=== PATIENT | male | born 1945 | race African-American/Black ===

== ENCOUNTER 2017-04-01 08:53 | Inpatient (IN) | payer MEDICARE, MEDICAID ==
[~2017-04-01] VITALS: Ht 190.5 cm; Wt 85.7 kg
[~2017-04-01 08:53] MED LIST: AMLO5TAB4 PO; ASPI-1158 PO; COR25 PO; LOSA50TA20 PO
[2017-04-01] MEDS ORDERED: MORPHINE SULFATE 4 MG/ML CPJ (NOT FOR IM USE) IV STA ×2 (09:10→12:54)
[2017-04-01] MEDS ORDERED: SODIUM CHLORIDE 0.9% 500 ML IV ONE (09:10)
[2017-04-01] MEDS ORDERED: ONDANSETRON HCL 4MG/2ML VIAL IV STA ×2 (09:10→12:54)
[2017-04-01 09:37] LABS: HEMATOCRIT. 37.6 % (42.0-52.0); HEMOGLOBIN. 12.5 g/dL (14.0-18.0); MEAN CORPUSCULAR HEMOGLOBIN 30.2 pg (28.0-32.0); MEAN PLATELET VOLUME 8.5 fl (7.4-10.4); PLATELET 148 x1000/uL (130-400); RED BLOOD CELL COUNT 4.13 mill/uL (4.7-6.1); RED CELL DISTRIBUTION WIDTH 14.4 % (11.6-14.6)
[2017-04-01 09:43] LABS: PROTHROMBIN TIME 10.1 sec
[2017-04-01 09:52] LABS: CARBON DIOXIDE 26 mEq/L (21-32); CHLORIDE 104 mEq/L (98-107); TROPONIN I < 0.02 ng/mL (0.00-0.04)
[2017-04-01 10:02] LABS: PLATELET ESTIMATE NORMAL
[2017-04-01] MEDS ORDERED: SODIUM CHLORIDE 0.9% 10ML VIAL ONE (10:37)
[2017-04-01] MEDS ORDERED: IOHEXOL-350 100 ML BOTTLE ONE (10:37)
[2017-04-01 11:32] LABS: CLARITY URINE CLEAR (CLEAR); COLOR URINE YELLOW (YELLOW); GLUCOSE URINE NEGATIVE (NEGATIVE); KETONES URINE NEGATIVE (NEGATIVE); LEUKOCYTE ESTERASE URINE NEGATIVE (NEGATIVE); NITRITE URINE NEGATIVE (NEGATIVE); OCCULT BLOOD URINE NEGATIVE (NEGATIVE); PH URINE 5.5 (4.5-8.0); PROTEIN URINE NEGATIVE (NEGATIVE); SPECIFIC GRAVITY URINE 1.029 (1.005-1.030)
[2017-04-01] MEDS ORDERED: ACETAMINOPHEN 650MG SUPP PR PRN (13:30)
[2017-04-01] MEDS ORDERED: ONDANSETRON HCL 4MG/2ML VIAL IV PRN (13:30)
[2017-04-01] MEDS ORDERED: HYDRALAZINE 20MG/ML VIAL IV PRN (13:30)
[2017-04-01] MEDS ORDERED: HYDROMORPHONE HCL/PF 2MG/ML CPJ IV PRN (13:30)
[2017-04-01 16:30] VITALS: BP 137/83
[2017-04-01] MEDS ORDERED: VALS80TA2 PO (16:47)
[2017-04-01] MEDS ORDERED: SPIR25TA4 PO (16:47)
[2017-04-01] MEDS ORDERED: CARV6.2548 PO (16:47)
[2017-04-01] MEDS ORDERED: TAMS-11 PO (16:47)
[2017-04-01] MEDS ORDERED: FURO40TA5 PO (16:47)
[2017-04-01] MEDS: DEXT 5%/0.45% NACL 1000ML 1,000 ML IV SCH (17:18)
[2017-04-01 20:00] VITALS: BP 115/73
[2017-04-01] MEDS: IPRATROPIUM/ALBUTEROL 0.5-3(2.5)MG/3ML NEB INH SCH (20:57)
[2017-04-02] VITALS: BP 125/76
[2017-04-02] MEDS: IPRATROPIUM/ALBUTEROL 0.5-3(2.5)MG/3ML NEB INH SCH ×3 (02:12→16:45)
[2017-04-02 04:00] VITALS: BP 121/71
[2017-04-02 07:58] LABS: BASOPHILS % 0.2 % (0.0-2.0); EOSINOPHILS % 5.9 % (0.0-5.0); HEMOGLOBIN. 10.6 g/dL (14.0-18.0); LYMPHOCYTES % 25.4 % (20.0-50.0); MEAN CORPUSCULAR HEMOGLOBIN 30.3 pg (28.0-32.0); MEAN CORPUSCULAR VOLUME 91.2 fL (80.0-94.0); MEAN PLATELET VOLUME 8.8 fl (7.4-10.4); NEUTROPHILS % 55.5 % (40.0-76.0); PLATELET 137 x1000/uL (130-400); RED BLOOD CELL COUNT 3.51 mill/uL (4.7-6.1); RED CELL DISTRIBUTION WIDTH 14.5 % (11.6-14.6)
[2017-04-02 08:00] VITALS: BP 121/77
[2017-04-02 08:27] LABS: CHLORIDE 106 mEq/L (98-107)
[2017-04-02 08:35] LABS: CARBON DIOXIDE 23 mEq/L (21-32); HDL CHOLESTEROL 60 mg/dL (40-59); LDL CHOLESTEROL 67 mg/dL (5-100)
[2017-04-02] MEDS ORDERED: LOSARTAN POTASSIUM 50 MG TABLET PO SCH (09:00)
[2017-04-02] MEDS ORDERED: SPIRONOLACTONE 25MG TABLET PO SCH (09:00)
[2017-04-02] MEDS ORDERED: TAMSULOSIN HCL 0.4MG SR CAPSULE PO SCH (09:00)
[2017-04-02] MEDS ORDERED: MEDICATION NOT ON FORMULARY EA (Valsartan (Diovan) 80 MG) PO SCH (09:00)
[2017-04-02] MEDS ORDERED: PANTOPRAZOLE SODIUM 40 MG/VIAL IV SCH (09:00)
[2017-04-02] MEDS ORDERED: FUROSEMIDE 40MG TABLET PO SCH (09:00)
[2017-04-02] MEDS ORDERED: GLYCERIN PEDIATRIC SUPPOSITORY PR PRN (09:15)
[2017-04-02] MEDS: CARVEDILOL 6.25 MG TABLET PO SCH ×2 (09:38→16:27)
[2017-04-02] MEDS: DEXT 5%/0.45% NACL 1000ML 1,000 ML IV SCH (09:40)
[2017-04-02] MEDS ORDERED: GLYCERIN ADULT SUPPOSITORY PR PRN (10:00)
[2017-04-02 12:00] VITALS: BP 120/79
[2017-04-02 16:00] VITALS: BP 116/80
[2017-04-02 16:45] VITALS: BP 117/72
== END 2017-04-02 17:04 | disposition home or self-care (01) | DRG 390 ==
LOC: ER 09:02 → 7WST 13:25 → EDBEDREQSVC 13:28 → EDBEDREQ 13:28 → ENRESERV 14:16 → 7WST 16:30
PROVIDERS: ADMIT Internal Medicine Nephrology; ATTEND Internal Medicine Nephrology
DX: K56.60 Unspecified intestinal obstruction (principal); E78.00 Pure hypercholesterolemia, unspecified; E78.5 Hyperlipidemia, unspecified; F17.200 Nicotine dependence, unspecified, uncomplicated; I11.0 Hypertensive heart disease with heart failure; I25.10 Atherosclerotic heart disease of native coronary artery without angina pectoris; I50.9 Heart failure, unspecified; K59.00 Constipation, unspecified; J44.9 Chronic obstructive pulmonary disease, unspecified; Z86.79 Personal history of other diseases of the circulatory system; Z88.8 Allergy status to other drugs, medicaments and biological substances; I25.2 Old myocardial infarction; Z90.49 Acquired absence of other specified parts of digestive tract; Z79.899 Other long term (current) drug therapy; Z90.81 Acquired absence of spleen; Z95.1 Presence of aortocoronary bypass graft; Z95.810 Presence of automatic (implantable) cardiac defibrillator
CPT/HCPCS: 36415; 71275; 74000; 74174; 80053; 80061; 81003; 83690; 84484; 85025; 85610; 87040; 93005; 93306; 93970; 94640; 94664; 96361; 96374; 96375; 96376; 99285; A4216; C9113; J1170; J2270; J2405; J7030; J7040; J7620; Q9967

== ENCOUNTER 2017-12-26 12:57 | Emergency (ER) | payer MEDICARE, MEDICAID ==
[~2017-12-26] VITALS: Ht 190.5 cm; Wt 90.0 kg
[~2017-12-26 12:57] MED LIST changes: -AMLO5TAB4 PO; -ASPI-1158 PO; +BUDE6HFA INH; +CARV6.2548 PO; -COR25 PO; +FURO40TA5 PO; +IBUP-2030 PO; +LOSA25TA12 PO; -LOSA50TA20 PO; +RIVA1TAB PO; +SPIR25TA4 PO; +TAMS0.4C31 PO
[2017-12-26] MEDS ORDERED: IPRATROPIUM BROMIDE (0.02%) 0.5MG/2.5ML NEB HHN STA (13:23)
[2017-12-26] MEDS ORDERED: METHYLPREDNISOLONE SOD SUCC 125 MG/2 ML VIAL IV STA (13:23)
[2017-12-26] MEDS: ALBUTEROL (0.083%) 2.5MG/3ML NEB HHN SCH ×3 (13:23→14:30)
[2017-12-26 13:58] LABS: CHLORIDE 108 mEq/L (98-107)
[2017-12-26 14:00] LABS: INR 1.3; PROTHROMBIN TIME 13.4 sec (9.4-11.6)
[2017-12-26 14:04] LABS: BASOPHILS % 0.6 % (0.0-2.0); HEMATOCRIT. 36.7 % (42.0-52.0); HEMOGLOBIN. 11.8 g/dL (14.0-18.0); LYMPHOCYTES % 25.5 % (20.0-50.0); MEAN CORPUSCULAR HEMOGLOBIN 28.9 pg (28.0-32.0); MEAN CORPUSCULAR VOLUME 89.5 fL (80.0-94.0); MEAN PLATELET VOLUME 9.2 fl (7.4-10.4); MONOCYTES % 7.9 % (2.0-8.0); PLATELET 235 x1000/uL (130-400); RED CELL DISTRIBUTION WIDTH 14.3 % (11.6-14.6)
[2017-12-26 15:53] LABS: CLARITY URINE CLEAR (CLEAR); COLOR URINE YELLOW (YELLOW); KETONES URINE NEGATIVE (NEGATIVE); LEUKOCYTE ESTERASE URINE NEGATIVE (NEGATIVE); NITRITE URINE NEGATIVE (NEGATIVE); OCCULT BLOOD URINE TRACE (NEGATIVE); PH URINE 6.5 (4.5-8.0); PROTEIN URINE NEGATIVE (NEGATIVE); SPECIFIC GRAVITY URINE 1.019 (1.005-1.030)
[2017-12-26] MEDS ORDERED: IOHEXOL-350 100 ML BOTTLE ONE (18:25)
[2017-12-26 21:40] VITALS: BP 135/77
== END 2017-12-26 22:00 | disposition home or self-care (01) ==
LOC: ER 14:10
DX: J44.1 Chronic obstructive pulmonary disease with (acute) exacerbation (principal); R10.9 Unspecified abdominal pain; D64.9 Anemia, unspecified; E83.51 Hypocalcemia; I11.0 Hypertensive heart disease with heart failure; I44.0 Atrioventricular block, first degree; I50.9 Heart failure, unspecified; K80.20 Calculus of gallbladder without cholecystitis without obstruction; J90 Pleural effusion, not elsewhere classified; N20.0 Calculus of kidney; N40.0 Benign prostatic hyperplasia without lower urinary tract symptoms; E87.8 Other disorders of electrolyte and fluid balance, not elsewhere classified; F17.200 Nicotine dependence, unspecified, uncomplicated; Z90.81 Acquired absence of spleen; Z86.718 Personal history of other venous thrombosis and embolism; Z95.810 Presence of automatic (implantable) cardiac defibrillator
CPT/HCPCS: 36415; 71045; 71275; 74176; 80053; 81003; 83880; 84484; 85025; 85610; 93005; 94640; 96374; 99285; J2930; J7611; Q9967

== ENCOUNTER 2018-10-11 08:41 | Inpatient (IN) | payer MEDICARE, MEDICAID ==
[~2018-10-11] VITALS: Ht 190.5 cm; Wt 88.5 kg
[~2018-10-11 08:41] MED LIST changes: -SPIR25TA4 PO; +SPIR25TA6 PO
[2018-10-11] MEDS ORDERED: ASPIRIN 81MG TABLET PO ONE (10:00)
[2018-10-11] MEDS ORDERED: IPRATROPIUM BROMIDE (0.02%) 0.5MG/2.5ML NEB HHN STA ×2 (10:29→13:34)
[2018-10-11] MEDS ORDERED: ALBUTEROL (0.083%) 2.5MG/3ML NEB HHN STA ×2 (10:29→13:34)
[2018-10-11 10:59] LABS: BASOPHILS % 0.8 % (0.0-2.0); EOSINOPHILS % 1.9 % (0.0-5.0); HEMATOCRIT. 41.7 % (42.0-52.0); HEMOGLOBIN. 13.5 g/dL (14.0-18.0); MEAN CORPUSCULAR HEMOGLOBIN 29.5 pg (28.0-32.0); MEAN CORPUSCULAR VOLUME 91.4 fL (80.0-94.0); MEAN PLATELET VOLUME 9.2 fl (7.4-10.4); MONOCYTES % 10.2 % (2.0-8.0); NEUTROPHILS % 66.1 % (40.0-76.0); PLATELET 211 x1000/uL (130-400); RED BLOOD CELL COUNT 4.56 mill/uL (4.7-6.1); RED CELL DISTRIBUTION WIDTH 15.1 % (11.6-14.6)
[2018-10-11 11:30] LABS: CHLORIDE 105 mEq/L (98-107)
[2018-10-11] MEDS ORDERED: METHYLPREDNISOLONE SOD SUCC 125 MG/2 ML VIAL IV STA (13:34)
[2018-10-11] MEDS ORDERED: MAGNESIUM CITRATE 300ML SOLUTION PO ONE (14:00)
[2018-10-11] MEDS ORDERED: DOCUSATE SODIUM 100MG CAPSULE PO PRN (14:30)
[2018-10-11] MEDS ORDERED: ONDANSETRON HCL 4MG/2ML INJ IV PRN (14:30)
[2018-10-11] MEDS ORDERED: ENOXAPARIN 40MG/0.4ML SYR SUBCUT SCH (14:30)
[2018-10-11] MEDS ORDERED: ACETAMINOPHEN 325MG TABLET PO PRN (14:30)
[2018-10-11] MEDS ORDERED: CLONIDINE 0.1MG TABLET PO PRN (14:30)
[2018-10-11] MEDS ORDERED: LEVOFLOXACIN 500MG PREMIX 100 ML IV NR (18:00)
[2018-10-11] MEDS ORDERED: IPRATROPIUM/ALBUTEROL 0.5-3(2.5)MG/3ML NEB INH NR (18:00)
[2018-10-11] MEDS ORDERED: FUROSEMIDE 40MG TABLET PO NR (18:00)
[2018-10-11] MEDS ORDERED: LOSARTAN POTASSIUM 25 MG TABLET PO NR (18:00)
[2018-10-11] MEDS ORDERED: SPIRONOLACTONE 25MG TABLET PO NR (18:00)
[2018-10-11] MEDS: IPRATROPIUM/ALBUTEROL 0.5-3(2.5)MG/3ML NEB INH SCH (20:10)
[2018-10-11] MEDS ORDERED: ZOLPIDEM TARTRATE 5MG TABLET PO PRN (21:15)
[2018-10-11 21:16] VITALS: BP 126/85
[2018-10-11] MEDS: CARVEDILOL 6.25 MG TABLET PO SCH (23:10)
[2018-10-11] MEDS ORDERED: RIVAROXABAN 10 MG TABLET PO SCH (23:16)
[2018-10-11 23:25] VITALS: BP 126/85
[2018-10-12] MEDS: METHYLPREDNISOLONE SOD SUCC 125 MG/2 ML VIAL IV SCH ×2 (00:06→06:56)
[2018-10-12] MEDS: LOSARTAN POTASSIUM 25 MG TABLET PO SCH ×2 (00:06→08:55)
[2018-10-12] MEDS: FUROSEMIDE 40MG TABLET PO SCH ×2 (00:06→08:55)
[2018-10-12] MEDS: SPIRONOLACTONE 25MG TABLET PO SCH ×2 (00:07→08:55)
[2018-10-12] MEDS: IPRATROPIUM/ALBUTEROL 0.5-3(2.5)MG/3ML NEB INH SCH ×2 (01:31→10:11)
[2018-10-12 04:00] VITALS: BP 133/74
[2018-10-12 07:07] LABS: HEMATOCRIT. 38.3 % (42.0-52.0); HEMOGLOBIN. 12.4 g/dL (14.0-18.0); MEAN CORPUSCULAR HEMOGLOBIN 29.2 pg (28.0-32.0); MEAN CORPUSCULAR VOLUME 89.8 fL (80.0-94.0); MEAN PLATELET VOLUME 9.1 fl (7.4-10.4); PLATELET 206 x1000/uL (130-400); RED BLOOD CELL COUNT 4.26 mill/uL (4.7-6.1); RED CELL DISTRIBUTION WIDTH 14.7 % (11.6-14.6)
[2018-10-12 07:17] LABS: CHLORIDE 105 mEq/L (98-107)
[2018-10-12 07:31] LABS: HDL CHOLESTEROL 66 mg/dL (40-59); LDL CHOLESTEROL 99 mg/dL (5-100)
[2018-10-12] MEDS ORDERED: RIVAROXABAN 20 MG TABLET PO SCH ×2 (07:45→17:00)
[2018-10-12 08:00] VITALS: BP 125/84
[2018-10-12] MEDS: CARVEDILOL 6.25 MG TABLET PO SCH (08:55)
[2018-10-12] MEDS ORDERED: LEVOFLOXACIN 500MG PREMIX 100 ML IV SCH ×2 (14:00→19:00)
[2018-10-12 14:18] LABS: PLATELET ESTIMATE NORMAL
== END 2018-10-12 11:00 | disposition left against medical advice (07) | DRG 191 ==
LOC: ER 08:41 → 5WST 13:57 → EDBEDREQ 13:59 → ENRESERV 21:56
PROVIDERS: ADMIT Internal Medicine Nephrology; ATTEND Internal Medicine Nephrology
DX: J44.1 Chronic obstructive pulmonary disease with (acute) exacerbation (principal); E44.0 Moderate protein-calorie malnutrition; I11.0 Hypertensive heart disease with heart failure; I50.9 Heart failure, unspecified; K59.00 Constipation, unspecified; N40.0 Benign prostatic hyperplasia without lower urinary tract symptoms; K80.20 Calculus of gallbladder without cholecystitis without obstruction; Z53.21 Procedure and treatment not carried out due to patient leaving prior to being seen by health care provider; Z86.711 Personal history of pulmonary embolism; Z87.891 Personal history of nicotine dependence; Z90.81 Acquired absence of spleen; Z95.0 Presence of cardiac pacemaker; Z87.81 Personal history of (healed) traumatic fracture; Z68.24 Body mass index [BMI] 24.0-24.9, adult; Z88.8 Allergy status to other drugs, medicaments and biological substances
CPT/HCPCS: 36415; 71045; 74176; 76775; 80061; 83880; 84484; 93005; 93970; 96374; 96375; 97162; 99291; J1956; J2930; J7611; J7620

== ENCOUNTER 2019-01-03 05:37 | Inpatient (IN) | payer MEDICARE, MEDICAID ==
[~2019-01-03] VITALS: Ht 190.5 cm; Wt 88.0 kg
[2019-01-03] MEDS ORDERED: ALBUTEROL (0.083%) 2.5MG/3ML NEB HHN ONE ×2 (06:15→09:00)
[2019-01-03] MEDS ORDERED: HYDROCODONE/ACETAMINOPHEN 5/325MG TABLET PO ONE (06:15)
[2019-01-03] MEDS ORDERED: LORAZEPAM 0.5MG TABLET PO ONE (06:15)
[2019-01-03 06:16] LABS: BASOPHILS % 0.9 % (0.0-2.0); EOSINOPHILS % 1.8 % (0.0-5.0); HEMATOCRIT. 36.9 % (42.0-52.0); LYMPHOCYTES % 23.8 % (20.0-50.0); MEAN CORPUSCULAR HEMOGLOBIN 29.2 pg (28.0-32.0); MEAN CORPUSCULAR VOLUME 89.8 fL (80.0-94.0); MONOCYTES % 7.6 % (2.0-8.0); NEUTROPHILS % 65.9 % (40.0-76.0); PLATELET 193 x1000/uL (130-400); RED BLOOD CELL COUNT 4.11 mill/uL (4.7-6.1); RED CELL DISTRIBUTION WIDTH 15.1 % (11.6-14.6)
[2019-01-03 06:21] LABS: CHLORIDE 106 mEq/L (98-107)
[2019-01-03] MEDS ORDERED: METHYLPREDNISOLONE SOD SUCC 125 MG/2 ML VIAL IV ONE (07:00)
[2019-01-03] MEDS ORDERED: FUROSEMIDE 40MG/4ML VIAL IVP ONE (09:00)
[2019-01-03] MEDS ORDERED: CLONIDINE 0.1MG TABLET PO PRN (10:15)
[2019-01-03] MEDS ORDERED: ACETAMINOPHEN 325MG TABLET PO PRN (10:15)
[2019-01-03] MEDS ORDERED: IPRATROPIUM/ALBUTEROL 0.5-3(2.5)MG/3ML NEB INH SCH (10:15)
[2019-01-03] MEDS ORDERED: ONDANSETRON HCL 4MG/2ML INJ IV PRN (10:15)
[2019-01-03] MEDS ORDERED: HYDROCODONE/ACETAMINOPHEN 5/325MG TABLET PO PRN (10:15)
[2019-01-03] MEDS: AMLODIPINE 5MG TABLET PO SCH (11:00)
[2019-01-03 11:02] VITALS: BP 147/97
[2019-01-03] MEDS ORDERED: POTASSIUM CHLORIDE 20MEQ TABLET SR PO NR (11:30)
[2019-01-03] MEDS: TAMSULOSIN HCL 0.4MG SR CAPSULE PO SCH (11:45)
[2019-01-03] MEDS: ENOXAPARIN 40MG/0.4ML SYR SUBCUT SCH (11:45)
[2019-01-03] MEDS: METHYLPREDNISOLONE SOD SUCC 40 MG/ML VIAL IV SCH ×2 (13:17→21:17)
[2019-01-03] MEDS: AZITHROMYCIN 500 MG in DEXT 5% WATER 250 ML IV SCH (13:17)
[2019-01-03 13:28] LABS: BG BASE EXCESS 2.1 mmol/L (-2.0-2.0); BG CARBOXYHEMOGLOBIN 0.1 % (0.5-1.5); BG DEOXYHEMOGLOBIN 5.5 % (0.0-5.0); BG FRACTION INSPIRED OXYGEN 21; BG HCO3 ACT 24.7 mmol/L (22.0-26.0); BG METHEMOGLOBIN 0.2 % (0.0-1.5); BG OXYGEN SATURATION 94.5 % (92.0-98.5); BG OXYHEMOGLOBIN 94.2 % (94.0-97.0); BG PCO2 32.5 mmHg (35.0-45.0); BG PH 7.499 (7.350-7.450); BG PO2 67.5 mmHg (75.0-100.0); BG SAMPLE SITE RIGHT RADIAL; BG TOTAL HEMOGLOBIN 13.2 g/dL (12.0-18.0); BG VENT MODE ROOM AIR
[2019-01-03] MEDS: IPRATROPIUM/ALBUTEROL 0.5-3(2.5)MG/3ML NEB INH SCH ×2 (15:35→22:03)
[2019-01-03] MEDS ORDERED: RIVAROXABAN 15 MG TABLET PO SCH (17:00)
[2019-01-03 17:01] VITALS: BP 121/93
[2019-01-03] MEDS: LORAZEPAM 0.5MG TABLET PO PRN (17:22)
[2019-01-03] MEDS ORDERED: MAGNESIUM CITRATE 300ML SOLUTION PO NR (18:30)
[2019-01-03 20:00] VITALS: BP 127/89
[2019-01-03] MEDS: CARVEDILOL 6.25 MG TABLET PO SCH (21:18)
[2019-01-04] VITALS (7 sets, daily range): BP systolic 93–125; BP diastolic 50–99
[2019-01-04] MEDS: IPRATROPIUM/ALBUTEROL 0.5-3(2.5)MG/3ML NEB INH SCH ×3 (01:32→07:33)
[2019-01-04] MEDS: METHYLPREDNISOLONE SOD SUCC 40 MG/ML VIAL IV SCH ×3 (06:17→20:26)
[2019-01-04] MEDS: FUROSEMIDE 40MG TABLET PO SCH (08:48)
[2019-01-04] MEDS: CARVEDILOL 6.25 MG TABLET PO SCH ×2 (08:48→20:26)
[2019-01-04] MEDS: TAMSULOSIN HCL 0.4MG SR CAPSULE PO SCH ×2 (08:48→08:54)
[2019-01-04] MEDS: AMLODIPINE 5MG TABLET PO SCH (08:48)
[2019-01-04 08:58] LABS: HEMATOCRIT. 37.4 % (42.0-52.0); HEMOGLOBIN. 12.2 g/dL (14.0-18.0); MEAN CORPUSCULAR HEMOGLOBIN 29.1 pg (28.0-32.0); MEAN CORPUSCULAR VOLUME 89.4 fL (80.0-94.0); MEAN PLATELET VOLUME 8.6 fl (7.4-10.4); PLATELET 185 x1000/uL (130-400); RED BLOOD CELL COUNT 4.18 mill/uL (4.7-6.1); RED CELL DISTRIBUTION WIDTH 15.3 % (11.6-14.6)
[2019-01-04 09:06] LABS: CHLORIDE 106 mEq/L (98-107)
[2019-01-04] MEDS ORDERED: IPRATROPIUM/ALBUTEROL 0.5-3(2.5)MG/3ML NEB HHN PRN (09:15)
[2019-01-04 09:16] LABS: HDL CHOLESTEROL 69 mg/dL (40-59)
[2019-01-04 09:17] LABS: LDL CHOLESTEROL 92 mg/dL (5-100)
[2019-01-04 09:36] LABS: BG BASE EXCESS -0.4 mmol/L (-2.0-2.0); BG CARBOXYHEMOGLOBIN 0.5 % (0.5-1.5); BG DEOXYHEMOGLOBIN 3.1 % (0.0-5.0); BG FRACTION INSPIRED OXYGEN 21; BG HCO3 ACT 21.7 mmol/L (22.0-26.0); BG METHEMOGLOBIN 0.3 % (0.0-1.5); BG OXYGEN SATURATION 96.9 % (92.0-98.5); BG OXYHEMOGLOBIN 96.1 % (94.0-97.0); BG PCO2 28.3 mmHg (35.0-45.0); BG PH 7.503 (7.350-7.450); BG PO2 81.9 mmHg (75.0-100.0); BG SAMPLE SITE RIGHT BRACHIAL; BG TOTAL HEMOGLOBIN 12.6 g/dL (12.0-18.0); BG VENT MODE ROOM AIR
[2019-01-04 09:52] LABS: PLATELET ESTIMATE NORMAL
[2019-01-04] MEDS: IPRATROPIUM/ALBUTEROL 0.5-3(2.5)MG/3ML NEB HHN SCH ×3 (11:16→21:06)
[2019-01-04] MEDS: ENOXAPARIN 40MG/0.4ML SYR SUBCUT SCH (12:00)
[2019-01-04] MEDS: AZITHROMYCIN 500 MG in DEXT 5% WATER 250 ML IV SCH (12:50)
[2019-01-04] MEDS: LORAZEPAM 0.5MG TABLET PO PRN ×2 (14:23→21:49)
[2019-01-04] MEDS ORDERED: HYDROMORPHONE HCL/PF 2MG/ML CPJ IV PRN (15:30)
[2019-01-04 18:12] LABS: CREATINE KINASE 96 IU/L (39-308)
[2019-01-04 18:13] LABS: CREATINE KINASE MB FRACTION 1.2 ng/mL (0.5-3.6)
[2019-01-04] MEDS ORDERED: LACTULOSE 20G/30ML UDC PO PRN (21:30)
[2019-01-05] VITALS: BP 117/85
[2019-01-05 04:00] VITALS: BP 118/73
[2019-01-05] MEDS: METHYLPREDNISOLONE SOD SUCC 40 MG/ML VIAL IV SCH (04:55)
[2019-01-05 07:14] LABS: HEMATOCRIT. 39.3 % (42.0-52.0); HEMOGLOBIN. 12.8 g/dL (14.0-18.0); MEAN CORPUSCULAR HEMOGLOBIN 29.2 pg (28.0-32.0); MEAN CORPUSCULAR VOLUME 89.9 fL (80.0-94.0); MEAN PLATELET VOLUME 8.8 fl (7.4-10.4); PLATELET 203 x1000/uL (130-400); RED BLOOD CELL COUNT 4.37 mill/uL (4.7-6.1); RED CELL DISTRIBUTION WIDTH 15.2 % (11.6-14.6)
[2019-01-05 08:00] VITALS: BP 108/70
[2019-01-05] MEDS: LORAZEPAM 0.5MG TABLET PO PRN ×2 (08:25→16:24)
[2019-01-05] MEDS: FUROSEMIDE 40MG TABLET PO SCH ×2 (08:25→16:24)
[2019-01-05] MEDS: CARVEDILOL 6.25 MG TABLET PO SCH (08:26)
[2019-01-05] MEDS: TAMSULOSIN HCL 0.4MG SR CAPSULE PO SCH (08:26)
[2019-01-05] MEDS: AMLODIPINE 5MG TABLET PO SCH (08:27)
[2019-01-05] MEDS: IPRATROPIUM/ALBUTEROL 0.5-3(2.5)MG/3ML NEB HHN SCH ×4 (09:26→20:30)
[2019-01-05] MEDS ORDERED: FUROSEMIDE 40MG/4ML VIAL IVP SCH (09:30)
[2019-01-05 09:43] LABS: PLATELET ESTIMATE NORMAL
[2019-01-05] MEDS: PREDNISONE 20MG TABLET PO SCH (09:52)
[2019-01-05 12:00] VITALS: BP 106/77
[2019-01-05] MEDS: ENOXAPARIN 40MG/0.4ML SYR SUBCUT SCH (12:57)
[2019-01-05 16:00] VITALS: BP 100/63
[2019-01-05] MEDS: AZITHROMYCIN 500 MG in DEXT 5% WATER 250 ML IV SCH (16:23)
[2019-01-05 20:00] VITALS: BP 110/72
[2019-01-05] MEDS: CARVEDILOL 12.5MG TABLET PO SCH (20:55)
[2019-01-06] VITALS: BP 105/63
[2019-01-06] MEDS: LORAZEPAM 0.5MG TABLET PO PRN (03:11)
[2019-01-06 04:00] VITALS: BP 121/73
[2019-01-06] MEDS: IPRATROPIUM/ALBUTEROL 0.5-3(2.5)MG/3ML NEB HHN SCH ×4 (05:53→17:00)
[2019-01-06 08:00] VITALS: BP 116/67
[2019-01-06] MEDS: PREDNISONE 20MG TABLET PO SCH (08:40)
[2019-01-06] MEDS: CARVEDILOL 12.5MG TABLET PO SCH (08:40)
[2019-01-06] MEDS: FUROSEMIDE 40MG TABLET PO SCH (08:40)
[2019-01-06] MEDS: TAMSULOSIN HCL 0.4MG SR CAPSULE PO SCH (08:40)
[2019-01-06] MEDS: ENOXAPARIN 40MG/0.4ML SYR SUBCUT SCH (13:30)
[2019-01-06] MEDS ORDERED: AZITHROMYCIN 500 MG in DEXT 5% WATER 250 ML IV SCH (14:00)
[2019-01-06 15:56] VITALS: BP 95/71
[2019-01-06] MEDS ORDERED: AMIODARONE HCL 200 MG TABLET PO SCH (18:10)
[2019-01-07] MEDS ORDERED: AZITHROMYCIN 500 MG TABLET PO SCH (09:00)
[2019-01-09] MEDS ORDERED: PREDNISONE 10MG TABLET PO SCH (09:00)
[2019-01-13] MEDS ORDERED: PREDNISONE 20MG TABLET PO SCH (09:00)
[2019-01-17] MEDS ORDERED: PREDNISONE 10MG TABLET PO SCH (09:00)
== END 2019-01-06 17:20 | disposition home or self-care (01) | DRG 291 ==
LOC: ER 05:37 → 8WST 08:48 → ENRESERV 09:59
PROVIDERS: ADMIT Internal Medicine Nephrology; ATTEND Internal Medicine Nephrology
DX: I11.0 Hypertensive heart disease with heart failure (principal); J96.00 Acute respiratory failure, unspecified whether with hypoxia or hypercapnia; J44.1 Chronic obstructive pulmonary disease with (acute) exacerbation; E46 Unspecified protein-calorie malnutrition; J84.9 Interstitial pulmonary disease, unspecified; N17.9 Acute kidney failure, unspecified; I50.43 Acute on chronic combined systolic (congestive) and diastolic (congestive) heart failure; I42.9 Cardiomyopathy, unspecified; E87.6 Hypokalemia; I25.10 Atherosclerotic heart disease of native coronary artery without angina pectoris; R74.0 Nonspecific elevation of levels of transaminase and lactic acid dehydrogenase [LDH]; I48.91 Unspecified atrial fibrillation; I27.20 Pulmonary hypertension, unspecified; E11.9 Type 2 diabetes mellitus without complications; I07.1 Rheumatic tricuspid insufficiency; Z88.8 Allergy status to other drugs, medicaments and biological substances; Z79.899 Other long term (current) drug therapy; Z95.810 Presence of automatic (implantable) cardiac defibrillator; Z87.891 Personal history of nicotine dependence; Z79.01 Long term (current) use of anticoagulants; Z95.0 Presence of cardiac pacemaker; Z86.711 Personal history of pulmonary embolism; Z86.718 Personal history of other venous thrombosis and embolism; Z68.24 Body mass index [BMI] 24.0-24.9, adult
CPT/HCPCS: 36415; 36600; 71045; 78582; 80048; 80061; 82375; 82550; 82553; 82805; 83880; 84484; 93005; 93306; 93970; 94640; 96374; 96375; 97162; 97166; 99291; A9558; J0456; J1170; J1650; J1940; J2920; J2930; J7050; J7060; J7512; J7611; J7620

== ENCOUNTER 2019-01-22 05:55 | Inpatient (IN) | payer MEDICARE, MEDICAID ==
[~2019-01-22] VITALS: Ht 193 cm; Wt 92.1 kg
[2019-01-22] MEDS ORDERED: METHYLPREDNISOLONE SOD SUCC 125 MG/2 ML VIAL IV STA (06:20)
[2019-01-22] MEDS ORDERED: ALBUTEROL (0.083%) 2.5MG/3ML NEB HHN STA (06:20)
[2019-01-22 06:35] LABS: HEMATOCRIT. 37.3 % (42.0-52.0); HEMOGLOBIN. 12.5 g/dL (14.0-18.0); MEAN CORPUSCULAR HEMOGLOBIN 29.8 pg (28.0-32.0); MEAN CORPUSCULAR VOLUME 89.2 fL (80.0-94.0); PLATELET 212 x1000/uL (130-400); RED BLOOD CELL COUNT 4.18 mill/uL (4.7-6.1); RED CELL DISTRIBUTION WIDTH 15.5 % (11.6-14.6)
[2019-01-22 06:39] LABS: CHLORIDE 112 mEq/L (98-107)
[2019-01-22 07:14] LABS: ATYPICAL LYMPHOCYTES 4
[2019-01-22 07:15] LABS: PLATELET ESTIMATE NORMAL
[2019-01-22] MEDS ORDERED: ASPIRIN 81MG TABLET PO ONE (07:45)
[2019-01-22 14:00] VITALS: BP 103/74
[2019-01-22] MEDS ORDERED: ACETAMINOPHEN 325MG TABLET PO PRN (14:45)
[2019-01-22] MEDS ORDERED: CLONIDINE 0.1MG TABLET PO PRN (14:45)
[2019-01-22] MEDS ORDERED: DIPHENHYDRAMINE 50MG/ML VIAL IV PRN (14:45)
[2019-01-22] MEDS: LOSARTAN POTASSIUM 25 MG TABLET PO SCH (15:00)
[2019-01-22] MEDS: CARVEDILOL 6.25 MG TABLET PO SCH ×2 (15:00→22:04)
[2019-01-22] MEDS ORDERED: LACTULOSE 20G/30ML UDC PO PRN (15:00)
[2019-01-22] MEDS ORDERED: FUROSEMIDE 40MG/4ML VIAL IVP SCH (15:00)
[2019-01-22 16:26] VITALS: BP 118/81
[2019-01-22 16:52] LABS: BG CARBOXYHEMOGLOBIN 1.3 % (0.5-1.5); BG DEOXYHEMOGLOBIN 2.8 % (0.0-5.0); BG FRACTION INSPIRED OXYGEN 21; BG HCO3 ACT 17.1 mmol/L (22.0-26.0); BG METHEMOGLOBIN 0.2 % (0.0-1.5); BG OXYGEN SATURATION 97.2 % (92.0-98.5); BG OXYHEMOGLOBIN 95.7 % (94.0-97.0); BG PCO2 24.7 mmHg (35.0-45.0); BG PH 7.457 (7.350-7.450); BG PO2 91.6 mmHg (75.0-100.0); BG SAMPLE SITE RIGHT BRACHIAL; BG TOTAL HEMOGLOBIN 13.5 g/dL (12.0-18.0); BG VENT MODE ROOM AIR
[2019-01-22] MEDS: IPRATROPIUM/ALBUTEROL 0.5-3(2.5)MG/3ML NEB HHN SCH ×2 (17:07→21:01)
[2019-01-22] MEDS: APIXABAN 5 MG TABLET PO SCH (17:52)
[2019-01-22] MEDS: METHYLPREDNISOLONE SOD SUCC 40 MG/ML VIAL IV SCH (17:52)
[2019-01-22 20:00] VITALS: BP 124/87
[2019-01-22] MEDS: FAMOTIDINE 20MG TABLET PO SCH (22:03)
[2019-01-23] VITALS: BP 114/81
[2019-01-23] MEDS: METHYLPREDNISOLONE SOD SUCC 40 MG/ML VIAL IV SCH ×4 (00:08→17:59)
[2019-01-23] MEDS: IPRATROPIUM/ALBUTEROL 0.5-3(2.5)MG/3ML NEB HHN SCH ×6 (01:01→21:36)
[2019-01-23 04:00] VITALS: BP 116/68
[2019-01-23 07:04] LABS: HEMATOCRIT. 35.3 % (42.0-52.0); HEMOGLOBIN. 11.9 g/dL (14.0-18.0); MEAN CORPUSCULAR HEMOGLOBIN 29.9 pg (28.0-32.0); MEAN CORPUSCULAR VOLUME 88.6 fL (80.0-94.0); MEAN PLATELET VOLUME 8.7 fl (7.4-10.4); PLATELET 197 x1000/uL (130-400); RED BLOOD CELL COUNT 3.98 mill/uL (4.7-6.1); RED CELL DISTRIBUTION WIDTH 15.4 % (11.6-14.6)
[2019-01-23 07:15] LABS: CHLORIDE 112 mEq/L (98-107)
[2019-01-23 07:23] LABS: LDL CHOLESTEROL 75 mg/dL (5-100); PHOSPHORUS 3.6 mg/dL (2.5-4.9)
[2019-01-23 07:24] LABS: HDL CHOLESTEROL 72 mg/dL (40-59)
[2019-01-23 08:00] VITALS: BP 119/82
[2019-01-23] MEDS: APIXABAN 5 MG TABLET PO SCH ×3 (09:00→17:59)
[2019-01-23] MEDS: FUROSEMIDE 40MG/4ML VIAL IVP SCH ×3 (09:00→18:00)
[2019-01-23] MEDS: LOSARTAN POTASSIUM 25 MG TABLET PO SCH ×2 (09:00→12:31)
[2019-01-23] MEDS: FAMOTIDINE 20MG TABLET PO SCH ×3 (09:00→20:49)
[2019-01-23] MEDS: CARVEDILOL 6.25 MG TABLET PO SCH ×3 (09:00→20:49)
[2019-01-23] MEDS ORDERED: AZITHROMYCIN 500 MG in DEXT 5% WATER 250 ML IV SCH (10:00)
[2019-01-23 12:00] VITALS: BP 128/88
[2019-01-23 12:34] LABS: HEPATITIS B SURFACE ANTIGEN NEGATIVE
[2019-01-23 13:02] LABS: HEPATITIS A AB IGM NEGATIVE (NEGATIVE)
[2019-01-23 16:00] VITALS: BP 114/77
[2019-01-23 17:46] LABS: PLATELET ESTIMATE NORMAL
[2019-01-23 20:00] VITALS: BP 110/79
[2019-01-24] VITALS: BP 109/80
[2019-01-24] MEDS: METHYLPREDNISOLONE SOD SUCC 40 MG/ML VIAL IV SCH ×3 (00:42→17:43)
[2019-01-24] MEDS: IPRATROPIUM/ALBUTEROL 0.5-3(2.5)MG/3ML NEB HHN SCH ×6 (01:18→21:11)
[2019-01-24 06:17] LABS: HEMATOCRIT. 37.6 % (42.0-52.0); HEMOGLOBIN. 12.1 g/dL (14.0-18.0); MEAN CORPUSCULAR HEMOGLOBIN 28.9 pg (28.0-32.0); MEAN CORPUSCULAR VOLUME 89.5 fL (80.0-94.0); MEAN PLATELET VOLUME 9.1 fl (7.4-10.4); PLATELET 178 x1000/uL (130-400); RED CELL DISTRIBUTION WIDTH 15.5 % (11.6-14.6)
[2019-01-24 06:54] LABS: PHOSPHORUS 4.4 mg/dL (2.5-4.9)
[2019-01-24 08:00] VITALS: BP 126/84
[2019-01-24] MEDS: LOSARTAN POTASSIUM 25 MG TABLET PO SCH (09:07)
[2019-01-24] MEDS: CARVEDILOL 6.25 MG TABLET PO SCH ×2 (09:07→20:35)
[2019-01-24] MEDS: FAMOTIDINE 20MG TABLET PO SCH ×2 (09:07→20:35)
[2019-01-24] MEDS: APIXABAN 5 MG TABLET PO SCH ×2 (09:07→17:43)
[2019-01-24] MEDS: AZITHROMYCIN 500 MG TABLET PO SCH (09:08)
[2019-01-24] MEDS: FUROSEMIDE 40MG/4ML VIAL IVP SCH (09:08)
[2019-01-24 12:00] VITALS: BP 109/76
[2019-01-24 15:28] LABS: PLATELET ESTIMATE NORMAL
[2019-01-24 19:58] VITALS: BP 112/77
[2019-01-25] MEDS: IPRATROPIUM/ALBUTEROL 0.5-3(2.5)MG/3ML NEB HHN SCH ×7 (00:40→23:57)
[2019-01-25] MEDS: METHYLPREDNISOLONE SOD SUCC 40 MG/ML VIAL IV SCH (01:40)
[2019-01-25 03:59] VITALS: BP 90/55
[2019-01-25 07:23] LABS: HEMATOCRIT. 35.7 % (42.0-52.0); HEMOGLOBIN. 11.6 g/dL (14.0-18.0); MEAN CORPUSCULAR HEMOGLOBIN 29.3 pg (28.0-32.0); MEAN CORPUSCULAR VOLUME 89.9 fL (80.0-94.0); MEAN PLATELET VOLUME 9.1 fl (7.4-10.4); PLATELET 168 x1000/uL (130-400); RED BLOOD CELL COUNT 3.97 mill/uL (4.7-6.1); RED CELL DISTRIBUTION WIDTH 15.9 % (11.6-14.6)
[2019-01-25] MEDS ORDERED: METHYLPREDNISOLONE SOD SUCC 40 MG/ML VIAL IV SCH (09:00)
[2019-01-25] MEDS: AZITHROMYCIN 500 MG TABLET PO SCH (09:02)
[2019-01-25] MEDS: PREDNISONE 20MG TABLET PO SCH (09:02)
[2019-01-25] MEDS: FAMOTIDINE 20MG TABLET PO SCH ×2 (09:03→20:47)
[2019-01-25] MEDS: FUROSEMIDE 40MG TABLET PO SCH (09:03)
[2019-01-25] MEDS: LOSARTAN POTASSIUM 25 MG TABLET PO SCH (09:03)
[2019-01-25] MEDS: CARVEDILOL 6.25 MG TABLET PO SCH ×2 (09:03→20:48)
[2019-01-25] MEDS: APIXABAN 5 MG TABLET PO SCH ×2 (09:04→17:10)
[2019-01-25 12:06] VITALS: BP 100/77
[2019-01-25 14:12] LABS: PLATELET ESTIMATE NORMAL
[2019-01-25] MEDS ORDERED: ACETYLCYSTEINE 100MG/ML 10% VIAL 4ML INH SCH (15:00)
[2019-01-25] MEDS: ACETYLCYSTEINE 100MG/ML 10% VIAL 4ML INH SCH ×2 (15:01→23:57)
[2019-01-25 15:37] VITALS: BP 104/71
[2019-01-25 20:17] VITALS: BP 110/73
[2019-01-26 00:14] VITALS: BP 101/66
[2019-01-26 04:00] VITALS: BP 97/57
[2019-01-26] MEDS: IPRATROPIUM/ALBUTEROL 0.5-3(2.5)MG/3ML NEB HHN SCH ×3 (04:11→11:55)
[2019-01-26 08:00] VITALS: BP 111/82
[2019-01-26] MEDS: CARVEDILOL 6.25 MG TABLET PO SCH (08:06)
[2019-01-26] MEDS: FUROSEMIDE 40MG TABLET PO SCH (08:06)
[2019-01-26] MEDS: APIXABAN 5 MG TABLET PO SCH (08:09)
[2019-01-26] MEDS: PREDNISONE 20MG TABLET PO SCH (08:09)
[2019-01-26] MEDS: FAMOTIDINE 20MG TABLET PO SCH (08:09)
[2019-01-26] MEDS: LOSARTAN POTASSIUM 25 MG TABLET PO SCH (08:10)
[2019-01-26] MEDS: AZITHROMYCIN 500 MG TABLET PO SCH (08:12)
[2019-01-26] MEDS: ACETYLCYSTEINE 100MG/ML 10% VIAL 4ML INH SCH (08:16)
[2019-01-26 11:35] VITALS: BP 111/82
[2019-01-26 12:00] VITALS: BP 101/73
== END 2019-01-26 14:08 | disposition home or self-care (01) | DRG 291 ==
LOC: ER 05:55 → 6WST 07:38 → EDBEDREQ 07:41 → ENRESERV 13:11 → 6WST 14:16
PROVIDERS: ADMIT Internal Medicine Nephrology; ATTEND Internal Medicine Nephrology
DX: I11.0 Hypertensive heart disease with heart failure (principal); J96.20 Acute and chronic respiratory failure, unspecified whether with hypoxia or hypercapnia; J44.1 Chronic obstructive pulmonary disease with (acute) exacerbation; N17.9 Acute kidney failure, unspecified; I50.43 Acute on chronic combined systolic (congestive) and diastolic (congestive) heart failure; I42.9 Cardiomyopathy, unspecified; D64.9 Anemia, unspecified; E11.9 Type 2 diabetes mellitus without complications; F17.200 Nicotine dependence, unspecified, uncomplicated; I27.29 Other secondary pulmonary hypertension; K76.1 Chronic passive congestion of liver; K80.20 Calculus of gallbladder without cholecystitis without obstruction; K80.80 Other cholelithiasis without obstruction; Z79.51 Long term (current) use of inhaled steroids; Z79.899 Other long term (current) drug therapy; Z86.711 Personal history of pulmonary embolism; Z86.718 Personal history of other venous thrombosis and embolism; Z86.79 Personal history of other diseases of the circulatory system; Z95.810 Presence of automatic (implantable) cardiac defibrillator; Z95.828 Presence of other vascular implants and grafts; Z88.8 Allergy status to other drugs, medicaments and biological substances; Z90.49 Acquired absence of other specified parts of digestive tract
CPT/HCPCS: 36415; 36600; 71045; 76700; 78227; 80048; 80061; 80076; 80307; 80329; 82375; 82805; 83735; 83880; 84100; 84484; 86705; 86709; 86803; 87340; 93005; 93970; 94640; 96374; 99285; A9537; C1893; J0456; J1940; J2920; J2930; J7050; J7060; J7512; J7608; J7611; J7620

== ENCOUNTER 2019-02-24 05:37 | Inpatient (IN) | payer MEDICARE, MEDICAID ==
[~2019-02-24] VITALS: Ht 193 cm; Wt 94.3 kg
[~2019-02-24 05:37] MED LIST changes: -BUDE6HFA INH; -FURO40TA5 PO; -IBUP-2030 PO; -LOSA25TA12 PO; -RIVA1TAB PO; -SPIR25TA6 PO; -TAMS0.4C31 PO
[2019-02-24 06:55] LABS: CHLORIDE 107 mEq/L (98-107)
[2019-02-24 07:00] LABS: HEMATOCRIT. 41.6 % (42.0-52.0); HEMOGLOBIN. 13.7 g/dL (14.0-18.0); MEAN CORPUSCULAR HEMOGLOBIN 29.9 pg (28.0-32.0); MEAN CORPUSCULAR VOLUME 90.5 fL (80.0-94.0); MEAN PLATELET VOLUME 8.3 fl (7.4-10.4); PLATELET 166 x1000/uL (130-400); RED CELL DISTRIBUTION WIDTH 17.2 % (11.6-14.6)
[2019-02-24] MEDS ORDERED: FUROSEMIDE 40MG/4ML VIAL IVP NR (07:15)
[2019-02-24 08:17] LABS: NUCLEATED RED BLOOD CELLS 2 /100 WBC; PLATELET ESTIMATE NORMAL
[2019-02-24] MEDS ORDERED: IOHEXOL-350 100 ML BOTTLE ONE (09:08)
[2019-02-24] MEDS ORDERED: ACETAMINOPHEN 325MG TABLET PO PRN (10:15)
[2019-02-24] MEDS ORDERED: GUAIFENESIN 200MG/10ML SUGAR FREE UDC PO PRN (10:15)
[2019-02-24] MEDS ORDERED: ALBUTEROL (0.5%) 2.5MG/0.5ML NEB HHN ONE (10:15)
[2019-02-24] MEDS ORDERED: MAGNESIUM/ALUMINUM HYDROXIDE/SIMETHICONE 30ML UDC PO PRN (10:15)
[2019-02-24] MEDS ORDERED: CLONIDINE 0.1MG TABLET PO PRN (10:15)
[2019-02-24] MEDS ORDERED: METHYLPREDNISOLONE SOD SUCC 40 MG/ML VIAL IV SCH (10:15)
[2019-02-24] MEDS ORDERED: DOCUSATE SODIUM 100MG CAPSULE PO PRN (10:15)
[2019-02-24] MEDS ORDERED: ONDANSETRON HCL 4MG/2ML INJ IV PRN (10:15)
[2019-02-24] MEDS ORDERED: METHYLPREDNISOLONE SOD SUCC 125 MG/2 ML VIAL IV NR (10:30)
[2019-02-24] MEDS ORDERED: FUROSEMIDE 20MG/2ML VIAL IVP SCH (10:30)
[2019-02-24] MEDS ORDERED: ENOXAPARIN 40MG/0.4ML SYR SUBCUT SCH (10:45)
[2019-02-24] MEDS ORDERED: LOSARTAN POTASSIUM 25 MG TABLET PO NR (11:00)
[2019-02-24] MEDS ORDERED: ALBUTEROL (0.083%) 2.5MG/3ML NEB ONE (11:30)
[2019-02-24 13:30] VITALS: BP 135/89
[2019-02-24 16:00] VITALS: BP 118/80
[2019-02-24 17:16] VITALS: BP 135/89
[2019-02-24] MEDS: FUROSEMIDE 40MG/4ML VIAL IVP SCH (18:02)
[2019-02-24] MEDS: CARVEDILOL 6.25 MG TABLET PO SCH (18:07)
[2019-02-24 20:00] VITALS: BP 120/80
[2019-02-24] MEDS ORDERED: FURO40TA5 PO (20:00)
[2019-02-24] MEDS ORDERED: PRED10TA PO (20:09)
[2019-02-24] MEDS ORDERED: POTA20TA82 MT (20:09)
[2019-02-24] MEDS ORDERED: FAMO-135 PO (20:09)
[2019-02-24] MEDS ORDERED: LOSA25TA26 PO (20:09)
[2019-02-24] MEDS: IPRATROPIUM/ALBUTEROL 0.5-3(2.5)MG/3ML NEB HHN SCH (20:52)
[2019-02-24] MEDS: FAMOTIDINE 20MG TABLET PO SCH (22:32)
[2019-02-25] MEDS: IPRATROPIUM/ALBUTEROL 0.5-3(2.5)MG/3ML NEB HHN SCH ×6 (00:05→20:26)
[2019-02-25 00:33] VITALS: BP 135/78
[2019-02-25 04:00] VITALS: BP 127/72
[2019-02-25] MEDS: FUROSEMIDE 40MG/4ML VIAL IVP SCH ×2 (06:51→17:19)
[2019-02-25 08:04] LABS: HEMATOCRIT. 35.8 % (42.0-52.0); HEMOGLOBIN. 11.9 g/dL (14.0-18.0); MEAN CORPUSCULAR HEMOGLOBIN 29.8 pg (28.0-32.0); MEAN CORPUSCULAR VOLUME 89.2 fL (80.0-94.0); PLATELET 158 x1000/uL (130-400); RED BLOOD CELL COUNT 4.01 mill/uL (4.7-6.1); RED CELL DISTRIBUTION WIDTH 16.8 % (11.6-14.6)
[2019-02-25 08:07] LABS: BG BASE EXCESS 2.8 mmol/L (-2.0-2.0); BG CARBOXYHEMOGLOBIN 1.1 % (0.5-1.5); BG DEOXYHEMOGLOBIN 2.4 % (0.0-5.0); BG HCO3 ACT 25.9 mmol/L (22.0-26.0); BG METHEMOGLOBIN 0.3 % (0.0-1.5); BG OXYGEN SATURATION 97.6 % (92.0-98.5); BG OXYHEMOGLOBIN 96.2 % (94.0-97.0); BG PCO2 35.2 mmHg (35.0-45.0); BG PH 7.485 (7.350-7.450); BG PO2 93.1 mmHg (75.0-100.0); BG SAMPLE SITE RIGHT BRACHIAL; BG TOTAL HEMOGLOBIN 13.5 g/dL (12.0-18.0); BG VENT MODE ROOM AIR
[2019-02-25 08:11] LABS: CHLORIDE 105 mEq/L (98-107)
[2019-02-25 08:42] VITALS: BP 122/80
[2019-02-25] MEDS: LOSARTAN POTASSIUM 25 MG TABLET PO SCH (08:46)
[2019-02-25] MEDS: CARVEDILOL 6.25 MG TABLET PO SCH (08:47)
[2019-02-25] MEDS: SPIRONOLACTONE 25MG TABLET PO SCH (08:48)
[2019-02-25] MEDS ORDERED: ENOXAPARIN 40MG/0.4ML SYR SUBCUT SCH (09:00)
[2019-02-25 12:30] VITALS: BP 111/78
[2019-02-25 12:47] LABS: PLATELET ESTIMATE NORMAL
[2019-02-25] MEDS: POTASSIUM CHLORIDE 20MEQ TABLET SR PO SCH (15:07)
[2019-02-25 16:11] VITALS: BP 112/67
[2019-02-25] MEDS: APIXABAN 5 MG TABLET PO SCH (17:19)
[2019-02-25 20:00] VITALS: BP 124/84
[2019-02-25] MEDS: FAMOTIDINE 20MG TABLET PO SCH (21:10)
[2019-02-25] MEDS: CARVEDILOL 12.5MG TABLET PO SCH (21:13)
[2019-02-26] VITALS: BP 101/66
[2019-02-26 04:00] VITALS: BP 102/81
[2019-02-26] MEDS: IPRATROPIUM/ALBUTEROL 0.5-3(2.5)MG/3ML NEB HHN SCH ×4 (04:28→14:04)
[2019-02-26] MEDS: FUROSEMIDE 40MG/4ML VIAL IVP SCH (06:58)
[2019-02-26 07:34] LABS: HEMATOCRIT. 35.6 % (42.0-52.0); HEMOGLOBIN. 11.9 g/dL (14.0-18.0); MEAN CORPUSCULAR VOLUME 89.5 fL (80.0-94.0); MEAN PLATELET VOLUME 8.8 fl (7.4-10.4); PLATELET 141 x1000/uL (130-400); RED BLOOD CELL COUNT 3.98 mill/uL (4.7-6.1); RED CELL DISTRIBUTION WIDTH 16.8 % (11.6-14.6)
[2019-02-26 07:39] LABS: CHLORIDE 105 mEq/L (98-107)
[2019-02-26 08:30] VITALS: BP 112/80
[2019-02-26] MEDS: CARVEDILOL 12.5MG TABLET PO SCH (08:43)
[2019-02-26] MEDS: LOSARTAN POTASSIUM 25 MG TABLET PO SCH (08:43)
[2019-02-26] MEDS: APIXABAN 5 MG TABLET PO SCH (08:44)
[2019-02-26] MEDS: SPIRONOLACTONE 25MG TABLET PO SCH (08:44)
[2019-02-26] MEDS: POTASSIUM CHLORIDE 20MEQ TABLET SR PO SCH (08:45)
[2019-02-26 09:03] VITALS: BP 112/80
[2019-02-26] MEDS ORDERED: POTASSIUM CHLORIDE 20MEQ TABLET SR PO NR ×2 (09:15→09:30)
[2019-02-26 09:31] VITALS: BP 112/80
[2019-02-26 12:11] VITALS: BP 105/74
[2019-02-26 13:00] LABS: PLATELET ESTIMATE NORMAL
== END 2019-02-26 15:20 | disposition home or self-care (01) | DRG 291 ==
LOC: ER 05:37 → 8WST 07:44 → EDBEDREQ 07:47 → ENRESERV 12:02
PROVIDERS: ADMIT Internal Medicine Nephrology; ATTEND Internal Medicine Nephrology
DX: I13.0 Hypertensive heart and chronic kidney disease with heart failure and stage 1 through stage 4 chronic kidney disease, or unspecified chronic kidney disease (principal); I50.43 Acute on chronic combined systolic (congestive) and diastolic (congestive) heart failure; J44.1 Chronic obstructive pulmonary disease with (acute) exacerbation; I42.9 Cardiomyopathy, unspecified; R74.0 Nonspecific elevation of levels of transaminase and lactic acid dehydrogenase [LDH]; I34.0 Nonrheumatic mitral (valve) insufficiency; N18.2 Chronic kidney disease, stage 2 (mild); K80.20 Calculus of gallbladder without cholecystitis without obstruction; E11.22 Type 2 diabetes mellitus with diabetic chronic kidney disease; I48.2 Chronic atrial fibrillation; D64.9 Anemia, unspecified; I27.20 Pulmonary hypertension, unspecified; K59.00 Constipation, unspecified; Z86.711 Personal history of pulmonary embolism; Z95.828 Presence of other vascular implants and grafts; Z95.0 Presence of cardiac pacemaker; Z87.891 Personal history of nicotine dependence; Z86.718 Personal history of other venous thrombosis and embolism; Z86.79 Personal history of other diseases of the circulatory system; Z91.19 Patient's noncompliance with other medical treatment and regimen; Z88.8 Allergy status to other drugs, medicaments and biological substances
CPT/HCPCS: 36415; 36600; 71045; 71275; 80048; 82375; 82805; 83880; 84484; 85379; 93005; 93306; 93970; 94640; 96374; 99285; J1650; J1940; J2930; J7611; J7620; Q9967

== ENCOUNTER 2019-03-10 06:08 | Inpatient (IN) | payer MEDICARE, MEDICAID ==
[~2019-03-10] VITALS: Ht 193 cm; Wt 95.3 kg
[~2019-03-10 06:08] MED LIST changes: +FAMO-135 PO; +FURO40TA5 PO; +LOSA25TA26 PO; +POTA20TA82 MT; +PRED10TA PO
[2019-03-10] MEDS ORDERED: MAGNESIUM 2 G PREMIX 50 ML IV STA (06:16)
[2019-03-10] MEDS ORDERED: METHYLPREDNISOLONE SOD SUCC 125 MG/2 ML VIAL IV STA (06:16)
[2019-03-10] MEDS ORDERED: ALBUTEROL (0.083%) 2.5MG/3ML NEB HHN STA (06:16)
[2019-03-10] MEDS ORDERED: IPRATROPIUM BROMIDE (0.02%) 0.5MG/2.5ML NEB HHN STA (06:16)
[2019-03-10 06:54] LABS: HEMATOCRIT. 37.9 % (42.0-52.0); HEMOGLOBIN. 12.6 g/dL (14.0-18.0); MEAN CORPUSCULAR HEMOGLOBIN 30.4 pg (28.0-32.0); MEAN PLATELET VOLUME 8.9 fl (7.4-10.4); PLATELET 184 x1000/uL (130-400); RED BLOOD CELL COUNT 4.16 mill/uL (4.7-6.1); RED CELL DISTRIBUTION WIDTH 17.7 % (11.6-14.6)
[2019-03-10 07:00] LABS: CHLORIDE 106 mEq/L (98-107)
[2019-03-10] MEDS ORDERED: FUROSEMIDE 20MG/2ML VIAL IVP ONE (07:15)
[2019-03-10 07:41] LABS: NUCLEATED RED BLOOD CELLS 1 /100 WBC; PLATELET ESTIMATE NORMAL
[2019-03-10] MEDS ORDERED: LEVOFLOXACIN 500MG PREMIX 100 ML IV SCH (08:00)
[2019-03-10] MEDS ORDERED: ONDANSETRON HCL 4MG/2ML INJ IV PRN (08:00)
[2019-03-10] MEDS ORDERED: IPRATROPIUM/ALBUTEROL 0.5-3(2.5)MG/3ML NEB INH PRN (08:00)
[2019-03-10] MEDS ORDERED: HYDROMORPHONE HCL/PF 2MG/ML CPJ IV PRN (08:00)
[2019-03-10] MEDS ORDERED: ACETAMINOPHEN 325MG TABLET PO PRN (08:00)
[2019-03-10] MEDS ORDERED: DOCUSATE SODIUM 100MG CAPSULE PO PRN (08:00)
[2019-03-10] MEDS ORDERED: CLONIDINE 0.1MG TABLET PO PRN (08:00)
[2019-03-10] MEDS ORDERED: PREDNISONE 10MG TABLET PO SCH (09:00)
[2019-03-10 12:00] VITALS: BP 134/78
[2019-03-10 12:17] VITALS: BP 134/78
[2019-03-10 12:36] LABS: CLARITY URINE CLEAR (CLEAR); COLOR URINE YELLOW (YELLOW); KETONES URINE NEGATIVE (NEGATIVE); LEUKOCYTE ESTERASE URINE NEGATIVE (NEGATIVE); NITRITE URINE NEGATIVE (NEGATIVE); OCCULT BLOOD URINE NEGATIVE (NEGATIVE); PH URINE 6.5 (4.5-8.0); PROTEIN URINE NEGATIVE (NEGATIVE); SPECIFIC GRAVITY URINE 1.004 (1.005-1.030); UROBILINOGEN URINE 0.2 E.U./dL (0.2-1.0)
[2019-03-10 12:49] LABS: *AMPHETAMINES SCREEN URINE NEGATIVE (NEGATIVE); *BARBITURATES SCREEN URINE NEGATIVE (NEGATIVE); *BENZODIAZEPINES SCREEN URINE NEGATIVE (NEGATIVE); *COCAINE SCREEN URINE PRESUMTIVE POSITIVE (NEGATIVE); METHADONE URINE SCREEN NEGATIVE (NEGATIVE); OPIATES URINE SCREEN NEGATIVE (NEGATIVE)
[2019-03-10 12:50] LABS: CANNABINOID URINE SCREEN NEGATIVE (NEGATIVE); PHENCYCLIDINE URINE SCREEN NEGATIVE (NEGATIVE)
[2019-03-10] MEDS: POTASSIUM CHLORIDE 20MEQ TABLET SR PO SCH (13:18)
[2019-03-10] MEDS: ENOXAPARIN 40MG/0.4ML SYR SUBCUT SCH (13:18)
[2019-03-10] MEDS: PREDNISONE 10MG TABLET PO SCH ×2 (13:19→17:38)
[2019-03-10] MEDS: METOLAZONE 2.5MG TABLET PO SCH (13:19)
[2019-03-10] MEDS: LOSARTAN POTASSIUM 25 MG TABLET PO SCH (13:23)
[2019-03-10] MEDS: LEVOFLOXACIN 500MG PREMIX 100 ML IV SCH (14:45)
[2019-03-10 16:00] VITALS: BP 124/79
[2019-03-10] MEDS: FUROSEMIDE 40MG/4ML VIAL IV SCH (17:36)
[2019-03-10 20:00] VITALS: BP 133/97
[2019-03-10] MEDS: IPRATROPIUM/ALBUTEROL 0.5-3(2.5)MG/3ML NEB HHN SCH (20:50)
[2019-03-10] MEDS: BUDESONIDE 0.5MG/2ML NEB HHN SCH (20:51)
[2019-03-10] MEDS: CARVEDILOL 6.25 MG TABLET PO SCH (21:14)
[2019-03-10] MEDS: FAMOTIDINE 20MG TABLET PO SCH (21:14)
[2019-03-11] VITALS: BP 127/86
[2019-03-11] MEDS: IPRATROPIUM/ALBUTEROL 0.5-3(2.5)MG/3ML NEB HHN SCH ×4 (02:33→21:27)
[2019-03-11 04:00] VITALS: BP 122/83
[2019-03-11 07:11] LABS: HEMATOCRIT. 35.8 % (42.0-52.0); HEMOGLOBIN. 11.7 g/dL (14.0-18.0); MEAN CORPUSCULAR VOLUME 91.3 fL (80.0-94.0); MEAN PLATELET VOLUME 9.9 fl (7.4-10.4); PLATELET 200 x1000/uL (130-400); RED BLOOD CELL COUNT 3.92 mill/uL (4.7-6.1); RED CELL DISTRIBUTION WIDTH 17.6 % (11.6-14.6)
[2019-03-11] MEDS: BUDESONIDE 0.5MG/2ML NEB HHN SCH ×2 (07:30→21:27)
[2019-03-11 07:51] LABS: CHLORIDE 104 mEq/L (98-107)
[2019-03-11 08:00] VITALS: BP 110/72
[2019-03-11 08:10] LABS: HDL CHOLESTEROL 57 mg/dL (40-59)
[2019-03-11 08:12] LABS: LDL CHOLESTEROL 97 mg/dL (5-100)
[2019-03-11] MEDS: LOSARTAN POTASSIUM 25 MG TABLET PO SCH (08:58)
[2019-03-11] MEDS: METOLAZONE 2.5MG TABLET PO SCH (08:58)
[2019-03-11] MEDS: POTASSIUM CHLORIDE 20MEQ TABLET SR PO SCH (08:58)
[2019-03-11] MEDS: PREDNISONE 10MG TABLET PO SCH ×2 (08:58→17:47)
[2019-03-11] MEDS: CARVEDILOL 6.25 MG TABLET PO SCH (08:59)
[2019-03-11] MEDS: ENOXAPARIN 40MG/0.4ML SYR SUBCUT SCH (08:59)
[2019-03-11] MEDS: LEVOFLOXACIN 500MG PREMIX 100 ML IV SCH (11:22)
[2019-03-11] MEDS: FUROSEMIDE 40MG/4ML VIAL IV SCH ×2 (11:29→17:47)
[2019-03-11 11:42] LABS: PLATELET ESTIMATE NORMAL
[2019-03-11 12:00] VITALS: BP 110/71
[2019-03-11 16:00] VITALS: BP 118/79
[2019-03-11 20:00] VITALS: BP 113/69
[2019-03-11] MEDS: FAMOTIDINE 20MG TABLET PO SCH (20:48)
[2019-03-11] MEDS: CARVEDILOL 12.5MG TABLET PO SCH (20:48)
[2019-03-12] VITALS: BP 121/68
[2019-03-12] MEDS: IPRATROPIUM/ALBUTEROL 0.5-3(2.5)MG/3ML NEB HHN SCH ×4 (01:44→21:35)
[2019-03-12 04:00] VITALS: BP 114/76
[2019-03-12 06:25] LABS: HEMATOCRIT. 34.2 % (42.0-52.0); HEMOGLOBIN. 11.5 g/dL (14.0-18.0); MEAN CORPUSCULAR HEMOGLOBIN 30.5 pg (28.0-32.0); MEAN CORPUSCULAR VOLUME 90.3 fL (80.0-94.0); MEAN PLATELET VOLUME 8.8 fl (7.4-10.4); PLATELET 185 x1000/uL (130-400); RED BLOOD CELL COUNT 3.79 mill/uL (4.7-6.1); RED CELL DISTRIBUTION WIDTH 17.5 % (11.6-14.6)
[2019-03-12 06:34] LABS: CHLORIDE 99 mEq/L (98-107)
[2019-03-12 08:00] VITALS: BP 153/60
[2019-03-12] MEDS: BUDESONIDE 0.5MG/2ML NEB HHN SCH ×2 (08:56→21:35)
[2019-03-12] MEDS: METOLAZONE 2.5MG TABLET PO SCH (09:02)
[2019-03-12] MEDS: FUROSEMIDE 40MG/4ML VIAL IV SCH ×2 (09:02→15:53)
[2019-03-12] MEDS: PREDNISONE 10MG TABLET PO SCH ×2 (09:02→16:49)
[2019-03-12] MEDS: CARVEDILOL 12.5MG TABLET PO SCH ×2 (09:03→21:29)
[2019-03-12] MEDS: LOSARTAN POTASSIUM 25 MG TABLET PO SCH (09:03)
[2019-03-12] MEDS: ENOXAPARIN 40MG/0.4ML SYR SUBCUT SCH (09:03)
[2019-03-12] MEDS ORDERED: POTASSIUM CHLORIDE 20MEQ TABLET SR PO SCH (11:15)
[2019-03-12 12:00] VITALS: BP 109/76
[2019-03-12 14:00] LABS: NUCLEATED RED BLOOD CELLS 1 /100 WBC; PLATELET ESTIMATE NORMAL
[2019-03-12] MEDS: LEVOFLOXACIN 500MG PREMIX 100 ML IV SCH (16:50)
[2019-03-12] MEDS ORDERED: MAGNESIUM CITRATE 300ML SOLUTION PO NR (17:00)
[2019-03-12] MEDS ORDERED: APIX5TAB MT (18:11)
[2019-03-12] MEDS ORDERED: CARV3.1242 MT (18:11)
[2019-03-12 20:00] VITALS: BP 115/76
[2019-03-12] MEDS: FAMOTIDINE 20MG TABLET PO SCH (21:29)
[2019-03-12] MEDS ORDERED: ZOLPIDEM TARTRATE 5MG TABLET PO PRN (21:45)
[2019-03-13] VITALS: BP 107/60
[2019-03-13] MEDS: IPRATROPIUM/ALBUTEROL 0.5-3(2.5)MG/3ML NEB HHN SCH ×4 (03:02→21:00)
[2019-03-13 07:58] VITALS: BP 118/86
[2019-03-13] MEDS: BUDESONIDE 0.5MG/2ML NEB HHN SCH (08:45)
[2019-03-13] MEDS: METOLAZONE 2.5MG TABLET PO SCH (09:20)
[2019-03-13] MEDS: CARVEDILOL 12.5MG TABLET PO SCH (09:20)
[2019-03-13] MEDS: LOSARTAN POTASSIUM 50 MG TABLET PO SCH (09:20)
[2019-03-13] MEDS: ENOXAPARIN 40MG/0.4ML SYR SUBCUT SCH (09:21)
[2019-03-13] MEDS: PREDNISONE 10MG TABLET PO SCH ×2 (09:21→19:08)
[2019-03-13 09:48] LABS: BG BASE EXCESS 6.8 mmol/L (-2.0-2.0); BG CARBOXYHEMOGLOBIN 0.5 % (0.5-1.5); BG DEOXYHEMOGLOBIN 5.3 % (0.0-5.0); BG FRACTION INSPIRED OXYGEN 21; BG HCO3 ACT 30.9 mmol/L (22.0-26.0); BG METHEMOGLOBIN 0.2 % (0.0-1.5); BG OXYGEN SATURATION 94.7 % (92.0-98.5); BG PCO2 42.1 mmHg (35.0-45.0); BG PH 7.484 (7.350-7.450); BG PO2 74.8 mmHg (75.0-100.0); BG SAMPLE SITE RIGHT RADIAL; BG TOTAL HEMOGLOBIN 13.9 g/dL (12.0-18.0); BG VENT MODE ROOM AIR
[2019-03-13] MEDS: FUROSEMIDE 40MG/4ML VIAL IV SCH (09:50)
[2019-03-13] MEDS: LEVOFLOXACIN 500MG PREMIX 100 ML IV SCH (10:01)
[2019-03-13 11:26] VITALS: BP 83/54
[2019-03-13 12:54] VITALS: BP 107/71
[2019-03-13 15:37] VITALS: BP 110/68
[2019-03-13 20:00] VITALS: BP 101/62
[2019-03-13] MEDS: CARVEDILOL 6.25 MG TABLET PO SCH (21:00)
[2019-03-13] MEDS: FAMOTIDINE 20MG TABLET PO SCH (21:46)
[2019-03-14] VITALS: BP 108/63
[2019-03-14] MEDS: IPRATROPIUM/ALBUTEROL 0.5-3(2.5)MG/3ML NEB HHN SCH ×2 (02:28→13:24)
[2019-03-14 04:00] VITALS: BP 110/73
[2019-03-14 06:02] LABS: CHLORIDE 94 mEq/L (98-107)
[2019-03-14] MEDS ORDERED: POTASSIUM CHLORIDE 20MEQ TABLET SR PO NR (07:00)
[2019-03-14] MEDS: CARVEDILOL 6.25 MG TABLET PO SCH (08:25)
[2019-03-14] MEDS: LOSARTAN POTASSIUM 50 MG TABLET PO SCH (08:25)
[2019-03-14] MEDS: PREDNISONE 10MG TABLET PO SCH (08:25)
[2019-03-14] MEDS: ENOXAPARIN 40MG/0.4ML SYR SUBCUT SCH (08:29)
[2019-03-14] MEDS ORDERED: FUROSEMIDE 40MG TABLET PO SCH (09:00)
[2019-03-14] MEDS ORDERED: POTASSIUM CHLORIDE 20MEQ TABLET SR PO SCH (09:45)
[2019-03-14] MEDS: LEVOFLOXACIN 500MG PREMIX 100 ML IV SCH (11:31)
[2019-03-14 12:00] VITALS: BP 98/70
== END 2019-03-14 16:45 | disposition home or self-care (01) | DRG 682 ==
LOC: ER 06:08 → 7WST 07:34 → EDBEDREQ 07:38 → ENRESERV 10:57
PROVIDERS: ADMIT Internal Medicine Nephrology; ATTEND Internal Medicine Nephrology
DX: N17.9 Acute kidney failure, unspecified (principal); J96.20 Acute and chronic respiratory failure, unspecified whether with hypoxia or hypercapnia; I50.43 Acute on chronic combined systolic (congestive) and diastolic (congestive) heart failure; I13.0 Hypertensive heart and chronic kidney disease with heart failure and stage 1 through stage 4 chronic kidney disease, or unspecified chronic kidney disease; J68.0 Bronchitis and pneumonitis due to chemicals, gases, fumes and vapors; D68.59 Other primary thrombophilia; I42.9 Cardiomyopathy, unspecified; N18.9 Chronic kidney disease, unspecified; F17.210 Nicotine dependence, cigarettes, uncomplicated; F14.10 Cocaine abuse, uncomplicated; I27.20 Pulmonary hypertension, unspecified; I95.9 Hypotension, unspecified; E11.22 Type 2 diabetes mellitus with diabetic chronic kidney disease; F10.10 Alcohol abuse, uncomplicated; I25.10 Atherosclerotic heart disease of native coronary artery without angina pectoris; I08.3 Combined rheumatic disorders of mitral, aortic and tricuspid valves; R74.0 Nonspecific elevation of levels of transaminase and lactic acid dehydrogenase [LDH]; E87.5 Hyperkalemia; K76.1 Chronic passive congestion of liver; Z79.01 Long term (current) use of anticoagulants; Z79.899 Other long term (current) drug therapy; Z86.718 Personal history of other venous thrombosis and embolism; Z95.828 Presence of other vascular implants and grafts; Z95.810 Presence of automatic (implantable) cardiac defibrillator; Z86.711 Personal history of pulmonary embolism; Z86.79 Personal history of other diseases of the circulatory system; Z88.8 Allergy status to other drugs, medicaments and biological substances; Z91.19 Patient's noncompliance with other medical treatment and regimen
CPT/HCPCS: 36415; 36600; 71045; 80048; 80061; 80305; 82375; 82805; 83735; 83880; 84484; 84550; 93306; 93923; 93970; 94640; 96374; 97161; 97166; 99285; J1170; J1650; J1940; J1956; J2405; J2930; J3475; J7050; J7512; J7611; J7620; J7626

== ENCOUNTER 2019-04-24 11:44 | Inpatient (IN) | payer MEDICARE, MEDICAID ==
[~2019-04-24] VITALS: Ht 193 cm; Wt 89.4 kg
[~2019-04-24 11:44] MED LIST changes: +APIX5TAB MT; +CARV3.1242 MT; -CARV6.2548 PO
[2019-04-24] MEDS ORDERED: IPRATROPIUM BROMIDE (0.02%) 0.5MG/2.5ML NEB HHN STA (12:29)
[2019-04-24] MEDS ORDERED: METHYLPREDNISOLONE SOD SUCC 125 MG/2 ML VIAL IV STA (12:29)
[2019-04-24] MEDS ORDERED: ALBUTEROL (0.083%) 2.5MG/3ML NEB HHN STA (12:29)
[2019-04-24] MEDS ORDERED: MAGNESIUM 2 G PREMIX 50 ML IV ONE (12:30)
[2019-04-24] MEDS ORDERED: ASPIRIN 81MG TABLET PO ONE (12:30)
[2019-04-24] MEDS ORDERED: FUROSEMIDE 40MG/4ML VIAL IV ONE (12:30)
[2019-04-24 12:55] LABS: HEMATOCRIT. 37.2 % (42.0-52.0); HEMOGLOBIN. 12.5 g/dL (14.0-18.0); MEAN CORPUSCULAR HEMOGLOBIN 30.6 pg (28.0-32.0); MEAN CORPUSCULAR VOLUME 91.1 fL (80.0-94.0); MEAN PLATELET VOLUME 8.8 fl (7.4-10.4); PLATELET 263 x1000/uL (130-400); RED BLOOD CELL COUNT 4.09 mill/uL (4.7-6.1); RED CELL DISTRIBUTION WIDTH 17.2 % (11.6-14.6)
[2019-04-24 13:01] LABS: CHLORIDE 109 mEq/L (98-107)
[2019-04-24 13:06] LABS: PARTIAL THROMBOPLASTIN TIME 24.7 sec (23.4-31.0)
[2019-04-24 13:17] LABS: PLATELET ESTIMATE NORMAL
[2019-04-24] MEDS ORDERED: HYDROMORPHONE HCL/PF 2MG/ML CPJ IV PRN (14:30)
[2019-04-24] MEDS ORDERED: DOCUSATE SODIUM 100MG CAPSULE PO PRN (14:30)
[2019-04-24] MEDS ORDERED: CLONIDINE 0.1MG TABLET PO PRN (14:30)
[2019-04-24] MEDS ORDERED: ACETAMINOPHEN 325MG TABLET PO PRN (14:30)
[2019-04-24] MEDS ORDERED: ONDANSETRON HCL 4MG/2ML INJ IV PRN (14:30)
[2019-04-24] MEDS ORDERED: IPRATROPIUM/ALBUTEROL 0.5-3(2.5)MG/3ML NEB HHN PRN (15:45)
[2019-04-24 16:20] VITALS: BP 120/80
[2019-04-24 16:23] VITALS: BP 120/70
[2019-04-24] MEDS: POTASSIUM CHLORIDE 20MEQ TABLET SR PO SCH (17:00)
[2019-04-24] MEDS: ENOXAPARIN 40MG/0.4ML SYR SUBCUT SCH (17:24)
[2019-04-24] MEDS: PREDNISONE 10MG TABLET PO SCH (17:24)
[2019-04-24] MEDS: FUROSEMIDE 40MG/4ML VIAL IV SCH (17:42)
[2019-04-24 20:00] VITALS: BP 117/74
[2019-04-24] MEDS: BUDESONIDE 0.5MG/2ML NEB HHN SCH (20:40)
[2019-04-24] MEDS: IPRATROPIUM/ALBUTEROL 0.5-3(2.5)MG/3ML NEB INH SCH (20:41)
[2019-04-24] MEDS: CARVEDILOL 3.125 MG TABLET PO SCH (21:02)
[2019-04-24] MEDS: FAMOTIDINE 20MG TABLET PO SCH (21:03)
[2019-04-24] MEDS: GUAIFENESIN 600MG ER TABLET PO SCH (21:05)
[2019-04-25] VITALS: BP 103/52
[2019-04-25] MEDS: ZOLPIDEM TARTRATE 5MG TABLET PO PRN ×2 (00:17→21:46)
[2019-04-25] MEDS: IPRATROPIUM/ALBUTEROL 0.5-3(2.5)MG/3ML NEB INH SCH ×4 (02:19→20:44)
[2019-04-25 04:00] VITALS: BP 110/74
[2019-04-25 05:39] LABS: CHLORIDE 108 mEq/L (98-107); HEMATOCRIT. 36.9 % (42.0-52.0); HEMOGLOBIN. 12.1 g/dL (14.0-18.0); MEAN CORPUSCULAR HEMOGLOBIN 30.2 pg (28.0-32.0); MEAN CORPUSCULAR VOLUME 91.6 fL (80.0-94.0); MEAN PLATELET VOLUME 8.2 fl (7.4-10.4); PLATELET 233 x1000/uL (130-400); RED BLOOD CELL COUNT 4.02 mill/uL (4.7-6.1); RED CELL DISTRIBUTION WIDTH 16.5 % (11.6-14.6)
[2019-04-25 05:46] LABS: LDL CHOLESTEROL 88 mg/dL (5-100)
[2019-04-25 05:47] LABS: HDL CHOLESTEROL 74 mg/dL (40-59)
[2019-04-25] MEDS: FUROSEMIDE 40MG/4ML VIAL IV SCH ×2 (06:36→18:14)
[2019-04-25 08:00] VITALS: BP 117/78
[2019-04-25 08:41] LABS: CLARITY URINE CLEAR (CLEAR); COLOR URINE YELLOW (YELLOW); KETONES URINE NEGATIVE (NEGATIVE); LEUKOCYTE ESTERASE URINE NEGATIVE (NEGATIVE); NITRITE URINE NEGATIVE (NEGATIVE); OCCULT BLOOD URINE NEGATIVE (NEGATIVE); PH URINE 5.5 (4.5-8.0); PROTEIN URINE NEGATIVE (NEGATIVE); SPECIFIC GRAVITY URINE 1.017 (1.005-1.030)
[2019-04-25] MEDS: GUAIFENESIN 600MG ER TABLET PO SCH ×2 (08:46→21:40)
[2019-04-25] MEDS: CARVEDILOL 3.125 MG TABLET PO SCH ×2 (08:46→21:40)
[2019-04-25] MEDS: FAMOTIDINE 20MG TABLET PO SCH ×2 (08:46→21:40)
[2019-04-25] MEDS: PREDNISONE 10MG TABLET PO SCH ×2 (08:46→17:38)
[2019-04-25] MEDS: METOLAZONE 5MG TABLET PO SCH (08:47)
[2019-04-25] MEDS: LOSARTAN POTASSIUM 50 MG TABLET PO SCH (08:47)
[2019-04-25 08:55] LABS: *AMPHETAMINES SCREEN URINE NEGATIVE (NEGATIVE); *BARBITURATES SCREEN URINE NEGATIVE (NEGATIVE); *BENZODIAZEPINES SCREEN URINE NEGATIVE (NEGATIVE); *COCAINE SCREEN URINE PRESUMTIVE POSITIVE (NEGATIVE)
[2019-04-25 08:56] LABS: CANNABINOID URINE SCREEN NEGATIVE (NEGATIVE); METHADONE URINE SCREEN NEGATIVE (NEGATIVE); OPIATES URINE SCREEN NEGATIVE (NEGATIVE); PHENCYCLIDINE URINE SCREEN NEGATIVE (NEGATIVE)
[2019-04-25] MEDS: POTASSIUM CHLORIDE 20MEQ TABLET SR PO SCH ×2 (09:00→17:00)
[2019-04-25] MEDS: BUDESONIDE 0.5MG/2ML NEB HHN SCH ×3 (09:45→20:44)
[2019-04-25 12:00] VITALS: BP 120/75
[2019-04-25 12:26] LABS: PLATELET ESTIMATE NORMAL
[2019-04-25 16:00] VITALS: BP 116/70
[2019-04-25] MEDS ORDERED: LORAZEPAM 1MG TABLET PO PRN (16:00)
[2019-04-25] MEDS: ENOXAPARIN 40MG/0.4ML SYR SUBCUT SCH (17:38)
[2019-04-25 20:00] VITALS: BP 146/77
[2019-04-26] VITALS (7 sets, daily range): BP systolic 109–134; BP diastolic 67–81
[2019-04-26] MEDS: IPRATROPIUM/ALBUTEROL 0.5-3(2.5)MG/3ML NEB INH SCH ×3 (01:59→12:28)
[2019-04-26] MEDS: FUROSEMIDE 40MG/4ML VIAL IV SCH ×2 (06:20→17:29)
[2019-04-26] MEDS: BUDESONIDE 0.5MG/2ML NEB HHN SCH (07:24)
[2019-04-26] MEDS ORDERED: CARVEDILOL 6.25 MG TABLET PO SCH (09:30)
[2019-04-26] MEDS: POTASSIUM CHLORIDE 20MEQ TABLET SR PO SCH ×2 (09:43→17:28)
[2019-04-26] MEDS: PREDNISONE 10MG TABLET PO SCH (09:45)
[2019-04-26] MEDS: METOLAZONE 5MG TABLET PO SCH (09:45)
[2019-04-26] MEDS: GUAIFENESIN 600MG ER TABLET PO SCH (09:45)
[2019-04-26] MEDS: FAMOTIDINE 20MG TABLET PO SCH (09:45)
[2019-04-26] MEDS: LOSARTAN POTASSIUM 50 MG TABLET PO SCH (09:45)
[2019-04-26] MEDS: ENOXAPARIN 40MG/0.4ML SYR SUBCUT SCH (17:29)
== END 2019-04-26 20:50 | disposition home or self-care (01) | DRG 189 ==
LOC: ER 11:44 → 8WST 13:17 → ENRESERV 13:28
PROVIDERS: ADMIT Internal Medicine Nephrology; ATTEND Internal Medicine Nephrology
DX: J96.00 Acute respiratory failure, unspecified whether with hypoxia or hypercapnia (principal); I50.43 Acute on chronic combined systolic (congestive) and diastolic (congestive) heart failure; E43 Unspecified severe protein-calorie malnutrition; J44.1 Chronic obstructive pulmonary disease with (acute) exacerbation; I42.9 Cardiomyopathy, unspecified; F14.10 Cocaine abuse, uncomplicated; E11.9 Type 2 diabetes mellitus without complications; F17.210 Nicotine dependence, cigarettes, uncomplicated; I11.0 Hypertensive heart disease with heart failure; I27.20 Pulmonary hypertension, unspecified; Z95.810 Presence of automatic (implantable) cardiac defibrillator; Z91.19 Patient's noncompliance with other medical treatment and regimen; Z90.81 Acquired absence of spleen; Z68.24 Body mass index [BMI] 24.0-24.9, adult; Z79.899 Other long term (current) drug therapy; Z86.711 Personal history of pulmonary embolism; Z86.718 Personal history of other venous thrombosis and embolism; Z95.828 Presence of other vascular implants and grafts; Z86.79 Personal history of other diseases of the circulatory system; Z88.8 Allergy status to other drugs, medicaments and biological substances
CPT/HCPCS: 36415; 71045; 78582; 80061; 80305; 81003; 83605; 83880; 84484; 93005; 93970; 94640; 97161; 97166; 99285; A9558; J1650; J1940; J2930; J3475; J7512; J7620; J7626

== ENCOUNTER 2019-05-11 19:46 | Emergency (ER) | payer MEDICARE, MEDICAID ==
[~2019-05-11] VITALS: Ht 193 cm; Wt 91.0 kg
[2019-05-11 23:00] VITALS: BP 131/86
[2019-05-11] MEDS ORDERED: KETOROLAC 60MG/2ML VIAL IM SCH (23:00)
== END 2019-05-12 01:32 | disposition home or self-care (01) ==
LOC: ER 19:46
DX: M25.552 Pain in left hip (principal); M19.90 Unspecified osteoarthritis, unspecified site; I11.0 Hypertensive heart disease with heart failure; I50.9 Heart failure, unspecified; J44.9 Chronic obstructive pulmonary disease, unspecified; Z95.1 Presence of aortocoronary bypass graft; Z95.0 Presence of cardiac pacemaker; Z88.8 Allergy status to other drugs, medicaments and biological substances
CPT/HCPCS: 73502; 99283

== ENCOUNTER 2019-05-15 11:50 | Emergency (ER) | payer MEDICARE, MEDICAID ==
[~2019-05-15] VITALS: Ht 180.3 cm; Wt 90.0 kg
[2019-05-15] MEDS ORDERED: ALBUTEROL (0.083%) 2.5MG/3ML NEB HHN STA (12:02)
[2019-05-15] MEDS ORDERED: NITROGLYCERIN 0.4MG TABLET SL SL PRN (12:15)
[2019-05-15] MEDS ORDERED: ASPIRIN 81MG TABLET PO ONE (12:15)
[2019-05-15 12:28] LABS: CHLORIDE 107 mEq/L (98-107)
[2019-05-15 12:34] LABS: HEMATOCRIT. 39.3 % (42.0-52.0); HEMOGLOBIN. 12.7 g/dL (14.0-18.0); MEAN CORPUSCULAR HEMOGLOBIN 29.7 pg (28.0-32.0); MEAN CORPUSCULAR VOLUME 92.1 fL (80.0-94.0); MEAN PLATELET VOLUME 8.2 fl (7.4-10.4); PLATELET 228 x1000/uL (130-400); RED BLOOD CELL COUNT 4.27 mill/uL (4.7-6.1); RED CELL DISTRIBUTION WIDTH 16.5 % (11.6-14.6)
[2019-05-15 12:58] LABS: PLATELET ESTIMATE NORMAL
[2019-05-15] MEDS ORDERED: CLONIDINE 0.1MG TABLET PO PRN (13:30)
[2019-05-15] MEDS ORDERED: ONDANSETRON HCL 4MG/2ML INJ IV PRN (13:30)
[2019-05-15] MEDS ORDERED: IPRATROPIUM/ALBUTEROL 0.5-3(2.5)MG/3ML NEB HHN SCH (13:30)
[2019-05-15] MEDS ORDERED: ENOXAPARIN 40MG/0.4ML SYR SUBCUT SCH (13:30)
[2019-05-15] MEDS ORDERED: MAGNESIUM/ALUMINUM HYDROXIDE/SIMETHICONE 30ML UDC PO PRN (13:30)
[2019-05-15] MEDS ORDERED: ACETAMINOPHEN 325MG TABLET PO PRN (13:30)
[2019-05-15 16:13] VITALS: BP 133/77
[2019-05-16] MEDS ORDERED: ASPIRIN 325MG EC TABLET PO SCH (09:00)
== END 2019-05-15 16:15 | disposition left against medical advice (07) ==
LOC: ER 13:18 → EDBEDREQTM 14:10 → CANRESERV 14:39 → ENRESERV 14:39 → CANRESERV 14:44 → ENRESERV 14:44 → CANBEDREQ 16:08 → ER 16:15
DX: R07.89 Other chest pain (principal); I20.0 Unstable angina; J44.9 Chronic obstructive pulmonary disease, unspecified; I11.0 Hypertensive heart disease with heart failure; I50.9 Heart failure, unspecified; Z95.0 Presence of cardiac pacemaker; Z95.1 Presence of aortocoronary bypass graft; Z79.899 Other long term (current) drug therapy; Z88.8 Allergy status to other drugs, medicaments and biological substances
CPT/HCPCS: 36415; 71045; 80053; 83880; 84484; 85025; 93005; 94640; 99284; J7611

== ENCOUNTER 2019-05-24 19:27 | Inpatient (IN) | payer MEDICARE, MEDICAID ==
[~2019-05-24] VITALS: Ht 193 cm; Wt 89.8 kg
[~2019-05-24 19:27] MED LIST changes: -APIX5TAB MT; +APIX5TAB PO; -CARV3.1242 MT; +CARV3.1242 PO; -POTA20TA82 MT; +POTA20TA82 PO
[2019-05-24] MEDS ORDERED: FUROSEMIDE 40MG/4ML VIAL IV ONE (20:30)
[2019-05-24 20:41] LABS: BASOPHILS % 0.9 % (0.0-2.0); EOSINOPHILS % 1.7 % (0.0-5.0); HEMOGLOBIN. 12.6 g/dL (14.0-18.0); LYMPHOCYTES % 23.4 % (20.0-50.0); MEAN CORPUSCULAR HEMOGLOBIN 30.5 pg (28.0-32.0); MEAN CORPUSCULAR VOLUME 92.3 fL (80.0-94.0); MEAN PLATELET VOLUME 7.8 fl (7.4-10.4); MONOCYTES % 11.4 % (2.0-8.0); NEUTROPHILS % 62.6 % (40.0-76.0); PLATELET 288 x1000/uL (130-400); RED BLOOD CELL COUNT 4.12 mill/uL (4.7-6.1)
[2019-05-24 20:45] LABS: CHLORIDE 109 mEq/L (98-107)
[2019-05-24] MEDS ORDERED: DEXAMETHASONE 10 MG/ML VIAL IV ONE (20:45)
[2019-05-24] MEDS ORDERED: DEXAMETHASONE 10 MG/ML VIAL ONE (21:01)
[2019-05-24] MEDS ORDERED: ONDANSETRON HCL 4MG/2ML INJ IV PRN (23:00)
[2019-05-24] MEDS ORDERED: DIPHENHYDRAMINE 50MG/ML VIAL IV PRN (23:00)
[2019-05-24] MEDS ORDERED: ACETAMINOPHEN 325MG TABLET PO PRN (23:00)
[2019-05-24] MEDS ORDERED: NA PHOS,M-B/NA PHOS,DI-BA ENEMA 118ML PR PRN (23:00)
[2019-05-24] MEDS ORDERED: CLONIDINE 0.1MG TABLET PO PRN (23:00)
[2019-05-24] MEDS ORDERED: GUAIFENESIN 200MG/10ML SUGAR FREE UDC PO PRN (23:00)
[2019-05-24 23:33] LABS: PHOSPHORUS 3.6 mg/dL (2.5-4.9)
[2019-05-25] MEDS ORDERED: POTASSIUM CHLORIDE 20MEQ TABLET SR PO SCH (00:54)
[2019-05-25 04:00] VITALS: BP 125/61
[2019-05-25 08:00] VITALS: BP 118/65
[2019-05-25] MEDS: DOCUSATE SODIUM 100MG CAPSULE PO PRN ×2 (08:56→21:11)
[2019-05-25] MEDS: CARVEDILOL 6.25 MG TABLET PO SCH ×2 (08:56→21:00)
[2019-05-25] MEDS: LOSARTAN POTASSIUM 50 MG TABLET PO SCH (08:56)
[2019-05-25] MEDS ORDERED: ENOXAPARIN 30MG/0.3ML SYR SUBCUT SCH (09:00)
[2019-05-25] MEDS ORDERED: ENOXAPARIN 40MG/0.4ML SYR SUBCUT SCH (09:00)
[2019-05-25] MEDS: FUROSEMIDE 40MG/4ML VIAL IVP SCH (09:43)
[2019-05-25] MEDS: FAMOTIDINE 20MG TABLET PO SCH ×2 (10:17→21:11)
[2019-05-25 10:46] LABS: BG BASE EXCESS -3.2 mmol/L (-2.0-2.0); BG DEOXYHEMOGLOBIN 1.8 % (0.0-5.0); BG FRACTION INSPIRED OXYGEN 21; BG METHEMOGLOBIN 0.2 % (0.0-1.5); BG OXYGEN SATURATION 98.2 % (92.0-98.5); BG PCO2 30.8 mmHg (35.0-45.0); BG PO2 111.2 mmHg (75.0-100.0); BG SAMPLE SITE RIGHT RADIAL; BG TOTAL HEMOGLOBIN 13.7 g/dL (12.0-18.0); BG VENT MODE ROOM AIR
[2019-05-25 12:00] VITALS: BP 112/82
[2019-05-25 12:28] LABS: HEMATOCRIT. 38.1 % (42.0-52.0); HEMOGLOBIN. 12.5 g/dL (14.0-18.0); MEAN CORPUSCULAR HEMOGLOBIN 30.5 pg (28.0-32.0); MEAN CORPUSCULAR VOLUME 92.8 fL (80.0-94.0); MEAN PLATELET VOLUME 8.3 fl (7.4-10.4); PLATELET 269 x1000/uL (130-400); RED CELL DISTRIBUTION WIDTH 16.1 % (11.6-14.6)
[2019-05-25 12:43] LABS: CHLORIDE 107 mEq/L (98-107)
[2019-05-25 12:49] LABS: PHOSPHORUS 3.8 mg/dL (2.5-4.9)
[2019-05-25 16:00] VITALS: BP 122/69
[2019-05-25] MEDS: ENOXAPARIN 40MG/0.4ML SYR SUBCUT SCH (18:04)
[2019-05-25 18:41] LABS: *AMPHETAMINES SCREEN URINE NEGATIVE (NEGATIVE); *BARBITURATES SCREEN URINE NEGATIVE (NEGATIVE)
[2019-05-25 18:42] LABS: *BENZODIAZEPINES SCREEN URINE NEGATIVE (NEGATIVE); *COCAINE SCREEN URINE PRESUMTIVE POSITIVE (NEGATIVE); CANNABINOID URINE SCREEN NEGATIVE (NEGATIVE); METHADONE URINE SCREEN NEGATIVE (NEGATIVE); OPIATES URINE SCREEN NEGATIVE (NEGATIVE); PHENCYCLIDINE URINE SCREEN NEGATIVE (NEGATIVE)
[2019-05-25 20:00] VITALS: BP 112/76
[2019-05-25 21:37] LABS: PLATELET ESTIMATE NORMAL
[2019-05-26] VITALS: BP 102/62
[2019-05-26 04:00] VITALS: BP 111/76
[2019-05-26 06:29] LABS: HEMATOCRIT. 34.8 % (42.0-52.0); HEMOGLOBIN. 11.5 g/dL (14.0-18.0); MEAN CORPUSCULAR HEMOGLOBIN 30.4 pg (28.0-32.0); MEAN CORPUSCULAR VOLUME 91.7 fL (80.0-94.0); MEAN PLATELET VOLUME 8.2 fl (7.4-10.4); PLATELET 243 x1000/uL (130-400); RED CELL DISTRIBUTION WIDTH 15.8 % (11.6-14.6)
[2019-05-26] MEDS: IPRATROPIUM/ALBUTEROL 0.5-3(2.5)MG/3ML NEB HHN PRN ×3 (06:37→20:14)
[2019-05-26 06:52] LABS: CHLORIDE 106 mEq/L (98-107)
[2019-05-26 08:00] VITALS: BP 143/71
[2019-05-26] MEDS: FAMOTIDINE 20MG TABLET PO SCH ×2 (09:29→20:24)
[2019-05-26] MEDS: LOSARTAN POTASSIUM 50 MG TABLET PO SCH (09:29)
[2019-05-26] MEDS: CARVEDILOL 6.25 MG TABLET PO SCH ×2 (09:29→20:24)
[2019-05-26] MEDS: FUROSEMIDE 40MG/4ML VIAL IVP SCH (09:42)
[2019-05-26 12:00] VITALS: BP 100/74
[2019-05-26 16:00] VITALS: BP 110/79
[2019-05-26] MEDS: ENOXAPARIN 40MG/0.4ML SYR SUBCUT SCH (17:01)
[2019-05-26 20:00] VITALS: BP 107/63
[2019-05-26] MEDS: ZOLPIDEM TARTRATE 5MG TABLET PO PRN (20:24)
[2019-05-26] MEDS: AMIODARONE HCL 200 MG TABLET PO SCH (20:24)
[2019-05-27] VITALS: BP 110/62
[2019-05-27 04:00] VITALS: BP 109/77
[2019-05-27] MEDS: IPRATROPIUM/ALBUTEROL 0.5-3(2.5)MG/3ML NEB HHN PRN (04:15)
[2019-05-27 07:34] LABS: CHLORIDE 109 mEq/L (98-107)
[2019-05-27 08:00] VITALS: BP 112/75
[2019-05-27 08:09] LABS: HEMATOCRIT. 38.2 % (42.0-52.0); HEMOGLOBIN. 12.5 g/dL (14.0-18.0); MEAN CORPUSCULAR HEMOGLOBIN 30.3 pg (28.0-32.0); MEAN CORPUSCULAR VOLUME 92.7 fL (80.0-94.0); MEAN PLATELET VOLUME 8.5 fl (7.4-10.4); PLATELET 271 x1000/uL (130-400); RED BLOOD CELL COUNT 4.12 mill/uL (4.7-6.1); RED CELL DISTRIBUTION WIDTH 16.1 % (11.6-14.6)
[2019-05-27 08:56] LABS: PLATELET ESTIMATE NORMAL
[2019-05-27] MEDS: AMIODARONE HCL 200 MG TABLET PO SCH ×2 (09:07→22:13)
[2019-05-27] MEDS: LOSARTAN POTASSIUM 50 MG TABLET PO SCH (09:07)
[2019-05-27] MEDS: FAMOTIDINE 20MG TABLET PO SCH ×2 (09:08→21:00)
[2019-05-27] MEDS: CARVEDILOL 6.25 MG TABLET PO SCH ×2 (09:08→21:00)
[2019-05-27] MEDS: FUROSEMIDE 40MG/4ML VIAL IVP SCH (10:16)
[2019-05-27 12:00] VITALS: BP 107/78
[2019-05-27 16:00] VITALS: BP 112/73
[2019-05-27] MEDS: ENOXAPARIN 40MG/0.4ML SYR SUBCUT SCH (17:20)
[2019-05-27] MEDS: ZOLPIDEM TARTRATE 5MG TABLET PO PRN (22:13)
[2019-05-28 00:23] VITALS: BP 116/78
[2019-05-28 04:00] VITALS: BP 112/77
[2019-05-28 08:10] VITALS: BP 109/75
[2019-05-28] MEDS: FAMOTIDINE 20MG TABLET PO SCH (09:02)
[2019-05-28] MEDS: LOSARTAN POTASSIUM 50 MG TABLET PO SCH (09:02)
[2019-05-28] MEDS: AMIODARONE HCL 200 MG TABLET PO SCH (09:02)
[2019-05-28] MEDS: CARVEDILOL 6.25 MG TABLET PO SCH (09:02)
[2019-05-28] MEDS: FUROSEMIDE 40MG/4ML VIAL IVP SCH (09:26)
[2019-05-28 10:46] LABS: PLATELET ESTIMATE NORMAL
[2019-05-28 11:53] LABS: BASOPHILS % 0.7 % (0.0-2.0); EOSINOPHILS % 2.1 % (0.0-5.0); HEMATOCRIT. 40.3 % (42.0-52.0); HEMOGLOBIN. 13.2 g/dL (14.0-18.0); LYMPHOCYTES % 24.3 % (20.0-50.0); MEAN CORPUSCULAR HEMOGLOBIN 30.2 pg (28.0-32.0); MEAN CORPUSCULAR VOLUME 92.4 fL (80.0-94.0); MEAN PLATELET VOLUME 8.1 fl (7.4-10.4); MONOCYTES % 10.5 % (2.0-8.0); NEUTROPHILS % 62.4 % (40.0-76.0); PLATELET 274 x1000/uL (130-400); RED BLOOD CELL COUNT 4.36 mill/uL (4.7-6.1); RED CELL DISTRIBUTION WIDTH 15.7 % (11.6-14.6)
[2019-05-28 12:06] VITALS: BP 116/67
[2019-05-28 12:25] LABS: CHLORIDE 106 mEq/L (98-107)
[2019-05-28] MEDS ORDERED: FUROSEMIDE 20MG/2ML VIAL IVP SCH (13:45)
[2019-05-28 13:49] LABS: BG BASE EXCESS 2.2 mmol/L (-2.0-2.0); BG CARBOXYHEMOGLOBIN 0.9 % (0.5-1.5); BG DEOXYHEMOGLOBIN 4.9 % (0.0-5.0); BG FRACTION INSPIRED OXYGEN 21; BG HCO3 ACT 25.1 mmol/L (22.0-26.0); BG METHEMOGLOBIN 0.4 % (0.0-1.5); BG OXYHEMOGLOBIN 93.8 % (94.0-97.0); BG PH 7.486 (7.350-7.450); BG PO2 72.5 mmHg (75.0-100.0); BG SAMPLE SITE RIGHT BRACHIAL; BG VENT MODE ROOM AIR
[2019-05-28] MEDS: IPRATROPIUM/ALBUTEROL 0.5-3(2.5)MG/3ML NEB HHN PRN (15:49)
[2019-05-28 16:22] VITALS: BP 120/72
[2019-05-28] MEDS: ENOXAPARIN 40MG/0.4ML SYR SUBCUT SCH (16:36)
[2019-05-28 17:44] VITALS: BP 120/72
== END 2019-05-28 19:20 | disposition home or self-care (01) | DRG 190 ==
LOC: ER 19:27 → 7WST 23:32 → EDBEDREQ 05-25 00:12 → EDBEDREQTM 05-25 00:12 → ENRESERV 05-25 02:08
PROVIDERS: ADMIT Internal Medicine Nephrology; ATTEND Internal Medicine Nephrology
DX: J44.1 Chronic obstructive pulmonary disease with (acute) exacerbation (principal); I50.23 Acute on chronic systolic (congestive) heart failure; I47.2 Ventricular tachycardia; I42.9 Cardiomyopathy, unspecified; I11.0 Hypertensive heart disease with heart failure; E83.42 Hypomagnesemia; E87.6 Hypokalemia; D64.9 Anemia, unspecified; I27.20 Pulmonary hypertension, unspecified; I48.91 Unspecified atrial fibrillation; G47.00 Insomnia, unspecified; F17.210 Nicotine dependence, cigarettes, uncomplicated; Z85.038 Personal history of other malignant neoplasm of large intestine; Z86.711 Personal history of pulmonary embolism; Z91.19 Patient's noncompliance with other medical treatment and regimen; Z95.810 Presence of automatic (implantable) cardiac defibrillator; Z88.8 Allergy status to other drugs, medicaments and biological substances; Z79.899 Other long term (current) drug therapy; Z95.1 Presence of aortocoronary bypass graft
CPT/HCPCS: 36415; 36600; 71045; 80048; 80076; 80305; 82375; 82805; 83735; 83880; 84100; 84484; 93005; 93970; 94640; 96374; 96375; 97162; 97165; 99285; J1100; J1650; J1940; J7620

== ENCOUNTER 2019-06-06 12:02 | Inpatient (IN) | payer MEDICARE, MEDICAID ==
[~2019-06-06] VITALS: Ht 193 cm; Wt 93.0 kg
[2019-06-06] MEDS ORDERED: NITROGLYCERIN 0.4MG TABLET SL SL PRN (12:45)
[2019-06-06 12:48] LABS: HEMATOCRIT. 36.7 % (42.0-52.0); HEMOGLOBIN. 12.2 g/dL (14.0-18.0); MEAN CORPUSCULAR HEMOGLOBIN 30.4 pg (28.0-32.0); MEAN CORPUSCULAR VOLUME 91.4 fL (80.0-94.0); MEAN PLATELET VOLUME 8.3 fl (7.4-10.4); PLATELET 242 x1000/uL (130-400); RED BLOOD CELL COUNT 4.02 mill/uL (4.7-6.1); RED CELL DISTRIBUTION WIDTH 15.4 % (11.6-14.6)
[2019-06-06 12:56] LABS: CHLORIDE 105 mEq/L (98-107)
[2019-06-06 13:09] LABS: PLATELET ESTIMATE NORMAL
[2019-06-06] MEDS ORDERED: ACETAMINOPHEN 325MG TABLET PO ONE (14:15)
[2019-06-06] MEDS ORDERED: IPRATROPIUM/ALBUTEROL 0.5-3(2.5)MG/3ML NEB HHN ONE ×2 (14:15→18:00)
[2019-06-06 20:50] VITALS: BP 128/79
[2019-06-06] MEDS ORDERED: CLONIDINE 0.1MG TABLET PO PRN (21:30)
[2019-06-06] MEDS ORDERED: ONDANSETRON HCL 4MG/2ML INJ IV PRN (21:30)
[2019-06-06] MEDS ORDERED: ACETAMINOPHEN 325MG TABLET PO PRN (21:30)
[2019-06-06] MEDS: ZOLPIDEM TARTRATE 5MG TABLET PO PRN (22:22)
[2019-06-06] MEDS: ENOXAPARIN 40MG/0.4ML SYR SUBCUT SCH (22:22)
[2019-06-07] VITALS: BP 107/71
[2019-06-07 01:18] LABS: CREATINE KINASE 50 IU/L (39-308); CREATINE KINASE MB FRACTION < 1.0 ng/mL (0.5-3.6)
[2019-06-07 04:00] VITALS: BP 118/83
[2019-06-07 08:00] VITALS: BP 121/79
[2019-06-07 08:49] LABS: BG BASE EXCESS 0.1 mmol/L (-2.0-2.0); BG DEOXYHEMOGLOBIN 4.3 % (0.0-5.0); BG FRACTION INSPIRED OXYGEN 21; BG HCO3 ACT 23.7 mmol/L (22.0-26.0); BG METHEMOGLOBIN 0.3 % (0.0-1.5); BG OXYGEN SATURATION 95.6 % (92.0-98.5); BG OXYHEMOGLOBIN 94.4 % (94.0-97.0); BG PCO2 35.4 mmHg (35.0-45.0); BG PH 7.444 (7.350-7.450); BG PO2 82.8 mmHg (75.0-100.0); BG SAMPLE SITE RIGHT BRACHIAL; BG TOTAL HEMOGLOBIN 13.4 g/dL (12.0-18.0); BG VENT MODE ROOM AIR
[2019-06-07] MEDS: CARVEDILOL 3.125 MG TABLET PO SCH ×2 (08:52→21:14)
[2019-06-07] MEDS: FUROSEMIDE 40MG/4ML VIAL IVP SCH (08:52)
[2019-06-07] MEDS: LOSARTAN POTASSIUM 25 MG TABLET PO SCH ×2 (08:52→21:13)
[2019-06-07 10:28] LABS: HEMOGLOBIN. 12.5 g/dL (14.0-18.0); MEAN CORPUSCULAR HEMOGLOBIN 30.2 pg (28.0-32.0); MEAN CORPUSCULAR VOLUME 91.7 fL (80.0-94.0); MEAN PLATELET VOLUME 8.6 fl (7.4-10.4); PLATELET 244 x1000/uL (130-400); RED BLOOD CELL COUNT 4.14 mill/uL (4.7-6.1)
[2019-06-07 10:49] LABS: CHLORIDE 107 mEq/L (98-107)
[2019-06-07 11:16] LABS: CREATINE KINASE 53 IU/L (39-308); CREATINE KINASE MB FRACTION < 1.0 ng/mL (0.5-3.6)
[2019-06-07 11:22] LABS: PLATELET ESTIMATE NORMAL
[2019-06-07 12:00] VITALS: BP 118/84
[2019-06-07] MEDS: IPRATROPIUM/ALBUTEROL 0.5-3(2.5)MG/3ML NEB HHN PRN ×2 (13:31→23:39)
[2019-06-07 15:58] VITALS: BP 117/77
[2019-06-07] MEDS ORDERED: LACTULOSE 20G/30ML UDC PO NR (18:30)
[2019-06-07] MEDS ORDERED: ZOLPIDEM TARTRATE 5MG TABLET PO PRN (18:30)
[2019-06-07 20:00] VITALS: BP 131/77
[2019-06-07] MEDS: ENOXAPARIN 40MG/0.4ML SYR SUBCUT SCH (21:12)
[2019-06-07] MEDS: ZOLPIDEM TARTRATE 5MG TABLET PO PRN (23:30)
[2019-06-08] VITALS: BP 112/72
[2019-06-08 04:00] VITALS: BP 110/63
[2019-06-08 08:00] VITALS: BP 105/81
[2019-06-08] MEDS: CARVEDILOL 3.125 MG TABLET PO SCH (09:00)
[2019-06-08] MEDS: LOSARTAN POTASSIUM 25 MG TABLET PO SCH (09:00)
[2019-06-08] MEDS: FUROSEMIDE 40MG/4ML VIAL IVP SCH (09:45)
== END 2019-06-08 10:51 | disposition left against medical advice (07) | DRG 291 ==
LOC: ER 12:02 → 8WST 16:54 → EDBEDREQ 17:05 → ENRESERV 20:22
PROVIDERS: ADMIT Internal Medicine Nephrology; ATTEND Internal Medicine Nephrology
DX: I13.0 Hypertensive heart and chronic kidney disease with heart failure and stage 1 through stage 4 chronic kidney disease, or unspecified chronic kidney disease (principal); I50.23 Acute on chronic systolic (congestive) heart failure; I24.9 Acute ischemic heart disease, unspecified; E44.0 Moderate protein-calorie malnutrition; I42.9 Cardiomyopathy, unspecified; I50.9 Heart failure, unspecified; J44.9 Chronic obstructive pulmonary disease, unspecified; I48.91 Unspecified atrial fibrillation; I25.10 Atherosclerotic heart disease of native coronary artery without angina pectoris; F14.10 Cocaine abuse, uncomplicated; Z53.29 Procedure and treatment not carried out because of patient's decision for other reasons; N18.2 Chronic kidney disease, stage 2 (mild); Z91.19 Patient's noncompliance with other medical treatment and regimen; Z87.891 Personal history of nicotine dependence; Z95.810 Presence of automatic (implantable) cardiac defibrillator; Z86.718 Personal history of other venous thrombosis and embolism; Z86.711 Personal history of pulmonary embolism; Z95.1 Presence of aortocoronary bypass graft; Z79.899 Other long term (current) drug therapy; Z68.25 Body mass index [BMI] 25.0-25.9, adult
CPT/HCPCS: 36415; 36600; 71045; 80048; 82375; 82550; 82553; 82805; 83880; 84484; 93005; 93970; 94640; 99285; J1650; J1940; J7040; J7620

== ENCOUNTER 2019-06-10 04:39 | Inpatient (IN) | payer MEDICARE, MEDICAID ==
[~2019-06-10] VITALS: Ht 182.9 cm; Wt 93.9 kg
[2019-06-10] MEDS ORDERED: ASPIRIN 325MG EC TABLET PO ONE (06:45)
[2019-06-10 07:32] LABS: CHLORIDE 108 mEq/L (98-107)
[2019-06-10 07:38] LABS: HEMATOCRIT. 37.5 % (42.0-52.0); HEMOGLOBIN. 12.4 g/dL (14.0-18.0); MEAN CORPUSCULAR HEMOGLOBIN 30.4 pg (28.0-32.0); MEAN CORPUSCULAR VOLUME 92.2 fL (80.0-94.0); MEAN PLATELET VOLUME 8.7 fl (7.4-10.4); PLATELET 229 x1000/uL (130-400); RED BLOOD CELL COUNT 4.07 mill/uL (4.7-6.1); RED CELL DISTRIBUTION WIDTH 15.8 % (11.6-14.6)
[2019-06-10 08:11] LABS: NUCLEATED RED BLOOD CELLS 1 /100 WBC
[2019-06-10 08:13] LABS: PLATELET ESTIMATE NORMAL
[2019-06-10 10:00] VITALS: BP 113/81
[2019-06-10] MEDS ORDERED: CLONIDINE 0.1MG TABLET PO PRN (11:00)
[2019-06-10] MEDS ORDERED: DIPHENHYDRAMINE 50MG/ML VIAL IV PRN (11:00)
[2019-06-10] MEDS ORDERED: ONDANSETRON HCL 4MG/2ML INJ IV PRN (11:00)
[2019-06-10] MEDS ORDERED: GUAIFENESIN 200MG/10ML SUGAR FREE UDC PO PRN (11:00)
[2019-06-10] MEDS ORDERED: MAGNESIUM/ALUMINUM HYDROXIDE/SIMETHICONE 30ML UDC PO PRN (11:00)
[2019-06-10] MEDS ORDERED: ACETAMINOPHEN 325MG TABLET PO PRN (11:00)
[2019-06-10 11:43] VITALS: BP 112/84
[2019-06-10] MEDS ORDERED: SODIUM POLYSTYRENE SULFONATE 15 G/60 ML BOT PO NR (12:30)
[2019-06-10] MEDS: IPRATROPIUM/ALBUTEROL 0.5-3(2.5)MG/3ML NEB HHN PRN (13:17)
[2019-06-10] MEDS: FUROSEMIDE 40MG/4ML VIAL IVP SCH (13:19)
[2019-06-10] MEDS: ENOXAPARIN 40MG/0.4ML SYR SUBCUT SCH (13:19)
[2019-06-10 16:09] VITALS: BP 106/73
[2019-06-10] MEDS: METHYLPREDNISOLONE SOD SUCC 40 MG/ML VIAL IV SCH (17:04)
[2019-06-10 20:00] VITALS: BP 114/74
[2019-06-10] MEDS: FAMOTIDINE 20MG TABLET PO SCH (20:21)
[2019-06-10] MEDS: CARVEDILOL 3.125 MG TABLET PO SCH (20:22)
[2019-06-10] MEDS: ZOLPIDEM TARTRATE 5MG TABLET PO PRN (20:22)
[2019-06-11] VITALS: BP 112/71
[2019-06-11] MEDS: METHYLPREDNISOLONE SOD SUCC 40 MG/ML VIAL IV SCH ×3 (00:02→16:07)
[2019-06-11 04:00] VITALS: BP 110/73
[2019-06-11 07:03] LABS: BASOPHILS % 0.6 % (0.0-2.0); EOSINOPHILS % 0.3 % (0.0-5.0); HEMATOCRIT. 38.6 % (42.0-52.0); HEMOGLOBIN. 12.6 g/dL (14.0-18.0); LYMPHOCYTES % 9.5 % (20.0-50.0); MEAN CORPUSCULAR HEMOGLOBIN 29.6 pg (28.0-32.0); MEAN PLATELET VOLUME 8.6 fl (7.4-10.4); MONOCYTES % 2.8 % (2.0-8.0); NEUTROPHILS % 86.8 % (40.0-76.0); PLATELET 230 x1000/uL (130-400); RED BLOOD CELL COUNT 4.24 mill/uL (4.7-6.1); RED CELL DISTRIBUTION WIDTH 15.7 % (11.6-14.6)
[2019-06-11 07:05] LABS: *AMPHETAMINES SCREEN URINE NEGATIVE (NEGATIVE); *BARBITURATES SCREEN URINE NEGATIVE (NEGATIVE); *BENZODIAZEPINES SCREEN URINE NEGATIVE (NEGATIVE); *COCAINE SCREEN URINE PRESUMTIVE POSITIVE (NEGATIVE)
[2019-06-11 07:06] LABS: CANNABINOID URINE SCREEN NEGATIVE (NEGATIVE); METHADONE URINE SCREEN NEGATIVE (NEGATIVE); OPIATES URINE SCREEN NEGATIVE (NEGATIVE); PHENCYCLIDINE URINE SCREEN NEGATIVE (NEGATIVE)
[2019-06-11 07:15] LABS: CHLORIDE 107 mEq/L (98-107)
[2019-06-11 08:00] VITALS: BP 122/70
[2019-06-11] MEDS: CARVEDILOL 3.125 MG TABLET PO SCH ×2 (08:38→20:37)
[2019-06-11] MEDS: ENOXAPARIN 40MG/0.4ML SYR SUBCUT SCH (08:38)
[2019-06-11] MEDS: FUROSEMIDE 40MG/4ML VIAL IVP SCH (08:38)
[2019-06-11 11:34] LABS: BG BASE EXCESS -0.3 mmol/L (-2.0-2.0); BG CARBOXYHEMOGLOBIN 0.7 % (0.5-1.5); BG DEOXYHEMOGLOBIN 3.5 % (0.0-5.0); BG FRACTION INSPIRED OXYGEN 21; BG HCO3 ACT 23.3 mmol/L (22.0-26.0); BG METHEMOGLOBIN 0.3 % (0.0-1.5); BG OXYGEN SATURATION 96.5 % (92.0-98.5); BG OXYHEMOGLOBIN 95.5 % (94.0-97.0); BG PH 7.442 (7.350-7.450); BG PO2 81.9 mmHg (75.0-100.0); BG SAMPLE SITE RIGHT RADIAL; BG TOTAL HEMOGLOBIN 13.4 g/dL (12.0-18.0); BG VENT MODE ROOM AIR
[2019-06-11 12:00] VITALS: BP 117/65
[2019-06-11 16:00] VITALS: BP 116/70
[2019-06-11 20:00] VITALS: BP 112/67
[2019-06-11] MEDS: ZOLPIDEM TARTRATE 5MG TABLET PO PRN (20:37)
[2019-06-11] MEDS: FAMOTIDINE 20MG TABLET PO SCH (20:38)
[2019-06-12] VITALS (7 sets, daily range): BP systolic 85–134; BP diastolic 66–86
[2019-06-12] MEDS: METHYLPREDNISOLONE SOD SUCC 40 MG/ML VIAL IV SCH ×4 (00:08→17:55)
[2019-06-12 07:32] LABS: CHLORIDE 104 mEq/L (98-107)
[2019-06-12 07:33] LABS: BASOPHILS % 0.2 % (0.0-2.0); HEMATOCRIT. 37.4 % (42.0-52.0); HEMOGLOBIN. 12.3 g/dL (14.0-18.0); LYMPHOCYTES % 13.6 % (20.0-50.0); MEAN CORPUSCULAR HEMOGLOBIN 29.8 pg (28.0-32.0); MEAN CORPUSCULAR VOLUME 90.6 fL (80.0-94.0); MEAN PLATELET VOLUME 8.7 fl (7.4-10.4); MONOCYTES % 2.9 % (2.0-8.0); NEUTROPHILS % 83.3 % (40.0-76.0); PLATELET 226 x1000/uL (130-400); RED BLOOD CELL COUNT 4.13 mill/uL (4.7-6.1); RED CELL DISTRIBUTION WIDTH 15.7 % (11.6-14.6)
[2019-06-12] MEDS: CARVEDILOL 3.125 MG TABLET PO SCH ×2 (09:00→20:35)
[2019-06-12] MEDS: FUROSEMIDE 40MG/4ML VIAL IVP SCH (09:00)
[2019-06-12] MEDS: ENOXAPARIN 40MG/0.4ML SYR SUBCUT SCH (10:13)
[2019-06-12] MEDS ORDERED: POTASSIUM CHLORIDE 20MEQ TABLET SR PO SCH (10:30)
[2019-06-12] MEDS ORDERED: POTASSIUM CHLORIDE 20MEQ/PACKET PO NR (11:45)
[2019-06-12] MEDS: IPRATROPIUM/ALBUTEROL 0.5-3(2.5)MG/3ML NEB HHN PRN (16:00)
[2019-06-12] MEDS: FAMOTIDINE 20MG TABLET PO SCH (20:35)
[2019-06-12] MEDS: ZOLPIDEM TARTRATE 5MG TABLET PO PRN (20:42)
[2019-06-13] VITALS: BP 114/75
[2019-06-13] MEDS: METHYLPREDNISOLONE SOD SUCC 40 MG/ML VIAL IV SCH
[2019-06-13 04:00] VITALS: BP 110/74
[2019-06-13] MEDS: IPRATROPIUM/ALBUTEROL 0.5-3(2.5)MG/3ML NEB HHN PRN (04:00)
[2019-06-13 08:00] VITALS: BP 93/66
[2019-06-13] MEDS: CARVEDILOL 3.125 MG TABLET PO SCH ×2 (09:00→10:17)
[2019-06-13] MEDS: ENOXAPARIN 40MG/0.4ML SYR SUBCUT SCH (09:00)
[2019-06-13] MEDS ORDERED: FUROSEMIDE 40MG TABLET PO SCH (09:30)
[2019-06-13 10:10] VITALS: BP 143/117
[2019-06-13 10:52] VITALS: BP 93/66
[2019-06-13 13:38] VITALS: BP 134/81
== END 2019-06-13 13:50 | DRG 313 ==
LOC: ER 04:39 → 7WST 08:34 → EDBEDREQ 08:36 → EDBEDREQTM 08:36 → ENRESERV 08:54
PROVIDERS: ADMIT Internal Medicine Nephrology; ATTEND Internal Medicine Nephrology
DX: R07.89 Other chest pain (principal); E44.0 Moderate protein-calorie malnutrition; I50.20 Unspecified systolic (congestive) heart failure; I42.9 Cardiomyopathy, unspecified; I11.0 Hypertensive heart disease with heart failure; J44.9 Chronic obstructive pulmonary disease, unspecified; D64.9 Anemia, unspecified; E87.5 Hyperkalemia; F14.10 Cocaine abuse, uncomplicated; I25.10 Atherosclerotic heart disease of native coronary artery without angina pectoris; I27.20 Pulmonary hypertension, unspecified; E78.00 Pure hypercholesterolemia, unspecified; Z86.718 Personal history of other venous thrombosis and embolism; Z95.0 Presence of cardiac pacemaker; Z86.711 Personal history of pulmonary embolism; Z95.828 Presence of other vascular implants and grafts; Z59.0 Homelessness; Z79.899 Other long term (current) drug therapy; Z91.19 Patient's noncompliance with other medical treatment and regimen; Z68.28 Body mass index [BMI] 28.0-28.9, adult; Z88.8 Allergy status to other drugs, medicaments and biological substances
CPT/HCPCS: 36415; 36600; 71045; 80048; 80305; 82375; 82805; 83880; 84484; 87070; 93005; 93306; 93970; 94640; 99285; J1650; J1940; J2920; J7620

== ENCOUNTER 2019-07-07 12:27 | Inpatient (IN) | payer MEDICARE, MEDICAID ==
[~2019-07-07] VITALS: Ht 193 cm; Wt 95.3 kg
[2019-07-07 17:36] LABS: HEMATOCRIT. 39.6 % (42.0-52.0); HEMOGLOBIN. 13.2 g/dL (14.0-18.0); MEAN CORPUSCULAR HEMOGLOBIN 30.3 pg (28.0-32.0); MEAN CORPUSCULAR VOLUME 90.9 fL (80.0-94.0); MEAN PLATELET VOLUME 9.4 fl (7.4-10.4); PLATELET 204 x1000/uL (130-400); RED BLOOD CELL COUNT 4.36 mill/uL (4.7-6.1); RED CELL DISTRIBUTION WIDTH 15.9 % (11.6-14.6)
[2019-07-07 17:40] LABS: CHLORIDE 105 mEq/L (98-107)
[2019-07-07] MEDS ORDERED: IPRATROPIUM/ALBUTEROL 0.5-3(2.5)MG/3ML NEB HHN ONE (18:15)
[2019-07-07 18:19] LABS: CLARITY URINE CLEAR (CLEAR); COLOR URINE YELLOW (YELLOW); KETONES URINE NEGATIVE (NEGATIVE); LEUKOCYTE ESTERASE URINE NEGATIVE (NEGATIVE); NITRITE URINE NEGATIVE (NEGATIVE); OCCULT BLOOD URINE NEGATIVE (NEGATIVE); PROTEIN URINE NEGATIVE (NEGATIVE); SPECIFIC GRAVITY URINE 1.005 (1.005-1.030)
[2019-07-07 18:29] LABS: *COCAINE SCREEN URINE NEGATIVE (NEGATIVE)
[2019-07-07 18:30] LABS: *BARBITURATES SCREEN URINE NEGATIVE (NEGATIVE); CANNABINOID URINE SCREEN NEGATIVE (NEGATIVE); METHADONE URINE SCREEN NEGATIVE (NEGATIVE); OPIATES URINE SCREEN NEGATIVE (NEGATIVE); PHENCYCLIDINE URINE SCREEN NEGATIVE (NEGATIVE)
[2019-07-07 18:31] LABS: *AMPHETAMINES SCREEN URINE NEGATIVE (NEGATIVE); *BENZODIAZEPINES SCREEN URINE NEGATIVE (NEGATIVE)
[2019-07-07 19:43] LABS: ATYPICAL LYMPHOCYTES 3; PLATELET ESTIMATE NORMAL
[2019-07-07] MEDS ORDERED: ACETAMINOPHEN 325MG TABLET PO PRN (19:45)
[2019-07-07] MEDS ORDERED: ONDANSETRON HCL 4MG/2ML INJ IV PRN (19:45)
[2019-07-07] MEDS ORDERED: HYDROCODONE/ACETAMINOPHEN 5/325MG TABLET PO PRN (19:45)
[2019-07-07] MEDS ORDERED: CLONIDINE 0.1MG TABLET PO PRN (19:45)
[2019-07-07 23:18] VITALS: BP 128/88
[2019-07-08] VITALS: BP 126/88
[2019-07-08] MEDS: CARVEDILOL 3.125 MG TABLET PO SCH ×2 (00:11→10:00)
[2019-07-08] MEDS: FUROSEMIDE 40MG/4ML VIAL IVP SCH ×2 (00:11→10:01)
[2019-07-08] MEDS ORDERED: LEVOFLOXACIN 500MG PREMIX 100 ML IV NR (01:00)
[2019-07-08] MEDS: LORAZEPAM 1MG TABLET PO PRN ×2 (01:53→16:26)
[2019-07-08] MEDS ORDERED: DOCU-150 PO (02:02)
[2019-07-08] MEDS ORDERED: OMEP40CA34 PO (02:02)
[2019-07-08] MEDS ORDERED: POTASSIUM CHLORIDE 20MEQ TABLET SR PO SCH ×2 (02:45→11:30)
[2019-07-08 04:00] VITALS: BP 97/60
[2019-07-08] MEDS: IPRATROPIUM/ALBUTEROL 0.5-3(2.5)MG/3ML NEB NEB PRN ×2 (05:53→12:50)
[2019-07-08 06:06] LABS: CHLORIDE 107 mEq/L (98-107)
[2019-07-08 07:15] LABS: BASOPHILS % 0.6 % (0.0-2.0); EOSINOPHILS % 5.5 % (0.0-5.0); HEMATOCRIT. 36.7 % (42.0-52.0); HEMOGLOBIN. 11.9 g/dL (14.0-18.0); LYMPHOCYTES % 20.8 % (20.0-50.0); MEAN CORPUSCULAR HEMOGLOBIN 29.2 pg (28.0-32.0); MEAN CORPUSCULAR VOLUME 90.2 fL (80.0-94.0); MEAN PLATELET VOLUME 9.5 fl (7.4-10.4); MONOCYTES % 13.4 % (2.0-8.0); NEUTROPHILS % 59.7 % (40.0-76.0); PLATELET 184 x1000/uL (130-400); RED BLOOD CELL COUNT 4.06 mill/uL (4.7-6.1); RED CELL DISTRIBUTION WIDTH 16.2 % (11.6-14.6)
[2019-07-08 08:00] VITALS: BP 126/77
[2019-07-08] MEDS ORDERED: ENOXAPARIN 40MG/0.4ML SYR SUBCUT SCH (09:00)
[2019-07-08] MEDS ORDERED: FUROSEMIDE 40MG/4ML VIAL IVP SCH (11:30)
[2019-07-08 12:00] VITALS: BP 125/69
[2019-07-08] MEDS: POTASSIUM CHLORIDE 20MEQ/PACKET PO SCH (13:15)
[2019-07-08 13:17] LABS: INR 1.2; PROTHROMBIN TIME 12.1 sec (9.6-11.0)
[2019-07-08] MEDS ORDERED: ENOXAPARIN 60MG/0.6ML SYR SUBCUT SCH (13:30)
[2019-07-08 16:16] VITALS: BP 124/68
[2019-07-08] MEDS: IPRATROPIUM/ALBUTEROL 0.5-3(2.5)MG/3ML NEB HHN SCH ×2 (16:54→20:37)
[2019-07-08 20:06] VITALS: BP 117/67
[2019-07-08] MEDS: CARVEDILOL 6.25 MG TABLET PO SCH (21:02)
[2019-07-08] MEDS: FAMOTIDINE 20MG TABLET PO SCH (21:02)
[2019-07-08] MEDS ORDERED: LEVOFLOXACIN 250MG PREMIX 50 ML IV SCH (23:00)
[2019-07-08] MEDS: ENOXAPARIN 100MG/ML SYR SUBCUT SCH (23:41)
[2019-07-09] VITALS: BP 103/74
[2019-07-09] MEDS: IPRATROPIUM/ALBUTEROL 0.5-3(2.5)MG/3ML NEB HHN SCH ×6 (00:33→20:57)
[2019-07-09] MEDS: LEVOFLOXACIN 250MG PREMIX 50 ML IV SCH ×2 (00:57→20:50)
[2019-07-09 04:00] VITALS: BP 107/78
[2019-07-09 06:56] LABS: CHLORIDE 106 mEq/L (98-107)
[2019-07-09 07:01] LABS: HEMATOCRIT. 35.9 % (42.0-52.0); HEMOGLOBIN. 11.8 g/dL (14.0-18.0); MEAN CORPUSCULAR HEMOGLOBIN 29.4 pg (28.0-32.0); MEAN CORPUSCULAR VOLUME 89.7 fL (80.0-94.0); MEAN PLATELET VOLUME 9.5 fl (7.4-10.4); PLATELET 188 x1000/uL (130-400); RED BLOOD CELL COUNT 4.01 mill/uL (4.7-6.1); RED CELL DISTRIBUTION WIDTH 16.1 % (11.6-14.6)
[2019-07-09 08:00] VITALS: BP 116/81
[2019-07-09] MEDS ORDERED: FUROSEMIDE 40MG/4ML VIAL IVP SCH (09:00)
[2019-07-09] MEDS: ENOXAPARIN 100MG/ML SYR SUBCUT SCH ×3 (09:00→21:00)
[2019-07-09] MEDS: CARVEDILOL 6.25 MG TABLET PO SCH ×2 (09:04→20:50)
[2019-07-09] MEDS: POTASSIUM CHLORIDE 20MEQ/PACKET PO SCH (09:06)
[2019-07-09 09:26] LABS: PLATELET ESTIMATE NORMAL
[2019-07-09 12:00] VITALS: BP 109/61
[2019-07-09 16:00] VITALS: BP 91/71
[2019-07-09] MEDS: LORAZEPAM 1MG TABLET PO PRN (18:19)
[2019-07-09] MEDS: FUROSEMIDE 40MG/4ML VIAL IVP SCH (18:19)
[2019-07-09] MEDS: POTASSIUM CHLORIDE 20MEQ TABLET SR PO SCH (18:20)
[2019-07-09 20:00] VITALS: BP 124/68
[2019-07-09] MEDS: FAMOTIDINE 20MG TABLET PO SCH (20:49)
[2019-07-09] MEDS: GUAIFENESIN 600MG ER TABLET PO SCH (20:50)
[2019-07-09] MEDS: BUDESONIDE 0.5MG/2ML NEB HHN SCH (20:56)
[2019-07-10] VITALS (7 sets, daily range): BP systolic 102–122; BP diastolic 66–83
[2019-07-10] MEDS: IPRATROPIUM/ALBUTEROL 0.5-3(2.5)MG/3ML NEB HHN SCH ×5 (00:50→17:33)
[2019-07-10 06:30] LABS: HEMATOCRIT. 35.8 % (42.0-52.0); HEMOGLOBIN. 11.7 g/dL (14.0-18.0); MEAN CORPUSCULAR HEMOGLOBIN 29.5 pg (28.0-32.0); MEAN CORPUSCULAR VOLUME 90.1 fL (80.0-94.0); MEAN PLATELET VOLUME 9.3 fl (7.4-10.4); PLATELET 186 x1000/uL (130-400); RED BLOOD CELL COUNT 3.98 mill/uL (4.7-6.1); RED CELL DISTRIBUTION WIDTH 15.8 % (11.6-14.6)
[2019-07-10 06:48] LABS: CHLORIDE 107 mEq/L (98-107)
[2019-07-10] MEDS: POTASSIUM CHLORIDE 20MEQ TABLET SR PO SCH ×2 (09:17→18:01)
[2019-07-10] MEDS: GUAIFENESIN 600MG ER TABLET PO SCH ×2 (09:17→20:52)
[2019-07-10] MEDS: ENOXAPARIN 100MG/ML SYR SUBCUT SCH ×2 (09:19→20:53)
[2019-07-10] MEDS: CARVEDILOL 6.25 MG TABLET PO SCH ×2 (09:20→20:52)
[2019-07-10] MEDS: FUROSEMIDE 40MG/4ML VIAL IVP SCH (09:21)
[2019-07-10] MEDS: BUDESONIDE 0.5MG/2ML NEB HHN SCH ×2 (09:56→17:33)
[2019-07-10] MEDS ORDERED: POTASSIUM CHLORIDE 20MEQ/PACKET PO SCH (11:00)
[2019-07-10 15:17] LABS: PLATELET ESTIMATE NORMAL
[2019-07-10] MEDS ORDERED: FUROSEMIDE 40MG TABLET PO SCH (18:00)
[2019-07-10] MEDS: FAMOTIDINE 20MG TABLET PO SCH (20:52)
== END 2019-07-10 21:30 | DRG 682 ==
LOC: ER 13:28 → 7WST 20:24 → EDBEDREQ 20:28 → ENRESERV 22:03
PROVIDERS: ADMIT Internal Medicine Nephrology; ATTEND Internal Medicine Nephrology
PROC: 4B02XTZ Measurement of Cardiac Defibrillator, External Approach (ICD-10-PCS; principal; 2019-07-09)
DX: N17.9 Acute kidney failure, unspecified (principal); J96.01 Acute respiratory failure with hypoxia; I50.43 Acute on chronic combined systolic (congestive) and diastolic (congestive) heart failure; J44.1 Chronic obstructive pulmonary disease with (acute) exacerbation; I16.9 Hypertensive crisis, unspecified; I48.20 Chronic atrial fibrillation, unspecified; I42.9 Cardiomyopathy, unspecified; I42.0 Dilated cardiomyopathy; J44.0 Chronic obstructive pulmonary disease with (acute) lower respiratory infection; I11.0 Hypertensive heart disease with heart failure; E78.5 Hyperlipidemia, unspecified; F14.10 Cocaine abuse, uncomplicated; I27.20 Pulmonary hypertension, unspecified; J20.9 Acute bronchitis, unspecified; E87.6 Hypokalemia; K56.41 Fecal impaction; F41.9 Anxiety disorder, unspecified; K21.9 Gastro-esophageal reflux disease without esophagitis; I25.10 Atherosclerotic heart disease of native coronary artery without angina pectoris; Z59.0 Homelessness; Z86.711 Personal history of pulmonary embolism; Z86.718 Personal history of other venous thrombosis and embolism; Z95.810 Presence of automatic (implantable) cardiac defibrillator; Z79.899 Other long term (current) drug therapy; Z86.79 Personal history of other diseases of the circulatory system; Z91.14 Patient's other noncompliance with medication regimen; Z95.828 Presence of other vascular implants and grafts; Z88.8 Allergy status to other drugs, medicaments and biological substances
CPT/HCPCS: 36415; 71045; 71250; 80048; 80305; 81003; 83735; 83880; 84484; 93005; 94640; 97162; 99285; J1650; J1940; J1956; J7620; J7626

== ENCOUNTER 2019-08-23 09:04 | Inpatient (IN) | payer MEDICARE, MEDICAID ==
[~2019-08-23] VITALS: Ht 182.9 cm; Wt 81.6 kg
[~2019-08-23 09:04] MED LIST changes: +DOCU-150 PO; -FAMO-135 PO; -LOSA25TA26 PO; +OMEP40CA34 PO; -POTA20TA82 PO; -PRED10TA PO; +SULF1TAB48 MT
[2019-08-23] MEDS ORDERED: FUROSEMIDE 40MG/4ML VIAL IV ONE (11:30)
[2019-08-23] MEDS ORDERED: NITROGLYCERIN OINT 1GM/INCH UDPKT TD ONE (11:30)
[2019-08-23 13:05] LABS: HEMATOCRIT. 44.2 % (42.0-52.0); HEMOGLOBIN. 14.5 g/dL (14.0-18.0); MEAN CORPUSCULAR HEMOGLOBIN 27.5 pg (28.0-32.0); MEAN CORPUSCULAR VOLUME 83.9 fL (80.0-94.0); MEAN PLATELET VOLUME 7.9 fl (7.4-10.4); PLATELET 313 x1000/uL (130-400); RED BLOOD CELL COUNT 5.27 mill/uL (4.7-6.1); RED CELL DISTRIBUTION WIDTH 17.8 % (11.6-14.6)
[2019-08-23 13:11] LABS: CHLORIDE 94 mEq/L (98-107)
[2019-08-23 13:12] LABS: INR 1.2
[2019-08-23 13:29] LABS: PLATELET ESTIMATE NORMAL
[2019-08-23] MEDS ORDERED: POTASSIUM CHLORIDE 20MEQ TABLET SR PO ONE (13:45)
[2019-08-23] MEDS ORDERED: ASPIRIN 325MG EC TABLET PO ONE (13:45)
[2019-08-23] MEDS ORDERED: KCL 10MEQ/50ML PREMIX 50 ML IV ONE (13:45)
[2019-08-23] MEDS ORDERED: ACETAMINOPHEN 325MG TABLET PO PRN (14:00)
[2019-08-23] MEDS ORDERED: DOCUSATE SODIUM 100MG CAPSULE PO PRN (14:00)
[2019-08-23] MEDS ORDERED: CLONIDINE 0.1MG TABLET PO PRN (14:00)
[2019-08-23] MEDS ORDERED: DOCUSATE SODIUM 250MG CAPSULE PO PRN (14:00)
[2019-08-23] MEDS ORDERED: ONDANSETRON HCL 4MG/2ML INJ IV PRN (14:00)
[2019-08-23 22:00] VITALS: BP 108/66
[2019-08-23 22:17] LABS: CLARITY URINE CLEAR (CLEAR); COLOR URINE YELLOW (YELLOW); KETONES URINE NEGATIVE (NEGATIVE); LEUKOCYTE ESTERASE URINE NEGATIVE (NEGATIVE); NITRITE URINE NEGATIVE (NEGATIVE); OCCULT BLOOD URINE NEGATIVE (NEGATIVE); PH URINE 6.5 (4.5-8.0); PROTEIN URINE NEGATIVE (NEGATIVE); SPECIFIC GRAVITY URINE 1.009 (1.005-1.030)
[2019-08-23 22:37] LABS: *AMPHETAMINES SCREEN URINE NEGATIVE (NEGATIVE); *BARBITURATES SCREEN URINE NEGATIVE (NEGATIVE); *BENZODIAZEPINES SCREEN URINE NEGATIVE (NEGATIVE); *COCAINE SCREEN URINE PRESUMTIVE POSITIVE (NEGATIVE)
[2019-08-23 22:38] LABS: CANNABINOID URINE SCREEN NEGATIVE (NEGATIVE); METHADONE URINE SCREEN NEGATIVE (NEGATIVE); OPIATES URINE SCREEN NEGATIVE (NEGATIVE); PHENCYCLIDINE URINE SCREEN NEGATIVE (NEGATIVE)
[2019-08-23] MEDS: CARVEDILOL 3.125 MG TABLET PO SCH (23:00)
[2019-08-23] MEDS: FUROSEMIDE 40MG/4ML VIAL IV SCH ×2 (23:00→23:48)
[2019-08-23] MEDS ORDERED: LEVOFLOXACIN 500MG PREMIX 100 ML IV SCH (23:30)
[2019-08-23] MEDS: POTASSIUM CHLORIDE 20MEQ TABLET SR PO SCH (23:48)
[2019-08-23] MEDS: ENOXAPARIN 40MG/0.4ML SYR SUBCUT SCH (23:49)
[2019-08-24 00:49] VITALS: BP 108/66
[2019-08-24 04:00] VITALS: BP 114/75
[2019-08-24] MEDS: FUROSEMIDE 40MG/4ML VIAL IV SCH ×2 (06:32→17:23)
[2019-08-24 08:00] VITALS: BP 107/67
[2019-08-24] MEDS: CARVEDILOL 3.125 MG TABLET PO SCH ×2 (08:52→20:20)
[2019-08-24] MEDS: POTASSIUM CHLORIDE INJ 60 MEQ in DEXT 5% WATER 500 ML IV SCH (09:00)
[2019-08-24] MEDS: METOLAZONE 2.5MG TABLET PO SCH ×2 (09:27→17:23)
[2019-08-24] MEDS: POTASSIUM CHLORIDE 20MEQ TABLET SR PO SCH ×3 (09:27→17:22)
[2019-08-24 12:00] VITALS: BP 110/73
[2019-08-24 15:42] LABS: BG BASE EXCESS 9.2 mmol/L (-2.0-2.0); BG CARBOXYHEMOGLOBIN 0.9 % (0.5-1.5); BG DEOXYHEMOGLOBIN 0.1 % (0.0-5.0); BG FRACTION INSPIRED OXYGEN 100; BG HCO3 ACT 32.2 mmol/L (22.0-26.0); BG METHEMOGLOBIN 0.4 % (0.0-1.5); BG OXYGEN SATURATION 99.9 % (92.0-98.5); BG OXYHEMOGLOBIN 98.6 % (94.0-97.0); BG PCO2 38.1 mmHg (35.0-45.0); BG PH 7.545 (7.350-7.450); BG PO2 449.2 mmHg (75.0-100.0); BG SAMPLE SITE RIGHT BRACHIAL; BG TOTAL HEMOGLOBIN 14.4 g/dL (12.0-18.0); BG VENT MODE MASK - NRB
[2019-08-24 16:00] VITALS: BP 107/61
[2019-08-24] MEDS: ENOXAPARIN 40MG/0.4ML SYR SUBCUT SCH (20:20)
[2019-08-24] MEDS: LEVOFLOXACIN 500MG PREMIX 100 ML IV SCH (22:42)
[2019-08-25 00:38] LABS: CHLORIDE 93 mEq/L (98-107)
[2019-08-25 00:46] LABS: LDL CHOLESTEROL 101 mg/dL (5-100)
[2019-08-25 00:47] LABS: HDL CHOLESTEROL 50 mg/dL (40-59)
[2019-08-25] MEDS: MORPHINE SULFATE 2 MG/ML CPJ (NOT FOR IM USE) IV PRN ×2 (01:47→20:21)
[2019-08-25] MEDS: IPRATROPIUM BROMIDE (0.02%) 0.5MG/2.5ML NEB HHN SCH ×4 (02:16→19:45)
[2019-08-25] MEDS: POTASSIUM CHLORIDE INJ 60 MEQ in DEXT 5% WATER 500 ML IV SCH ×3 (02:42→17:44)
[2019-08-25] MEDS: FUROSEMIDE 40MG/4ML VIAL IV SCH ×2 (06:52→17:09)
[2019-08-25 06:59] LABS: HEMATOCRIT. 40.6 % (42.0-52.0); HEMOGLOBIN. 13.2 g/dL (14.0-18.0); MEAN CORPUSCULAR HEMOGLOBIN 27.1 pg (28.0-32.0); MEAN CORPUSCULAR VOLUME 83.1 fL (80.0-94.0); MEAN PLATELET VOLUME 8.3 fl (7.4-10.4); PLATELET 279 x1000/uL (130-400); RED BLOOD CELL COUNT 4.88 mill/uL (4.7-6.1); RED CELL DISTRIBUTION WIDTH 17.5 % (11.6-14.6)
[2019-08-25 07:03] LABS: CHLORIDE 93 mEq/L (98-107)
[2019-08-25 08:00] VITALS: BP 91/59
[2019-08-25] MEDS: POTASSIUM CHLORIDE 20MEQ TABLET SR PO SCH ×3 (08:50→17:09)
[2019-08-25] MEDS: CARVEDILOL 3.125 MG TABLET PO SCH ×2 (09:00→20:21)
[2019-08-25] MEDS ORDERED: LIDOCAINE HCL 1% 20ML VIAL (Pyxis) INJ ONE (09:29)
[2019-08-25] MEDS: METOLAZONE 5MG TABLET PO SCH ×2 (10:19→17:09)
[2019-08-25 12:00] VITALS: BP 100/76
[2019-08-25 16:00] VITALS: BP 93/69
[2019-08-25 16:17] LABS: PLATELET ESTIMATE NORMAL
[2019-08-25 17:06] LABS: PHOSPHORUS 2.5 mg/dL (2.5-4.9)
[2019-08-25] MEDS ORDERED: MAGNESIUM 2 G PREMIX 50 ML IV NR (20:00)
[2019-08-25] MEDS: ENOXAPARIN 40MG/0.4ML SYR SUBCUT SCH (20:17)
[2019-08-25] MEDS: LEVOFLOXACIN 500MG PREMIX 100 ML IV SCH (23:44)
[2019-08-26] VITALS: BP 103/66
[2019-08-26] MEDS: IPRATROPIUM BROMIDE (0.02%) 0.5MG/2.5ML NEB HHN SCH ×3 (01:50→08:34)
[2019-08-26 04:00] VITALS: BP 104/67
[2019-08-26] MEDS: POTASSIUM CHLORIDE INJ 60 MEQ in DEXT 5% WATER 500 ML IV SCH ×2 (04:03→05:11)
[2019-08-26 06:00] VITALS: BP 91/64
[2019-08-26 06:20] VITALS: BP 97/69
[2019-08-26] MEDS: FUROSEMIDE 40MG/4ML VIAL IV SCH (06:24)
[2019-08-26 06:30] VITALS: BP 92/66
[2019-08-26 06:56] LABS: HEMATOCRIT. 38.5 % (42.0-52.0); HEMOGLOBIN. 12.5 g/dL (14.0-18.0); MEAN CORPUSCULAR HEMOGLOBIN 27.2 pg (28.0-32.0); MEAN CORPUSCULAR VOLUME 83.3 fL (80.0-94.0); PLATELET 265 x1000/uL (130-400); RED BLOOD CELL COUNT 4.62 mill/uL (4.7-6.1); RED CELL DISTRIBUTION WIDTH 17.5 % (11.6-14.6)
[2019-08-26 08:00] VITALS: BP 91/60
[2019-08-26] MEDS: METOLAZONE 5MG TABLET PO SCH (08:58)
[2019-08-26] MEDS: CARVEDILOL 3.125 MG TABLET PO SCH (08:58)
[2019-08-26] MEDS: POTASSIUM CHLORIDE 20MEQ TABLET SR PO SCH (08:59)
[2019-08-26 17:11] LABS: PLATELET ESTIMATE NORMAL
== END 2019-08-26 10:48 | disposition left against medical advice (07) | DRG 917 ==
LOC: ER 09:29 → 7WST 13:44 → ENRESERV 20:37
PROVIDERS: ADMIT Internal Medicine Nephrology; ATTEND Internal Medicine Nephrology
PROC: B54MZZA Ultrasonography of Right Upper Extremity Veins, Guidance (ICD-10-PCS; principal; 2019-08-25)
PROC: 05HY33Z Insertion of Infusion Device into Upper Vein, Percutaneous Approach (ICD-10-PCS; 2019-08-25)
PROC: B51M1ZA Fluoroscopy of Right Upper Extremity Veins using Low Osmolar Contrast, Guidance (ICD-10-PCS; 2019-08-25)
DX: T40.5X1A Poisoning by cocaine, accidental (unintentional), initial encounter (principal); I50.43 Acute on chronic combined systolic (congestive) and diastolic (congestive) heart failure; J96.01 Acute respiratory failure with hypoxia; E46 Unspecified protein-calorie malnutrition; J68.0 Bronchitis and pneumonitis due to chemicals, gases, fumes and vapors; I42.9 Cardiomyopathy, unspecified; I11.0 Hypertensive heart disease with heart failure; E11.9 Type 2 diabetes mellitus without complications; E78.5 Hyperlipidemia, unspecified; E87.6 Hypokalemia; F17.210 Nicotine dependence, cigarettes, uncomplicated; I08.1 Rheumatic disorders of both mitral and tricuspid valves; I27.20 Pulmonary hypertension, unspecified; Z60.2 Problems related to living alone; I48.91 Unspecified atrial fibrillation; Y92.89 Other specified places as the place of occurrence of the external cause; Z79.01 Long term (current) use of anticoagulants; Z79.899 Other long term (current) drug therapy; Z86.711 Personal history of pulmonary embolism; Z86.718 Personal history of other venous thrombosis and embolism; Z86.79 Personal history of other diseases of the circulatory system; Z90.81 Acquired absence of spleen; Z91.14 Patient's other noncompliance with medication regimen; Z95.0 Presence of cardiac pacemaker; Z95.828 Presence of other vascular implants and grafts; Z88.8 Allergy status to other drugs, medicaments and biological substances; Z90.49 Acquired absence of other specified parts of digestive tract; Z68.24 Body mass index [BMI] 24.0-24.9, adult
CPT/HCPCS: 36415; 36573; 36600; 71045; 76937; 80048; 80053; 80061; 80305; 81003; 82375; 82805; 82962; 83735; 83880; 84100; 84132; 84484; 85025; 93005; 93970; 94640; 96374; 99285; C1725; C1893; J1650; J1940; J1956; J2270; J3475; J3480; J3490; J7060

== ENCOUNTER 2019-09-04 01:17 | Inpatient (IN) | payer MEDICARE, MEDICAID ==
[~2019-09-04] VITALS: Ht 190.5 cm; Wt 79.4 kg
[~2019-09-04 01:17] MED LIST changes: +OMEP40CA12 PO; -OMEP40CA34 PO
[2019-09-04] MEDS ORDERED: ONDANSETRON HCL 4MG/2ML INJ IV STA (02:19)
[2019-09-04] MEDS ORDERED: PIPERACILLIN/TAZ 3.375G PREMIX 50 ML IV ONE (02:30)
[2019-09-04] MEDS ORDERED: SODIUM CHLORIDE 0.9% 1000ML BAG (SEPSIS BOLUS) IV ONE (02:30)
[2019-09-04] MEDS ORDERED: VANCOMYCIN 1 G PREMIX 200 ML IV ONE (02:30)
[2019-09-04 02:42] LABS: HEMATOCRIT. 45.1 % (42.0-52.0); HEMOGLOBIN. 14.9 g/dL (14.0-18.0); MEAN CORPUSCULAR HEMOGLOBIN 27.5 pg (28.0-32.0); MEAN CORPUSCULAR VOLUME 83.4 fL (80.0-94.0); MEAN PLATELET VOLUME 7.8 fl (7.4-10.4); PLATELET 387 x1000/uL (130-400); RED CELL DISTRIBUTION WIDTH 18.1 % (11.6-14.6)
[2019-09-04 02:43] LABS: INR 1.1; PROTHROMBIN TIME 10.9 sec (9.6-11.0)
[2019-09-04 02:45] LABS: BG BASE EXCESS -3.9 mmol/L (-2.0-2.0); BG CARBOXYHEMOGLOBIN 0.5 % (0.5-1.5); BG DEOXYHEMOGLOBIN 6.6 % (0.0-5.0); BG FRACTION INSPIRED OXYGEN 21; BG HCO3 ACT 19.1 mmol/L (22.0-26.0); BG METHEMOGLOBIN 0.3 % (0.0-1.5); BG OXYGEN SATURATION 93.3 % (92.0-98.5); BG OXYHEMOGLOBIN 92.6 % (94.0-97.0); BG PCO2 28.8 mmHg (35.0-45.0); BG PO2 65.7 mmHg (75.0-100.0); BG SAMPLE SITE RIGHT BRACHIAL; BG TOTAL HEMOGLOBIN 12.4 g/dL (12.0-18.0); BG VENT MODE ROOM AIR
[2019-09-04 02:45] LABS: CHLORIDE 98 mEq/L (98-107)
[2019-09-04 05:05] LABS: PLATELET ESTIMATE NORMAL
[2019-09-04] MEDS ORDERED: DOCUSATE SODIUM 100MG CAPSULE PO PRN (05:15)
[2019-09-04] MEDS ORDERED: CLONIDINE 0.1MG TABLET PO PRN (05:15)
[2019-09-04] MEDS ORDERED: ONDANSETRON HCL 4MG/2ML INJ IV PRN (05:15)
[2019-09-04] MEDS ORDERED: MORPHINE SULFATE 2 MG/ML CPJ (NOT FOR IM USE) IV PRN (05:15)
[2019-09-04] MEDS ORDERED: ACETAMINOPHEN 325MG TABLET PO PRN (05:15)
[2019-09-04 05:20] LABS: CLARITY URINE CLEAR (CLEAR); COLOR URINE DARK YELLOW (YELLOW); KETONES URINE NEGATIVE (NEGATIVE); LEUKOCYTE ESTERASE URINE TRACE (NEGATIVE); NITRITE URINE NEGATIVE (NEGATIVE); OCCULT BLOOD URINE NEGATIVE (NEGATIVE); PH URINE 6.5 (4.5-8.0); PROTEIN URINE NEGATIVE (NEGATIVE); SPECIFIC GRAVITY URINE 1.018 (1.005-1.030)
[2019-09-04] MEDS: METHYLPREDNISOLONE SOD SUCC 125 MG/2 ML VIAL IV SCH ×4 (07:44→23:23)
[2019-09-04] MEDS ORDERED: LEVOFLOXACIN 500MG PREMIX 100 ML IV SCH (07:45)
[2019-09-04] MEDS ORDERED: METOLAZONE 2.5MG TABLET PO SCH (09:00)
[2019-09-04] MEDS ORDERED: CARVEDILOL 3.125 MG TABLET PO SCH (09:00)
[2019-09-04] MEDS ORDERED: POTASSIUM CHLORIDE 20MEQ TABLET SR PO SCH (09:00)
[2019-09-04] MEDS ORDERED: FUROSEMIDE 40MG/4ML VIAL IV SCH (09:00)
[2019-09-04] MEDS: OMEPRAZOLE 20MG CAPSULE EXTENDED RELEASE PO SCH ×2 (09:21→21:00)
[2019-09-04] MEDS: ENOXAPARIN 40MG/0.4ML SYR SUBCUT SCH (10:43)
[2019-09-04] MEDS ORDERED: IPRATROPIUM/ALBUTEROL 0.5-3(2.5)MG/3ML NEB HHN NR (13:00)
[2019-09-04 14:49] LABS: *AMPHETAMINES SCREEN URINE NEGATIVE (NEGATIVE); *BARBITURATES SCREEN URINE NEGATIVE (NEGATIVE); *BENZODIAZEPINES SCREEN URINE NEGATIVE (NEGATIVE); *COCAINE SCREEN URINE NEGATIVE (NEGATIVE); CANNABINOID URINE SCREEN NEGATIVE (NEGATIVE); OPIATES URINE SCREEN NEGATIVE (NEGATIVE); PHENCYCLIDINE URINE SCREEN NEGATIVE (NEGATIVE)
[2019-09-04 14:50] LABS: METHADONE URINE SCREEN NEGATIVE (NEGATIVE)
[2019-09-04 15:52] VITALS: BP 119/73
[2019-09-04 16:00] VITALS: BP 119/73
[2019-09-04] MEDS: FUROSEMIDE 40MG/4ML VIAL IV SCH ×2 (17:15→17:27)
[2019-09-04 20:00] VITALS: BP 99/59
[2019-09-04] MEDS: IPRATROPIUM/ALBUTEROL 0.5-3(2.5)MG/3ML NEB NEB SCH (20:15)
[2019-09-04] MEDS: CARVEDILOL 3.125 MG TABLET PO SCH (21:00)
[2019-09-05] VITALS: BP 86/51
[2019-09-05] MEDS: IPRATROPIUM/ALBUTEROL 0.5-3(2.5)MG/3ML NEB NEB SCH ×4 (02:43→20:10)
[2019-09-05 06:00] VITALS: BP 133/79
[2019-09-05] MEDS: FUROSEMIDE 40MG/4ML VIAL IV SCH ×2 (06:07→18:49)
[2019-09-05] MEDS: OMEPRAZOLE 20MG CAPSULE EXTENDED RELEASE PO SCH (06:08)
[2019-09-05] MEDS: METHYLPREDNISOLONE SOD SUCC 125 MG/2 ML VIAL IV SCH ×3 (06:08→18:50)
[2019-09-05 06:57] LABS: HEMATOCRIT. 38.6 % (42.0-52.0); HEMOGLOBIN. 12.8 g/dL (14.0-18.0); MEAN CORPUSCULAR HEMOGLOBIN 27.4 pg (28.0-32.0); MEAN CORPUSCULAR VOLUME 82.4 fL (80.0-94.0); MEAN PLATELET VOLUME 7.5 fl (7.4-10.4); PLATELET 325 x1000/uL (130-400); RED BLOOD CELL COUNT 4.68 mill/uL (4.7-6.1); RED CELL DISTRIBUTION WIDTH 17.7 % (11.6-14.6)
[2019-09-05 07:08] LABS: CHLORIDE 104 mEq/L (98-107)
[2019-09-05 07:23] LABS: LDL CHOLESTEROL 115 mg/dL (5-100)
[2019-09-05 07:24] LABS: HDL CHOLESTEROL 52 mg/dL (40-59)
[2019-09-05 08:00] VITALS: BP 96/58
[2019-09-05] MEDS ORDERED: LEVOFLOXACIN 500MG PREMIX 100 ML IV SCH (08:00)
[2019-09-05] MEDS: CARVEDILOL 3.125 MG TABLET PO SCH ×2 (08:43→21:00)
[2019-09-05] MEDS: ENOXAPARIN 40MG/0.4ML SYR SUBCUT SCH (09:33)
[2019-09-05] MEDS: METOLAZONE 2.5MG TABLET PO SCH (09:34)
[2019-09-05] MEDS ORDERED: SODIUM POLYSTYRENE SULFONATE 15 G/60 ML BOT PO NR (10:00)
[2019-09-05 11:08] LABS: PLATELET ESTIMATE NORMAL
[2019-09-05 12:00] VITALS: BP 104/72
[2019-09-05 16:00] VITALS: BP 119/83
[2019-09-05 20:00] VITALS: BP 113/80
[2019-09-05] MEDS: FAMOTIDINE 20MG TABLET PO SCH (21:35)
[2019-09-06] VITALS: BP 109/79
[2019-09-06] MEDS: METHYLPREDNISOLONE SOD SUCC 125 MG/2 ML VIAL IV SCH ×2 (00:34→06:59)
[2019-09-06] MEDS: FUROSEMIDE 40MG/4ML VIAL IV SCH ×2 (06:59→17:36)
[2019-09-06] MEDS: IPRATROPIUM/ALBUTEROL 0.5-3(2.5)MG/3ML NEB NEB SCH ×3 (07:40→21:49)
[2019-09-06 08:00] VITALS: BP 103/56
[2019-09-06] MEDS ORDERED: LEVOFLOXACIN 500MG PREMIX 100 ML IV SCH (08:00)
[2019-09-06 08:21] LABS: HEMATOCRIT. 34.8 % (42.0-52.0); HEMOGLOBIN. 11.6 g/dL (14.0-18.0); MEAN CORPUSCULAR HEMOGLOBIN 27.2 pg (28.0-32.0); MEAN CORPUSCULAR VOLUME 81.8 fL (80.0-94.0); MEAN PLATELET VOLUME 8.3 fl (7.4-10.4); PLATELET 372 x1000/uL (130-400); RED BLOOD CELL COUNT 4.26 mill/uL (4.7-6.1); RED CELL DISTRIBUTION WIDTH 17.8 % (11.6-14.6)
[2019-09-06 08:56] LABS: CHLORIDE 99 mEq/L (98-107)
[2019-09-06] MEDS: CARVEDILOL 3.125 MG TABLET PO SCH ×2 (09:00→20:41)
[2019-09-06] MEDS: ENOXAPARIN 40MG/0.4ML SYR SUBCUT SCH (09:00)
[2019-09-06] MEDS: FAMOTIDINE 20MG TABLET PO SCH ×2 (09:29→20:48)
[2019-09-06] MEDS: METOLAZONE 2.5MG TABLET PO SCH (09:29)
[2019-09-06] MEDS ORDERED: POTASSIUM CHLORIDE INJ 60 MEQ in DEXT 5% WATER 500 ML IV NR (10:30)
[2019-09-06 12:00] VITALS: BP 102/53
[2019-09-06 12:30] LABS: NUCLEATED RED BLOOD CELLS 1 /100 WBC; PLATELET ESTIMATE NORMAL
[2019-09-06 16:00] VITALS: BP 111/73
[2019-09-06] MEDS ORDERED: METHYLPREDNISOLONE SOD SUCC 125 MG/2 ML VIAL IV SCH (17:00)
[2019-09-06] MEDS: POTASSIUM CHLORIDE 20MEQ/PACKET PO SCH (18:33)
[2019-09-06 20:00] VITALS: BP 100/71
[2019-09-07] VITALS: BP 110/80
[2019-09-07] MEDS: POTASSIUM CHLORIDE 20MEQ/PACKET PO SCH
[2019-09-07] MEDS: IPRATROPIUM/ALBUTEROL 0.5-3(2.5)MG/3ML NEB NEB SCH ×3 (02:35→14:11)
[2019-09-07] MEDS ORDERED: POTASSIUM CHLORIDE 20MEQ/PACKET PO NR (03:30)
[2019-09-07] MEDS: FUROSEMIDE 40MG/4ML VIAL IV SCH ×2 (06:15→16:35)
[2019-09-07 07:25] LABS: HEMATOCRIT. 34.5 % (42.0-52.0); HEMOGLOBIN. 11.7 g/dL (14.0-18.0); MEAN CORPUSCULAR HEMOGLOBIN 27.6 pg (28.0-32.0); MEAN CORPUSCULAR VOLUME 81.5 fL (80.0-94.0); MEAN PLATELET VOLUME 7.6 fl (7.4-10.4); PLATELET 345 x1000/uL (130-400); RED BLOOD CELL COUNT 4.23 mill/uL (4.7-6.1); RED CELL DISTRIBUTION WIDTH 17.9 % (11.6-14.6)
[2019-09-07 07:38] LABS: CHLORIDE 99 mEq/L (98-107)
[2019-09-07 08:00] VITALS: BP 109/64
[2019-09-07] MEDS: CARVEDILOL 3.125 MG TABLET PO SCH ×2 (08:21→20:24)
[2019-09-07] MEDS: METHYLPREDNISOLONE SOD SUCC 40 MG/ML VIAL IV SCH ×2 (08:31→16:35)
[2019-09-07] MEDS: ENOXAPARIN 40MG/0.4ML SYR SUBCUT SCH ×2 (08:31→09:00)
[2019-09-07] MEDS: FAMOTIDINE 20MG TABLET PO SCH ×3 (08:31→20:24)
[2019-09-07] MEDS: METOLAZONE 2.5MG TABLET PO SCH (08:31)
[2019-09-07 08:42] LABS: ATYPICAL LYMPHOCYTES 1; PLATELET ESTIMATE NORMAL
[2019-09-07] MEDS ORDERED: POTASSIUM CHLORIDE 10MEQ TABLET SR PO NR (10:15)
[2019-09-07] MEDS: LEVOFLOXACIN 500MG TABLET PO SCH (10:39)
[2019-09-07 12:00] VITALS: BP 113/77
[2019-09-07 13:12] LABS: BG BASE EXCESS -1.1 mmol/L (-2.0-2.0); BG CARBOXYHEMOGLOBIN 0.1 % (0.5-1.5); BG DEOXYHEMOGLOBIN 3.6 % (0.0-5.0); BG FRACTION INSPIRED OXYGEN 21; BG HCO3 ACT 20.5 mmol/L (22.0-26.0); BG METHEMOGLOBIN 0.2 % (0.0-1.5); BG OXYGEN SATURATION 96.4 % (92.0-98.5); BG OXYHEMOGLOBIN 96.1 % (94.0-97.0); BG PCO2 26.4 mmHg (35.0-45.0); BG PH 7.509 (7.350-7.450); BG PO2 87.4 mmHg (75.0-100.0); BG SAMPLE SITE RIGHT BRACHIAL; BG VENT MODE ROOM AIR
[2019-09-07] MEDS ORDERED: POTASSIUM CHLORIDE 20MEQ TABLET SR PO NR ×3 (14:30→22:00)
[2019-09-07 16:00] VITALS: BP 108/64
[2019-09-07] MEDS ORDERED: MAGNESIUM 2 G PREMIX 50 ML IV SCH (16:00)
[2019-09-07 16:40] LABS: PHOSPHORUS 2.3 mg/dL (2.5-4.9)
[2019-09-07 20:00] VITALS: BP 90/50
[2019-09-07] MEDS: ZOLPIDEM TARTRATE 5MG TABLET PO PRN (20:24)
[2019-09-07] MEDS: AMIODARONE HCL 200 MG TABLET PO SCH (20:24)
[2019-09-08] VITALS: BP 95/55
[2019-09-08] MEDS: IPRATROPIUM/ALBUTEROL 0.5-3(2.5)MG/3ML NEB NEB SCH ×4 (02:33→21:16)
[2019-09-08] MEDS: FUROSEMIDE 40MG/4ML VIAL IV SCH ×2 (06:55→16:25)
[2019-09-08 08:00] VITALS: BP 95/63
[2019-09-08 08:20] LABS: CHLORIDE 96 mEq/L (98-107)
[2019-09-08] MEDS: ENOXAPARIN 40MG/0.4ML SYR SUBCUT SCH (09:00)
[2019-09-08] MEDS: CARVEDILOL 3.125 MG TABLET PO SCH ×2 (09:00→21:00)
[2019-09-08] MEDS: FAMOTIDINE 20MG TABLET PO SCH ×2 (09:00→21:00)
[2019-09-08] MEDS: METHYLPREDNISOLONE SOD SUCC 40 MG/ML VIAL IV SCH ×2 (09:20→16:26)
[2019-09-08] MEDS: POTASSIUM CHLORIDE 20MEQ TABLET SR PO SCH ×2 (09:21→16:26)
[2019-09-08] MEDS: METOLAZONE 2.5MG TABLET PO SCH (09:21)
[2019-09-08] MEDS: AMIODARONE HCL 200 MG TABLET PO SCH ×2 (09:21→20:48)
[2019-09-08] MEDS: LEVOFLOXACIN 500MG TABLET PO SCH (10:53)
[2019-09-08 12:00] VITALS: BP 109/73
[2019-09-08] MEDS ORDERED: MAGNESIUM 2 G PREMIX 50 ML IV NR (13:30)
[2019-09-08 16:00] VITALS: BP 111/72
[2019-09-08 20:00] VITALS: BP 109/75
[2019-09-08] MEDS: ZOLPIDEM TARTRATE 5MG TABLET PO PRN (20:50)
[2019-09-09] VITALS: BP 100/70
[2019-09-09] MEDS: IPRATROPIUM/ALBUTEROL 0.5-3(2.5)MG/3ML NEB NEB SCH ×4 (02:22→21:38)
[2019-09-09 08:00] VITALS: BP 108/87
[2019-09-09] MEDS: CARVEDILOL 3.125 MG TABLET PO SCH ×2 (08:13→20:41)
[2019-09-09] MEDS: ENOXAPARIN 40MG/0.4ML SYR SUBCUT SCH (08:25)
[2019-09-09] MEDS: FAMOTIDINE 20MG TABLET PO SCH ×2 (08:29→20:53)
[2019-09-09] MEDS: AMIODARONE HCL 200 MG TABLET PO SCH ×2 (08:29→20:52)
[2019-09-09] MEDS: POTASSIUM CHLORIDE 20MEQ TABLET SR PO SCH ×2 (08:29→17:46)
[2019-09-09] MEDS: METOLAZONE 2.5MG TABLET PO SCH (08:29)
[2019-09-09] MEDS: FUROSEMIDE 40MG/4ML VIAL IV SCH ×2 (08:29→17:46)
[2019-09-09] MEDS: METHYLPREDNISOLONE SOD SUCC 40 MG/ML VIAL IV SCH (08:30)
[2019-09-09 09:27] LABS: HEMATOCRIT. 41.3 % (42.0-52.0); HEMOGLOBIN. 13.6 g/dL (14.0-18.0); MEAN CORPUSCULAR VOLUME 81.7 fL (80.0-94.0); MEAN PLATELET VOLUME 7.6 fl (7.4-10.4); PLATELET 336 x1000/uL (130-400); RED BLOOD CELL COUNT 5.06 mill/uL (4.7-6.1); RED CELL DISTRIBUTION WIDTH 18.5 % (11.6-14.6)
[2019-09-09 09:30] LABS: CHLORIDE 92 mEq/L (98-107)
[2019-09-09 09:35] LABS: PHOSPHORUS 3.3 mg/dL (2.5-4.9)
[2019-09-09] MEDS ORDERED: BISACODYL 5MG TABLET PO PRN (10:45)
[2019-09-09 11:16] LABS: NUCLEATED RED BLOOD CELLS 1 /100 WBC; PLATELET ESTIMATE NORMAL
[2019-09-09] MEDS: LACTULOSE 20G/30ML UDC PO NR (11:39)
[2019-09-09] MEDS: LEVOFLOXACIN 500MG TABLET PO SCH (11:39)
[2019-09-09 12:00] VITALS: BP 122/87
[2019-09-09 16:00] VITALS: BP 111/74
[2019-09-09 20:00] VITALS: BP 108/81
[2019-09-09] MEDS ORDERED: ZOLPIDEM TARTRATE 5MG TABLET PO PRN (22:15)
[2019-09-10] MEDS: IPRATROPIUM/ALBUTEROL 0.5-3(2.5)MG/3ML NEB NEB SCH ×4 (02:08→21:01)
[2019-09-10 04:00] VITALS: BP 100/66
[2019-09-10] MEDS: FUROSEMIDE 40MG/4ML VIAL IV SCH ×2 (06:57→16:46)
[2019-09-10 08:00] VITALS: BP 111/75
[2019-09-10] MEDS: METOLAZONE 2.5MG TABLET PO SCH (08:21)
[2019-09-10] MEDS: METHYLPREDNISOLONE SOD SUCC 40 MG/ML VIAL IV SCH (08:21)
[2019-09-10] MEDS: AMIODARONE HCL 200 MG TABLET PO SCH ×2 (08:21→21:34)
[2019-09-10] MEDS: FAMOTIDINE 20MG TABLET PO SCH ×2 (08:21→21:33)
[2019-09-10] MEDS: CARVEDILOL 3.125 MG TABLET PO SCH ×2 (08:21→21:00)
[2019-09-10] MEDS: LACTULOSE 20G/30ML UDC PO NR ×2 (08:22→10:45)
[2019-09-10] MEDS: ENOXAPARIN 40MG/0.4ML SYR SUBCUT SCH (08:22)
[2019-09-10] MEDS: POTASSIUM CHLORIDE 20MEQ TABLET SR PO SCH ×3 (08:22→21:34)
[2019-09-10 12:00] VITALS: BP 101/65
[2019-09-10] MEDS: LEVOFLOXACIN 500MG TABLET PO SCH (12:09)
[2019-09-10 12:57] LABS: HEMOGLOBIN. 13.6 g/dL (14.0-18.0); MEAN CORPUSCULAR HEMOGLOBIN 27.1 pg (28.0-32.0); MEAN CORPUSCULAR VOLUME 81.8 fL (80.0-94.0); MEAN PLATELET VOLUME 7.4 fl (7.4-10.4); PLATELET 332 x1000/uL (130-400); RED BLOOD CELL COUNT 5.01 mill/uL (4.7-6.1); RED CELL DISTRIBUTION WIDTH 18.7 % (11.6-14.6)
[2019-09-10 13:10] LABS: CHLORIDE 88 mEq/L (98-107)
[2019-09-10 13:16] LABS: PHOSPHORUS 3.2 mg/dL (2.5-4.9)
[2019-09-10 13:50] LABS: PLATELET ESTIMATE NORMAL
[2019-09-10 16:00] VITALS: BP 98/61
[2019-09-10] MEDS: MAGNESIUM OXIDE 400MG TABLET PO SCH (16:45)
[2019-09-10 20:30] VITALS: BP 108/73
[2019-09-10] MEDS ORDERED: MAGNESIUM CITRATE 300ML SOLUTION PO NR (21:00)
[2019-09-11] VITALS: BP 111/78
[2019-09-11] MEDS: IPRATROPIUM/ALBUTEROL 0.5-3(2.5)MG/3ML NEB NEB SCH ×3 (01:07→15:02)
[2019-09-11] MEDS ORDERED: DIATR MEGLU/DIATRIZOATE SOLN 30ML PO NR (01:30)
[2019-09-11] MEDS: HYDROCODONE/ACETAMINOPHEN 5/325MG TABLET PO PRN ×2 (01:58→10:38)
[2019-09-11 04:00] VITALS: BP 105/67
[2019-09-11] MEDS ORDERED: IOHEXOL-300 100 ML BOTTLE ONE (04:34)
[2019-09-11] MEDS: POTASSIUM CHLORIDE 20MEQ TABLET SR PO SCH ×2 (06:03→15:30)
[2019-09-11] MEDS ORDERED: FUROSEMIDE 40MG TABLET PO SCH (09:00)
[2019-09-11] MEDS: ENOXAPARIN 40MG/0.4ML SYR SUBCUT SCH ×2 (09:00→09:20)
[2019-09-11] MEDS ORDERED: PREDNISONE 20MG TABLET PO SCH (09:00)
[2019-09-11] MEDS: AMIODARONE HCL 200 MG TABLET PO SCH (09:19)
[2019-09-11] MEDS: FAMOTIDINE 20MG TABLET PO SCH (09:19)
[2019-09-11] MEDS: CARVEDILOL 3.125 MG TABLET PO SCH (09:20)
[2019-09-11] MEDS: METOLAZONE 2.5MG TABLET PO SCH (09:20)
[2019-09-11] MEDS: MAGNESIUM OXIDE 400MG TABLET PO SCH (09:20)
[2019-09-11 09:33] LABS: HEMATOCRIT. 42.2 % (42.0-52.0); HEMOGLOBIN. 14.1 g/dL (14.0-18.0); MEAN CORPUSCULAR HEMOGLOBIN 27.3 pg (28.0-32.0); MEAN CORPUSCULAR VOLUME 81.7 fL (80.0-94.0); MEAN PLATELET VOLUME 7.2 fl (7.4-10.4); PLATELET 330 x1000/uL (130-400); RED BLOOD CELL COUNT 5.17 mill/uL (4.7-6.1); RED CELL DISTRIBUTION WIDTH 18.7 % (11.6-14.6)
[2019-09-11 09:52] LABS: CHLORIDE 90 mEq/L (98-107)
[2019-09-11] MEDS: LEVOFLOXACIN 500MG TABLET PO SCH (10:38)
[2019-09-11] MEDS: LACTULOSE 20G/30ML UDC PO NR (10:51)
[2019-09-11 13:35] LABS: NUCLEATED RED BLOOD CELLS 1 /100 WBC
[2019-09-11 13:36] LABS: PLATELET ESTIMATE NORMAL
[2019-09-11 17:03] VITALS: BP 117/80
== END 2019-09-11 20:10 | DRG 193 ==
LOC: ER 01:17 → 5WST 04:28 → EDBEDREQ 04:31 → EDBEDREQTM 04:31 → ENRESERV 07:52 → CANRESERV 07:52 → EDBEDREQSVC 09:46 → ENRESERV 14:35 → 5WST 09-05 19:38
PROVIDERS: ADMIT Internal Medicine Nephrology; ATTEND Internal Medicine Nephrology
DX: J18.9 Pneumonia, unspecified organism (principal); J96.21 Acute and chronic respiratory failure with hypoxia; I50.43 Acute on chronic combined systolic (congestive) and diastolic (congestive) heart failure; J44.1 Chronic obstructive pulmonary disease with (acute) exacerbation; E44.0 Moderate protein-calorie malnutrition; I47.2 Ventricular tachycardia; J44.0 Chronic obstructive pulmonary disease with (acute) lower respiratory infection; E87.2 Acidosis; I11.0 Hypertensive heart disease with heart failure; I25.118 Atherosclerotic heart disease of native coronary artery with other forms of angina pectoris; I25.5 Ischemic cardiomyopathy; I48.91 Unspecified atrial fibrillation; E83.42 Hypomagnesemia; E87.6 Hypokalemia; I27.20 Pulmonary hypertension, unspecified; K59.00 Constipation, unspecified; T50.2X5A Adverse effect of carbonic-anhydrase inhibitors, benzothiadiazides and other diuretics, initial encounter; I36.1 Nonrheumatic tricuspid (valve) insufficiency; E87.5 Hyperkalemia; R07.89 Other chest pain; Y92.89 Other specified places as the place of occurrence of the external cause; Z86.711 Personal history of pulmonary embolism; Z86.718 Personal history of other venous thrombosis and embolism; Z91.19 Patient's noncompliance with other medical treatment and regimen; Z95.0 Presence of cardiac pacemaker; Z95.1 Presence of aortocoronary bypass graft; Z95.828 Presence of other vascular implants and grafts; Z68.21 Body mass index [BMI] 21.0-21.9, adult; Z79.899 Other long term (current) drug therapy; Z88.8 Allergy status to other drugs, medicaments and biological substances; Z90.81 Acquired absence of spleen; Z87.891 Personal history of nicotine dependence; Z59.0 Homelessness
CPT/HCPCS: 36415; 36600; 71045; 74177; 80048; 80053; 80061; 80305; 81003; 82375; 82805; 83605; 83735; 83880; 84100; 84132; 84484; 85025; 87804; 93005; 93970; 94640; 99291; C1893; J1650; J1940; J1956; J2270; J2405; J2543; J2920; J2930; J3370; J3475; J3480; J7030; J7060; J7512; Q9963; Q9967

== ENCOUNTER 2019-12-12 09:42 | Inpatient (IN) | payer MEDICARE, MEDICAID ==
[~2019-12-12] VITALS: Ht 193 cm; Wt 75.4 kg
[2019-12-12] MEDS ORDERED: TETANUS, DIPHTHERIA, PERTUSSIS VAC/PF 0.5ML (>7YR OLD) IM ONE (10:15)
[2019-12-12] MEDS ORDERED: AZITHROMYCIN 500 MG in DEXT 5% WATER 250 ML IV ONE (11:00)
[2019-12-12] MEDS ORDERED: CEFTRIAXONE 1 G PREMIX 50 ML IV ONE (11:00)
[2019-12-12] MEDS ORDERED: DEXAMETHASONE 10 MG/ML VIAL IV ONE (11:00)
[2019-12-12 11:01] LABS: CHLORIDE 93 mEq/L (98-107)
[2019-12-12 11:02] LABS: HEMATOCRIT. 43.6 % (42.0-52.0); HEMOGLOBIN. 14.5 g/dL (14.0-18.0); MEAN CORPUSCULAR VOLUME 90.5 fL (80.0-94.0); MEAN PLATELET VOLUME 8.7 fl (7.4-10.4); PLATELET 336 x1000/uL (130-400); RED BLOOD CELL COUNT 4.82 mill/uL (4.7-6.1); RED CELL DISTRIBUTION WIDTH 17.2 % (11.6-14.6)
[2019-12-12 11:11] LABS: INR 1.1; PROTHROMBIN TIME 11.6 sec (9.6-11.0)
[2019-12-12] MEDS ORDERED: INSULIN REGULAR (HUMULIN R) 300UNITS/3ML IV NR (11:30)
[2019-12-12] MEDS ORDERED: LIDOCAINE HCL/EPINEPHRINE 1%-EPI 1:100,000 30 ML VIAL INFIL ONE (11:30)
[2019-12-12] MEDS ORDERED: ACETAMINOPHEN 500MG TABLET PO ONE (11:30)
[2019-12-12] MEDS ORDERED: DEXTROSE 50% WATER 50ML SYRINGE IV NR (11:30)
[2019-12-12] MEDS ORDERED: SODIUM BICARBONATE 8.4% 1 MEQ/ML 50ML SYR IV NR (11:30)
[2019-12-12 11:45] LABS: PLATELET ESTIMATE NORMAL
[2019-12-12] MEDS ORDERED: LIDOCAINE HCL/EPINEPHRINE 1%-EPI 1:100,000 20 ML VIAL ONE (11:59)
[2019-12-12] MEDS ORDERED: ALBUTEROL 6.7GM HFA INHALER ORI ONE (12:45)
[2019-12-12 12:46] LABS: CLARITY URINE CLEAR (CLEAR); COLOR URINE DARK YELLOW (YELLOW); KETONES URINE NEGATIVE (NEGATIVE); LEUKOCYTE ESTERASE URINE NEGATIVE (NEGATIVE); NITRITE URINE NEGATIVE (NEGATIVE); OCCULT BLOOD URINE NEGATIVE (NEGATIVE); PROTEIN URINE NEGATIVE (NEGATIVE); SPECIFIC GRAVITY URINE 1.019 (1.005-1.030)
[2019-12-12] MEDS ORDERED: CLONIDINE 0.1MG TABLET PO PRN (13:15)
[2019-12-12] MEDS ORDERED: DOCUSATE SODIUM 100MG CAPSULE PO PRN (13:15)
[2019-12-12] MEDS ORDERED: ACETAMINOPHEN 325MG TABLET PO PRN (13:15)
[2019-12-12] MEDS ORDERED: MORPHINE SULFATE 2 MG/ML CPJ (NOT FOR IM USE) IV PRN (13:15)
[2019-12-12] MEDS ORDERED: ONDANSETRON HCL 4MG/2ML INJ IV PRN (13:15)
[2019-12-12] MEDS: SODIUM CHLORIDE 0.45% 1,000 ML IV SCH (14:00)
[2019-12-12 19:10] LABS: *AMPHETAMINES SCREEN URINE NEGATIVE (NEGATIVE); *BARBITURATES SCREEN URINE NEGATIVE (NEGATIVE); *BENZODIAZEPINES SCREEN URINE NEGATIVE (NEGATIVE); *COCAINE SCREEN URINE NEGATIVE (NEGATIVE); METHADONE URINE SCREEN NEGATIVE (NEGATIVE); OPIATES URINE SCREEN NEGATIVE (NEGATIVE); PHENCYCLIDINE URINE SCREEN NEGATIVE (NEGATIVE)
[2019-12-12 19:11] LABS: CANNABINOID URINE SCREEN NEGATIVE (NEGATIVE)
[2019-12-12] MEDS: CARVEDILOL 3.125 MG TABLET PO SCH (22:00)
[2019-12-12 22:22] VITALS: BP 98/65
[2019-12-12 22:26] VITALS: BP 98/65
[2019-12-13 00:05] VITALS: BP 104/72
[2019-12-13] MEDS: SODIUM CHLORIDE 0.45% 1,000 ML IV SCH (01:41)
[2019-12-13 04:00] VITALS: BP 115/78
[2019-12-13 08:00] VITALS: BP 110/73
[2019-12-13 08:44] LABS: BASOPHILS % 0.5 % (0.0-2.0); EOSINOPHILS % 0.9 % (0.0-5.0); HEMATOCRIT. 39.5 % (42.0-52.0); HEMOGLOBIN. 12.6 g/dL (14.0-18.0); MEAN CORPUSCULAR HEMOGLOBIN 29.7 pg (28.0-32.0); MEAN CORPUSCULAR VOLUME 93.3 fL (80.0-94.0); MEAN PLATELET VOLUME 9.7 fl (7.4-10.4); MONOCYTES % 12.6 % (2.0-8.0); PLATELET 141 x1000/uL (130-400); RED BLOOD CELL COUNT 4.24 mill/uL (4.7-6.1); RED CELL DISTRIBUTION WIDTH 14.6 % (11.6-14.6)
[2019-12-13 08:46] LABS: CHLORIDE 106 mEq/L (98-107)
[2019-12-13] MEDS: CARVEDILOL 3.125 MG TABLET PO SCH ×2 (08:52→21:24)
[2019-12-13 08:58] LABS: LDL CHOLESTEROL 53 mg/dL (5-100)
[2019-12-13 08:59] LABS: HDL CHOLESTEROL 86 mg/dL (40-59)
[2019-12-13] MEDS ORDERED: CEFTRIAXONE 1 G PREMIX 50 ML IV SCH (11:00)
[2019-12-13 12:00] VITALS: BP 105/64
[2019-12-13] MEDS: DOXYCYCLINE 100 MG in DEXT 5% WATER 100 ML IV SCH (13:00)
[2019-12-13] MEDS: CEFTRIAXONE 1 G PREMIX 50 ML IV SCH ×2 (14:00→14:50)
[2019-12-13 16:00] VITALS: BP 117/68
[2019-12-13 20:00] VITALS: BP 117/76
[2019-12-14] VITALS: BP 123/72
[2019-12-14] MEDS: DOXYCYCLINE 100 MG in DEXT 5% WATER 100 ML IV SCH ×2 (00:21→18:35)
[2019-12-14 04:00] VITALS: BP 106/68
[2019-12-14 08:00] VITALS: BP 94/51
[2019-12-14 08:18] LABS: HEMATOCRIT. 37.1 % (42.0-52.0); HEMOGLOBIN. 12.4 g/dL (14.0-18.0); MEAN CORPUSCULAR HEMOGLOBIN 29.7 pg (28.0-32.0); MEAN CORPUSCULAR VOLUME 88.7 fL (80.0-94.0); MEAN PLATELET VOLUME 8.3 fl (7.4-10.4); PLATELET 265 x1000/uL (130-400); RED BLOOD CELL COUNT 4.19 mill/uL (4.7-6.1); RED CELL DISTRIBUTION WIDTH 16.7 % (11.6-14.6)
[2019-12-14] MEDS: CARVEDILOL 3.125 MG TABLET PO SCH ×2 (09:00→23:00)
[2019-12-14] MEDS ORDERED: SODIUM CHLORIDE 0.45% 1,000 ML IV SCH (09:15)
[2019-12-14 13:17] VITALS: BP 107/77
[2019-12-14 13:52] LABS: COVID-19 PCR RNA DETECTED
[2019-12-14 14:41] LABS: NUCLEATED RED BLOOD CELLS 3 /100 WBC
[2019-12-14 14:42] LABS: PLATELET ESTIMATE NORMAL
[2019-12-14] MEDS: CEFTRIAXONE 1 G PREMIX 50 ML IV SCH (16:58)
[2019-12-14 16:59] VITALS: BP 110/67
[2019-12-14 20:00] VITALS: BP 112/72
[2019-12-14] MEDS: HYDROXYCHLOROQUINE SULFATE 200MG TABLET PO SCH (22:45)
[2019-12-14] MEDS: ASCORBIC ACID 500 MG TABLET PO SCH (22:46)
[2019-12-14] MEDS: ZINC SULFATE 220 MG ( 50 ) CAPSULE PO SCH (22:56)
[2019-12-15] VITALS (82 sets, daily range): BP systolic 75–126; BP diastolic 46–85
[2019-12-15] MEDS ORDERED: FUROSEMIDE 40MG TABLET PO SCH (01:00)
[2019-12-15] MEDS: DOXYCYCLINE 100 MG in DEXT 5% WATER 100 ML IV SCH ×2 (01:12→12:04)
[2019-12-15] MEDS ORDERED: ALBUTEROL 6.7GM HFA INHALER ORI PRN (01:15)
[2019-12-15 02:55] LABS: BG BASE EXCESS -0.3 mmol/L (-2.0-2.0); BG DEOXYHEMOGLOBIN 5.7 % (0.0-5.0); BG FRACTION INSPIRED OXYGEN 100; BG HCO3 ACT 24.4 mmol/L (22.0-26.0); BG METHEMOGLOBIN 0.2 % (0.0-1.5); BG OXYGEN SATURATION 94.2 % (92.0-98.5); BG OXYHEMOGLOBIN 93.1 % (94.0-97.0); BG PCO2 40.2 mmHg (35.0-45.0); BG PH 7.401 (7.350-7.450); BG PO2 72.6 mmHg (75.0-100.0); BG SAMPLE SITE LEFT RADIAL; BG TOTAL HEMOGLOBIN 13.7 g/dL (12.0-18.0); BG VENT MODE MASK - NRB
[2019-12-15] MEDS ORDERED: MORPHINE SULFATE 2 MG/ML CPJ (NOT FOR IM USE) IV PRN (04:15)
[2019-12-15] MEDS ORDERED: METHYLPREDNISOLONE SOD SUCC 125 MG/2 ML VIAL IV NR (04:15)
[2019-12-15 05:45] LABS: HEMATOCRIT. 39.5 % (42.0-52.0); MEAN CORPUSCULAR HEMOGLOBIN 29.6 pg (28.0-32.0); MEAN CORPUSCULAR VOLUME 89.8 fL (80.0-94.0); MEAN PLATELET VOLUME 8.6 fl (7.4-10.4); PLATELET 249 x1000/uL (130-400); RED BLOOD CELL COUNT 4.39 mill/uL (4.7-6.1); RED CELL DISTRIBUTION WIDTH 16.9 % (11.6-14.6)
[2019-12-15 05:54] LABS: PHOSPHORUS 4.8 mg/dL (2.5-4.9)
[2019-12-15] MEDS: CARVEDILOL 3.125 MG TABLET PO SCH ×2 (08:12→21:00)
[2019-12-15] MEDS: HYDROXYCHLOROQUINE SULFATE 200MG TABLET PO SCH (08:30)
[2019-12-15] MEDS: ASCORBIC ACID 500 MG TABLET PO SCH (08:30)
[2019-12-15] MEDS: ZINC SULFATE 220 MG ( 50 ) CAPSULE PO SCH (08:30)
[2019-12-15 08:55] LABS: BG BASE EXCESS 0.1 mmol/L (-2.0-2.0); BG CARBOXYHEMOGLOBIN 0.7 % (0.5-1.5); BG DEOXYHEMOGLOBIN 7.5 % (0.0-5.0); BG HCO3 ACT 24.8 mmol/L (22.0-26.0); BG METHEMOGLOBIN 0.3 % (0.0-1.5); BG OXYGEN SATURATION 92.4 % (92.0-98.5); BG OXYHEMOGLOBIN 91.5 % (94.0-97.0); BG PCO2 40.5 mmHg (35.0-45.0); BG PH 7.405 (7.350-7.450); BG PO2 64.7 mmHg (75.0-100.0); BG SAMPLE SITE RIGHT BRACHIAL; BG TOTAL HEMOGLOBIN 13.4 g/dL (12.0-18.0); BG VENT MODE MASK - NRB
[2019-12-15 10:19] LABS: NUCLEATED RED BLOOD CELLS 3 /100 WBC; PLATELET ESTIMATE NORMAL
[2019-12-15] MEDS ORDERED: LIDOCAINE HCL 1% 20ML VIAL (Pyxis) INJ ONE (10:54)
[2019-12-15] MEDS ORDERED: DEXTROSE 50% WATER 50ML SYRINGE IV PRN (11:45)
[2019-12-15] MEDS: BLOOD SUGAR DIAGNOSTIC STRIP TEST SCH ×3 (11:56→23:45)
[2019-12-15] MEDS: DEXT 5%/0.9% NACL 1,000 ML IV SCH (12:37)
[2019-12-15 14:49] LABS: BG BASE EXCESS -0.6 mmol/L (-2.0-2.0); BG CARBOXYHEMOGLOBIN 0.6 % (0.5-1.5); BG DEOXYHEMOGLOBIN 1.6 % (0.0-5.0); BG FRACTION INSPIRED OXYGEN 100; BG HCO3 ACT 26.9 mmol/L (22.0-26.0); BG METHEMOGLOBIN 0.2 % (0.0-1.5); BG OXYGEN SATURATION 98.4 % (92.0-98.5); BG OXYHEMOGLOBIN 97.6 % (94.0-97.0); BG PCO2 56.6 mmHg (35.0-45.0); BG PH 7.294 (7.350-7.450); BG SAMPLE SITE RIGHT RADIAL; BG TIDAL VOLUME(mL) 500 mL; BG TOTAL HEMOGLOBIN 12.8 g/dL (12.0-18.0); BG VENT MODE VENT - A/C; BG VENT RATE 16 set
[2019-12-15] MEDS: CEFTRIAXONE 1 G PREMIX 50 ML IV SCH (15:09)
[2019-12-15] MEDS ORDERED: HYDROXYCHLOROQUINE SULFATE 200MG TABLET PO SCH (17:00)
[2019-12-15] MEDS ORDERED: NOREPINEPHRINE 4 MG in DEXT 5% WATER 246 ML IV PRN (18:00)
[2019-12-15] MEDS ORDERED: NOREPINEPHRINE 32 MG in DEXT 5% WATER 468 ML IV PRN (21:00)
[2019-12-15 21:06] LABS: BG BASE EXCESS -5.3 mmol/L (-2.0-2.0); BG CARBOXYHEMOGLOBIN 0.5 % (0.5-1.5); BG DEOXYHEMOGLOBIN 6.2 % (0.0-5.0); BG FRACTION INSPIRED OXYGEN 80; BG HCO3 ACT 24.8 mmol/L (22.0-26.0); BG OXYGEN SATURATION 93.7 % (92.0-98.5); BG OXYHEMOGLOBIN 92.3 % (94.0-97.0); BG PCO2 70.9 mmHg (35.0-45.0); BG PH 7.161 (7.350-7.450); BG PO2 80.9 mmHg (75.0-100.0); BG SAMPLE SITE LEFT RADIAL; BG TIDAL VOLUME(mL) 450 mL; BG TOTAL HEMOGLOBIN 13.7 g/dL (12.0-18.0); BG VENT MODE VENT - A/C; BG VENT RATE 20 set
[2019-12-15 23:07] LABS: BG BASE EXCESS -6.1 mmol/L (-2.0-2.0); BG CARBOXYHEMOGLOBIN 0.5 % (0.5-1.5); BG DEOXYHEMOGLOBIN 4.5 % (0.0-5.0); BG FRACTION INSPIRED OXYGEN 60; BG HCO3 ACT 23.1 mmol/L (22.0-26.0); BG METHEMOGLOBIN 0.4 % (0.0-1.5); BG OXYGEN SATURATION 95.5 % (92.0-98.5); BG OXYHEMOGLOBIN 94.6 % (94.0-97.0); BG PCO2 62.4 mmHg (35.0-45.0); BG PH 7.186 (7.350-7.450); BG SAMPLE SITE LEFT RADIAL; BG TIDAL VOLUME(mL) 500 mL; BG TOTAL HEMOGLOBIN 13.6 g/dL (12.0-18.0); BG VENT MODE VENT - A/C; BG VENT RATE 20 set
[2019-12-16] VITALS (37 sets, daily range): BP systolic 43–131; BP diastolic 22–61
[2019-12-16] MEDS: DOXYCYCLINE 100 MG in DEXT 5% WATER 100 ML IV SCH (00:32)
[2019-12-16] MEDS ORDERED: PHENYLEPHRINE 80 MG in DEXT 5% WATER 492 ML IV PRN (02:36)
[2019-12-16] MEDS: DEXT 5%/0.9% NACL 1,000 ML IV SCH (04:09)
[2019-12-16] MEDS: BLOOD SUGAR DIAGNOSTIC STRIP TEST SCH (05:13)
[2019-12-16] MEDS ORDERED: DOPAMINE 800MG PREMIX (DOUBLE) 250 ML IV PRN (05:58)
[2019-12-16 06:08] LABS: HEMOGLOBIN. 12.1 g/dL (14.0-18.0); MEAN CORPUSCULAR HEMOGLOBIN 29.5 pg (28.0-32.0); MEAN CORPUSCULAR VOLUME 92.7 fL (80.0-94.0); RED CELL DISTRIBUTION WIDTH 17.8 % (11.6-14.6)
[2019-12-16 10:09] LABS: NUCLEATED RED BLOOD CELLS 5 /100 WBC
[2019-12-16 10:22] LABS: PLATELET 223 x1000/uL (130-400)
[2019-12-16] MEDS ORDERED: CEFTRIAXONE 2 G in DEXTROSE 5% WATER 50 ML IV SCH (17:00)
== END 2019-12-16 07:14 | disposition expired | DRG 871 ==
LOC: ER 10:01 → 7WST 13:16 → ENRESERV 21:00 → 7WST 12-14 06:42 → MICUNO 12-15 02:50
PROVIDERS: ADMIT Internal Medicine; ATTEND Internal Medicine
PROC: 0HQ1XZZ Repair Face Skin, External Approach (ICD-10-PCS; principal; 2019-12-12)
PROC: 0BH17EZ Insertion of Endotracheal Airway into Trachea, Via Natural or Artificial Opening (ICD-10-PCS; 2019-12-15)
PROC: B54MZZA Ultrasonography of Right Upper Extremity Veins, Guidance (ICD-10-PCS; 2019-12-15)
PROC: 05HY33Z Insertion of Infusion Device into Upper Vein, Percutaneous Approach (ICD-10-PCS; 2019-12-15)
PROC: 5A1935Z Respiratory Ventilation, Less than 24 Consecutive Hours (ICD-10-PCS; 2019-12-15)
PROC: 5A12012 Performance of Cardiac Output, Single, Manual (ICD-10-PCS; 2019-12-16)
DX: A41.89 Other specified sepsis (principal); J96.20 Acute and chronic respiratory failure, unspecified whether with hypoxia or hypercapnia; J12.89 Other viral pneumonia; R65.21 Severe sepsis with septic shock; U07.1 COVID-19; I50.43 Acute on chronic combined systolic (congestive) and diastolic (congestive) heart failure; G92 Toxic encephalopathy; E87.2 Acidosis; E87.1 Hypo-osmolality and hyponatremia; J44.0 Chronic obstructive pulmonary disease with (acute) lower respiratory infection; N17.9 Acute kidney failure, unspecified; I13.0 Hypertensive heart and chronic kidney disease with heart failure and stage 1 through stage 4 chronic kidney disease, or unspecified chronic kidney disease; I42.0 Dilated cardiomyopathy; I42.9 Cardiomyopathy, unspecified; N18.3 Chronic kidney disease, stage 3 (moderate); E87.5 Hyperkalemia; F14.10 Cocaine abuse, uncomplicated; I07.1 Rheumatic tricuspid insufficiency; I48.91 Unspecified atrial fibrillation; S01.81XA Laceration without foreign body of other part of head, initial encounter; S01.111A Laceration without foreign body of right eyelid and periocular area, initial encounter; J20.9 Acute bronchitis, unspecified; K76.1 Chronic passive congestion of liver; I27.20 Pulmonary hypertension, unspecified; A41.50 Gram-negative sepsis, unspecified; W01.0XXA Fall on same level from slipping, tripping and stumbling without subsequent striking against object, initial encounter; Y93.89 Activity, other specified; Y99.8 Other external cause status; Y92.009 Unspecified place in unspecified non-institutional (private) residence as the place of occurrence of the external cause; Z78.1 Physical restraint status; Z79.01 Long term (current) use of anticoagulants; Z86.711 Personal history of pulmonary embolism; Z86.718 Personal history of other venous thrombosis and embolism; Z95.0 Presence of cardiac pacemaker; Z95.1 Presence of aortocoronary bypass graft; Z95.828 Presence of other vascular implants and grafts; Z88.8 Allergy status to other drugs, medicaments and biological substances; Z79.899 Other long term (current) drug therapy
CPT/HCPCS: 31500; 36415; 36600; 71045; 76937; 80048; 80053; 80061; 80305; 81003; 82140; 82248; 82375; 82728; 82805; 82962; 83605; 83735; 83880; 84100; 84132; 84145; 84484; 85025; 85379; 87076; 87804; 90715; 93005; 94640; 99285; C1725; J0456; J0696; J1100; J1265; J1815; J2270; J2370; J2930; J3490; J7042; J7060